=== PATIENT | male | born 1980 | race Caucasian/White ===

== ENCOUNTER 2023-09-18 10:33 | Inpatient (IN) ==
--- NOTE | 2023-09-18 11:14 | Emergency Department Note ---
Impression & Plan Syncope, Anemia, AMS (altered mental status), Elevated troponin ED Provider Note ED Provider Note NAME: DEWAYNE CALDERON AGE:43 SEX: Male : 1980 ARRIVES VIA: EMS INFORMANT: Patient ED PROVIDER(s): Sierra Tsang DO CHIEF COMPLAINT: Syncope versus seizure-like event HPI: This is a 43-year-old male presents emergency department due to concern for event [facility] where bystanders witnessed him go unresponsive and have seizure-like activity that lasted approximately 45 seconds per EMS report from bystanders on scene. Patient here at this time remembers standing in sheets, states he was drinking Mountain Dew and using his chewing tobacco, and does not remember coming here. He denies any recent illness, fevers or chills. He states he takes no medication. He denies any use of alcohol or recreational drugs. He denies any history of seizures in himself or any family members. PAST MEDICAL HISTORY:See Below PAST SURGICAL HISTORY:See Below FAMILY HISTORY:See Below SOCIAL HISTORY:See Below HOME MEDICATIONS:See Below ALLERGIES:See Below VITALS:See Below PHYSICAL EXAMINATION: GENERAL: alert, well appearing, well nourished, no distress, non-toxic EYE EXAM: normal conjunctiva, PERRL and EOM's grossly intact OROPHARYNX: no exudate, no erythema, lips, buccal mucosa, and tongue normal and mucous membranes are dry, remnants of chewing tobacco noted throughout the mouth NECK: supple, no nuchal rigidity, no adenopathy, non-tender LUNGS: Clear to auscultation. Normal chest wall mechanics, no w/r/r HEART: no murmurs, S1 normal and S2 normal ABDOMEN: abdomen soft, non-tender, normo-active bowel sounds, no masses, no rebound or guarding. BACK: Back is symmetrical on inspection and there is no deformity, no midline tenderness, no CVA tenderness. SKIN: no rashes, petechiae, orbruising UPPER EXTREMITIES: upper extremities are grossly normal. FROM, nml pulses b/l. LOWER EXTREMITIES: No pitting edema. FROM, nml pulses b/l. NEURO EXAM: Slow to answer questions and gives inappropriate responses to questions, cranial nerves II-XII grossly intact, normal speech, no facial droop,nogross weakness of arms, no gross weakness of legs. Gross sensation intact. No ataxia. Mildly tremulous throughout Vital Signs: reviewed and remarkable Differential Diagnosis: vasovagal event, infection, hypoglycemia, electrolyte abnormalities, toxidrome, substance abuse, dysrhythmia, ACS, as well as others were entertained. MEDICAL DECISION MAKING: This is a 43-year-old male brought in by EMS after an event at [facility] that was described them as possible syncope versus seizure. On arrival patient is able to answer few questions however does seem confused and does not remember much about the events of today. He was noted to be tachycardic however other vital signs were stable. Labs drawn and sent, IV established, EKG and chest ray performed bedside interpreted by me and patient monitored on telemetry. He was started on IV fluids initially due to concern for clinical dehydration and tachycardia noted. H&H revealed significant anemia which likely contributed to the events today as well as is contributing to his tachycardia. Patient did not seem to be able to understand my discussion at bedside regarding the need for blood transfusion and risk versus benefits. Given his confusion I asked him if I could contact a family member. He did provide me with his mom's name and phone number. Upon speaking to her we discussed his presentation and my concerns regarding his anemia. She gave verbal consent which was noted on the consent form for blood transfusion. 2 units were ordered. Protonix IV bolus and drip also added due to concern for possible alcohol use and occult GI bleed. CT head was negative. After finding of significant anemia and concern for occult GI bleed, patient was sent for CT of the abdomen and pelvis additionally. This did not show any acute pathology either. It is unclear if patient has been compliant with previously prescribed mental health medications additionally. Patient was noted to have an elevated troponin, I suspect this is due to demand based on significant anemia, although further evaluation may be necessary. Case discussed with the hospitalist team for additional evaluation and management. Consultation(s): 1340: DIscussed with Dr. Bishop, [facility] hospitalist team, for additional evaluation and management. ER Treatment Provided: 0021: Discussed with mom Susannah Brooks, regarding patient's condition. She states he has a history of schizoaffective disorder and sees providers at [facility] for his mental health. She states he does have a history of intermittent alcohol abuse, stating he goes on "binges". She states he also abuses nicotine. She states he has no history of substance abuse otherwise. She states he is supposed to be taking Seroquel and hydroxyzine from [facility] but frequently is noncompliant. She denies any knowledge of a prior history of GI bleed and the patient or any knowledge of a history of anemia. She was not aware that he was in the emergency room. After extensive discussion regarding my concerns, she gave verbal consent for a blood transfusion. This was noted on the consent form as I do not feel the patient can make an informed decision at this time as he seems confused. Diagnostics Interpreted By Me: -ECG: Sinus tachycardia at 120, normal axis, normal intervals, mild apparent peaked T waves noted in precordial leads, no other acute ST/T wave changes -Cardiac Monitoring: An order was placed for continuous cardiac monitoring. The monitor shows a rate of 113 with sinus tachycardia rhythm. -Laboratory studies: As stated above and show below. -Imaging studies: X-ray Chest: A single view study of the chest was reviewed and was negative for cardiomegaly, focal infiltrate, effusion, pulmonary edema, or wide mediastinum. Triage Nursing Note Reviewed Prior/Outside Records Reviewed Critical care: Critical care of 50 min performed to assess and manage high likelihood of life- threatening anemia and altered mental status, involving labs and imaging performed with assessment to evaluate anemia and altered mental status diagnosis with frequent reassessment. This time includes bedside time, treatment discussions with patient/family/consultants, documentation time and excludes procedure time. 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 current occupational status: disabled Feels Safe at Home: Yes Assistive Devices: None Allergies Allergies Allergy/AdvReac Type Severity Reaction Status Date / Time No Known Allergies Allergy Mild Verified 09/01/23 13:51 Home Meds Home Medications Medication Instructions Recorded Confirmed hydroxyzine HCl 10 mg tablet 10 mg PO DAILY PRN Anxiety 09/18/23 09/18/23 quetiapine 25 mg tablet See Rx Instructions .Route .COMPLEX 09/18/23 09/18/23 quetiapine 50 mg tablet See Rx Instructions .Route .COMPLEX 09/18/23 09/18/23 risperidone 3 mg tablet 0 mg PO QAM 09/18/23 09/18/23 Results & Data (ED) Vital Signs Vital Signs - 24 hr 09/18/23 13:44 Temperature 37.0 C Temperature Source Oral Pulse Rate 105 H Respiratory Rate 23 Blood Pressure 141/82 H Blood Pressure Mean 101 Pulse Oximetry 100 Laboratory Data 09/19/23 05:43 09/19/23 05:38 Lab Results 09/18/23 09/18/23 09/18/23 Range/Units 10:40 12:08 12:36 WBC 11.74 H (4.8-10.8) K/ul RBC 1.36 L (4.70-6.10) M/uL Hgb 4.1 L* (14.0-18.0) g/dl Hct 13.2 L* (42.0-52.0) % MCV 97.1 (80.0-100.0) fL MCH 30.1 (25.0-34.0) pg MCHC 31.1 L (32.0-36.0) g/dL RDW Std Deviation 52.6 H (36.4-46.3) fL RDW Coeff of Federico 15.0 H (11.5-14.5) % Plt Count 524 H (130-400) K/uL MPV 9.4 (9.4-12.4) fL Immature Gran % (Auto) 1.5 % Neut % (Auto) 82.5 % Lymph % (Auto) 7.9 % Rapides % (Auto) 7.8 % Eos % (Auto) 0.0 % Baso % (Auto) 0.3 % Reticulocyte % (Auto) 18.98 H (0.50-2.00) % Neut # (Auto) 9.68 H (1.40-6.50) K/uL Lymph # (Auto) 0.93 L (1.20-3.40) K/uL Rapides # (Auto) 0.92 H (0.11-0.59) K/uL Eos # (Auto) 0.00 (0.00-0.50) K/uL Baso # (Auto) 0.03 (0.00-0.20) K/uL Reticulocyte # 0.300 H (0.020-0.100) 10^6/uL Immature Gran # (Auto) 0.18 (0.01-0.20) K/uL Absolute Nucleated RBC 0.03 (0.00-0.12) K/uL Nucleated RBC % (auto) 0.3 % Polychromasia 1+ Hypochromasia Present PT 12.0 (9.0-12.0) Seconds INR 1.1 (0.9-1.1) Sodium 131 L (136-145) mmol/L Potassium 3.5 (3.5-5.1) mmol/L Chloride 98 (98-107) mmol/L Carbon Dioxide 15 L (21-32) mmol/L Anion Gap 18 H (3-11) BUN 16 (6-23) mg/dl Creatinine 1.02 (0.6-1.4) mg/dl Est Cr Clr Drug Dosing 89.7 ml/min Est GFR ( Amer) 102.4 ml/min Est GFR (Non-Af Amer) 88.4 ml/min BUN/Creatinine Ratio 15.7 (10-20) Glucose 144 H (70-99(Fasting)) mg/dl Calcium 8.0 L (8.6-10.3) mg/dl Magnesium 2.2 (1.7-2.4) mg/dl Iron < 10 L (35-175) mcg/dl TIBC TNP Unsaturated IBC 395 H (155-355) mcg/dl Transferrin % Sat TNP Ferritin 22.5 (8-388) ng/ml Total Bilirubin 0.3 (0.2-1.0) mg/dl AST 34 (13-39) U/L ALT 64 H (7-52) U/L Alkaline Phosphatase 69 (34-104) U/L Lactate Dehydrogenase 204 (86-244) U/L Troponin I High Sens 84.5 H* (0-20) pg/ml Total Protein 5.8 L (6.0-8.3) gm/dl Albumin 3.6 (3.4-5.0) gm/dl Globulin 2.2 L (2.5-4.0) gm/dl Albumin/Globulin Ratio 1.6 (0.9-2) Lipase 25 (11-82) U/L Vitamin B12 369 (180-914) pg/ml Folate > 22.30 (>5.38) ng/ml Procalcitonin 0.03 (0-0.5) ng/ml TSH 2.187 (0.300-4.500) uIu/ml Ethyl Alcohol mg/dL < 10.0 (<10.0) mg/dl Blood Type O Positive Blood Type Recheck Antibody Screen NEGATIVE Crossmatch See Detail 09/18/23 Range/Units 12:39 WBC (4.8-10.8) K/ul RBC (4.70-6.10) M/uL Hgb (14.0-18.0) g/dl Hct (42.0-52.0) % MCV (80.0-100.0) fL MCH (25.0-34.0) pg MCHC (32.0-36.0) g/dL RDW Std Deviation (36.4-46.3) fL RDW Coeff of Federico (11.5-14.5) % Plt Count (130-400) K/uL MPV (9.4-12.4) fL Immature Gran % (Auto) % Neut % (Auto) % Lymph % (Auto) % Rapides % (Auto) % Eos % (Auto) % Baso % (Auto) % Reticulocyte % (Auto) (0.50-2.00) % Neut # (Auto) (1.40-6.50) K/uL Lymph # (Auto) (1.20-3.40) K/uL Rapides # (Auto) (0.11-0.59) K/uL Eos # (Auto) (0.00-0.50) K/uL Baso # (Auto) (0.00-0.20) K/uL Reticulocyte # (0.020-0.100) 10^6/uL Immature Gran # (Auto) (0.01-0.20) K/uL Absolute Nucleated RBC (0.00-0.12) K/uL Nucleated RBC % (auto) % Polychromasia Hypochromasia PT (9.0-12.0) Seconds INR (0.9-1.1) Sodium (136-145) mmol/L Potassium (3.5-5.1) mmol/L Chloride (98-107) mmol/L Carbon Dioxide (21-32) mmol/L Anion Gap (3-11) BUN (6-23) mg/dl Creatinine (0.6-1.4) mg/dl Est Cr Clr Drug Dosing ml/min Est GFR ( Amer) ml/min Est GFR (Non-Af Amer) ml/min BUN/Creatinine Ratio (10-20) Glucose (70-99(Fasting)) mg/dl Calcium (8.6-10.3) mg/dl Magnesium (1.7-2.4) mg/dl Iron (35-175) mcg/dl TIBC Unsaturated IBC (155-355) mcg/dl Transferrin % Sat Ferritin (8-388) ng/ml Total Bilirubin (0.2-1.0) mg/dl AST (13-39) U/L ALT (7-52) U/L Alkaline Phosphatase (34-104) U/L Lactate Dehydrogenase (86-244) U/L Troponin I High Sens (0-20) pg/ml Total Protein (6.0-8.3) gm/dl Albumin (3.4-5.0) gm/dl Globulin (2.5-4.0) gm/dl Albumin/Globulin Ratio (0.9-2) Lipase (11-82) U/L Vitamin B12 (180-914) pg/ml Folate (>5.38) ng/ml Procalcitonin (0-0.5) ng/ml TSH (0.300-4.500) uIu/ml Ethyl Alcohol mg/dL (<10.0) mg/dl Blood Type Blood Type Recheck O Positive Antibody Screen Crossmatch Administered Medications Discontinued Medications Sodium Chloride (Nss) 1,000 mls @ 999 mls/hr IV .Q1H1M ONE Stop: 09/18/23 12:10 Last Infusion: 09/18/23 12:19 Dose: Infused Documented By: Admin: 09/18/23 11:16 Dose: 999 mls/hr Documented By: SHANTELLE Pantoprazole Sodium 80 mg/ (Dextrose) 120 mls @ 480 mls/hr IV NOW ONE Stop: 09/18/23 12:46 Last Infusion: 09/18/23 13:53 Dose: Infused Documented By: Admin: 09/18/23 13:10 Dose: 480 mls/hr Documented By: SHANTELLE Pantoprazole Sodium 40 mg/ (Dextrose) 100 mls @ 20 mls/hr IV Q5H KELLEN Stop: 10/18/23 12:59 Last Admin: 09/19/23 08:36 Dose: 8 mg/hr, 20 mls/hr Documented By: Infusion: 09/19/23 08:31 Dose: Infused Documented By: Admin: 09/19/23 03:31 Dose: 8 mg/hr, 20 mls/hr Documented By: Infusion: 09/19/23 03:29 Dose: Infused Documented By: Admin: 09/18/23 22:29 Dose: 8 mg/hr, 20 mls/hr Documented By: Infusion: 09/18/23 22:29 Dose: Infused Documented By: Admin: 09/18/23 17:46 Dose: 8 mg/hr, 20 mls/hr Documented By: Infusion: 09/18/23 17:46 Dose: Infused Documented By: Admin: 09/18/23 13:53 Dose: 8 mg/hr, 20 mls/hr Documented By: SHANTELLE Sodium Chloride (Nss) 1,000 mls @ 125 mls/hr IV .Q8H KELLEN Stop: 10/18/23 13:29 Last Infusion: 09/19/23 07:26 Dose: Infused Documented By: Admin: 09/18/23 13:26 Dose: 125 mls/hr Documented By: SHANTELLE Lorazepam 1 mg/ Syringe 1 mls @ 2 mls/min IV ONE PRN; Protocol PRN Reason: EtoH Withdrawal AWSS 6-10 Last Admin: 09/18/23 19:44 Dose: 2 mls/min Documented By: CPB Lactated Ringer's (Lr) 1,000 mls @ 100 mls/hr IV .Q10H KELLEN Stop: 10/18/23 14:14 Last Infusion: 09/19/23 08:40 Dose: Infused Documented By: Admin: 09/19/23 00:43 Dose: 100 mls/hr Documented By: Infusion: 09/19/23 00:43 Dose: Infused Documented By: Admin: 09/18/23 15:24 Dose: 100 mls/hr Documented By: DAYAMI Thiamine HCl 500 mg/ Sodium (Chloride) 55 mls @ 210 mls/hr IV Q8H KELLEN Stop: 09/20/23 22:59 Last Infusion: 09/19/23 07:03 Dose: Infused Documented By: AMYaron Admin: 09/19/23 06:37 Dose: 210 mls/hr Documented By: Infusion: 09/18/23 22:44 Dose: Infused Documented By: Admin: 09/18/23 22:27 Dose: 210 mls/hr Documented By: ELY Folic Acid 1 mg/ Syringe 10 mls @ 5 mls/min IV ONE ONE Stop: 09/18/23 14:31 Last Admin: 09/18/23 15:24 Dose: 5 mls/min Documented By: DAYAMI Folic Acid 1 mg/ Syringe 10 mls @ 5 mls/min IV QAM KELLEN Stop: 10/19/23 08:59 Last Admin: 09/19/23 08:37 Dose: 5 mls/min Documented By: ALAYNA Thiamine HCl 500 mg/ Sodium (Chloride) 55 mls @ 210 mls/hr IV NOW STA Stop: 09/18/23 15:10 Last Infusion: 09/18/23 16:49 Dose: Infused Documented By: Admin: 09/18/23 16:18 Dose: 210 mls/hr Documented By: DAYAMI Potassium Chloride (K Enzo / Wtr) 10 meq in 100 mls @ 100 mls/hr IV Q1H KELLEN Stop: 09/18/23 18:14 Last Infusion: 09/18/23 20:45 Dose: Infused Documented By: Admin: 09/18/23 19:37 Dose: 100 mls/hr Documented By: Infusion: 09/18/23 18:44 Dose: Infused Documented By: Admin: 09/18/23 17:44 Dose: 100 mls/hr Documented By: Infusion: 09/18/23 17:36 Dose: Infused Documented By: Admin: 09/18/23 16:36 Dose: 100 mls/hr Documented By: DAYAMI Acetaminophen (Ofirmev) 1,000 mg in 100 mls @ 400 mls/hr IV NOW STA Stop: 09/18/23 15:57 Last Infusion: 09/18/23 16:27 Dose: Infused Documented By: Admin: 09/18/23 15:50 Dose: 400 mls/hr Documented By: DAYAMI Potassium Chloride/Dextrose/Sod Cl (D5nss + 20meq Kcl) 20 meq in 1,000 mls @ 80 mls/hr IV .[id number] [facility]; Protocol Stop: 10/19/23 07:59 Last Admin: 09/19/23 10:51 Dose: 80 mls/hr Documented By: ALAYNA Ioversol (Optiray 320 100ml) 93 ml IV ONCE ONE Stop: 09/18/23 12:53 Last Admin: 09/18/23 12:53 Dose: 93 ml Documented By: SERA Miscellaneous (Remove Nicoderm Patch) 1 each N/A DAILY@0859 [facility] Stop: 10/19/23 08:58 Last Admin: 09/19/23 08:37 Dose: Not Given Documented By: ALAYNA Nicotine (Nicotine 14 Mg/24 Hr Patch) [facility] Stop: 10/19/23 08:59 Last Admin: 09/19/23 08:37 Dose: Not Given Documented By: MelissaO Nicotine (Nicotine 14 Mg/24 Hr Patch) 14 mg TD NOW STA Stop: 09/18/23 14:55 Last Admin: 09/18/23 15:25 Dose: 14 mg Documented By: DAYAMI Pantoprazole Sodium (Pantoprazole Bolus/Drip) 1 each IV NOW STA Stop: 09/18/23 12:33 Last Admin: 09/18/23 13:53 Dose: Not Given Documented By: SHANTELLE Imaging Data Radiologist's Impression: Chest X-Ray 09/18/23 11:10 SINGLE VIEW CHEST CLINICAL HISTORY: Seizure. Vomiting. FINDINGS: 2 AP, portable, upright chest radiographs are compared to study dated 10/02/2021. The cardiomediastinal silhouette is unremarkable. The pulmonary vasculature appears congested. Airspace opacities are seen at both lung bases. No pneumothorax is seen. The bony thorax is grossly intact. IMPRESSION: 1. The pulmonary vasculature appears congested. 2. Airspace opacities are seen at both lung bases. This could represent a component of pulmonary edema versus an infectious/inflammatory. Clinical correlation will be required and radiographic follow-up to resolution is recommended ACT 112: Negative or not required by law. Electronically signed by: Sanjay Kraft M.D. 09/18/2023 11:[address] 09/18/23 11:10 CT OF THE HEAD WITHOUT CONTRAST CLINICAL HISTORY: Seizure. COMPARISON STUDY: Head CT June 12, 2013. CT DOSE: 625.8 mGy.cm TECHNIQUE: Helical axial images of the head were obtained without IV contrast. Automated exposure control was utilized for the study. A dose lowering technique was utilized adhering to the principles of ALARA. FINDINGS: No acute intracranial hemorrhage, midline shift or mass effect is present. The ventricular system is unremarkable. The basal cisterns are patent. No extra-axial collections are present. There are no findings to suggest acute dural sinus thrombosis or acute territorial infarct. No significant calvarial abnormalities are present. Visualized portions of the sinuses and mastoid air cells are clear. IMPRESSION: 1. No acute intracranial findings. 2. No calvarial fractures. ACT 112: Negative or not required by law. Electronically signed by: Carlos Alberto Martínez M.D. 09/18/2023 12:00 PM Abdomen/Pelvis CT 09/18/23 12:33 CT OF THE ABDOMEN AND PELVIS WITH CONTRAST CLINICAL HISTORY: anemia, vomiting, likely GI bleed COMPARISON STUDY: None. TECHNIQUE: Following IV administration of 93 mL of Optiray, axial images of the abdomen and pelvis were obtained from the lung bases to the proximal femurs. Images were reviewed in the axial, sagittal, and coronal planes. IV contrast was administered without complication. Automated exposure control was utilized for the study. A dose lowering technique was utilized adhering to the principles of ALARA. CT DOSE: 1071.24 mGy.cm FINDINGS: Lung bases are unremarkable. No pneumatosis, free air or portal venous gas is present. The liver, spleen, adrenal glands, left kidney and pancreas are normal. There is no biliary or pancreatic ductal dilatation. No peripancreatic or pericholecystic infiltration is present. Water attenuation 1.9 cm right renal lesion reflects a cyst. There are no urinary calculi. Bladder is mildly distended. Caliber and wall thickness of small and large bowel are normal. The appendix is normal. Sensitivity for detection of bowel mucosal lesions is diminished on CT but none are identified. There is no lymphadenopathy. There are no fluid collections. Major vasculature is patent. IMPRESSION: 1. No acute process within the abdomen or pelvis. 2. No bowel obstruction. No bowel wall thickening. Normal appendix. ACT 112: Negative or not required by law. Electronically signed by: Carlos Alberto Martínez M.D. 09/18/2023 1:10 PM Discharge Plan Visit Data Chief Complaint: Seizure Stated Complaint: SEIZURE, SYNCOPE, FALL ED Provider: Sierra Tsang Discharge Problem: Syncope, Anemia, AMS (altered mental status), Elevated troponin Patient Disposition: Admitted As Inpatient Discharge Instructions Interventions: ED Discharge Assessment Last Done: 09/18/23 15:12
[2023-09-18] MEDS: SODIUM CHLORIDE 0.9% 1,000 ML IV ONE (11:16)
--- NOTE | 2023-09-18 11:42 | XRay Report ---
SINGLE VIEW CHEST CLINICAL HISTORY: Seizure. Vomiting. FINDINGS: 2 AP, portable, upright chest radiographs are compared to study dated 10/02/2021. The cardio mediastinal silhouette is unremarkable. The pulmonary vasculature appears congested. Airspace opaciti es are seen at both lung bases. No pneumothorax is seen. The bony thorax is grossly intact. IMPRESSION: 1. The pulmonary vasculature appears congested. 2. Airspace opacities are seen at both lung bases. This could represent a component of pulmonary neal a versus an infectious/inflammatory. Clinical correlation will be required and radiographic follow-up to resolution is recommended ACT 112: Negative or not required by law. Electronically signed by: Sanjay Kraft M.D. 09/18/2023 11:41 AM
[2023-09-18 12:00] LABS: Alanine Aminotransferase 64 U/L (7-52); Albumin Globulin Ratio 1.6 (0.9-2); Albumin Level 3.6 gm/dl (3.4-5.0); Alkaline Phosphatase 69 U/L (34-104); Anion Gap 18 (3-11); Aspartate Aminotransferase 34 U/L (13-39); BUN Creatinine Ratio 15.7 (10-20); Bilirubin,Total 0.3 mg/dl (0.2-1.0); Blood Urea Nitrogen 16 mg/dl (6-23); Carbon Dioxide 15 mmol/L (21-32); Chloride 98 mmol/L (98-107); Creatinine Clr Calc Pharmacy 89.7 ml/min; Est GFR (African American) 102.4 ml/min; Est GFR (Non-African American) 88.4 ml/min; Globulin 2.2 gm/dl (2.5-4.0); Glucose 144 mg/dl (70-99(Fasting)); Lipase 25 U/L (11-82); Magnesium 2.2 mg/dl (1.7-2.4); Potassium 3.5 mmol/L (3.5-5.1); Sodium 131 mmol/L (136-145); Total Protein 5.8 gm/dl (6.0-8.3)
--- NOTE | 2023-09-18 12:01 | CT Scan Report ---
CT OF THE HEAD WITHOUT CONTRAST CLINICAL HISTORY: Seizure. COMPARISON STUDY: Head CT June 12, 2013. CT DOSE: 625.8 mGy.cm TECHNIQUE: Helical axial images of the head were obtained without IV contrast. Automated exposure con trol was utilized for the study. A dose lowering technique was utilized adhering to the principles o f ALARA. FINDINGS: No acute intracranial hemorrhage, midline shift or mass effect is present. The ventricular system is unremarkable. The basal cisterns are patent. No extra-axial collections are present. There are no findings to suggest acute dural sinus thrombosis or acute territorial infarct. No significant calvarial abnormalities are present. Visualized portions of the sinuses and mastoid air cells are cholo ar. IMPRESSION: 1. No acute intracranial findings. 2. No calvarial fractures. ACT 112: Negative or not required by law. Electronically signed by: Carlos Alberto Martínez M.D. 09/18/2023 12:00 PM
[2023-09-18 12:03] LABS: INR 1.1 (0.9-1.1)
[2023-09-18 12:07] LABS: Troponin I High Sensitivity 84.5 pg/ml (0-20)
[2023-09-18] MEDS ORDERED: SODIUM CHLORIDE 0.9% 250 ML IV PRN ×3 (12:07→22:25)
[2023-09-18 12:11] LABS: Hematocrit (blood only) 13.2 % (42.0-52.0); Hemoglobin 4.1 g/dl (14.0-18.0); Mean Corpuscular Hemoglobin 30.1 pg (25.0-34.0); Mean Corpuscular Hgb Conc 31.1 g/dL (32.0-36.0); Mean Corpuscular Volume 97.1 fL (80.0-100.0); Mean Platelet Volume 9.4 fL (9.4-12.4); Nucleated RBC # (auto) 0.03 K/uL (0.00-0.12); Nucleated RBC % (auto) 0.3 %; Platelet Count 524 K/uL (130-400); RDW Standard Deviation 52.6 fL (36.4-46.3); Red Blood Count 1.36 M/uL (4.70-6.10); White Blood Count 11.74 K/ul (4.8-10.8)
[2023-09-18 12:15] LABS: Thyroid Stimulating Hormone 2.187 uIu/ml (0.300-4.500)
[2023-09-18 12:18] LABS: Basophils # (auto) 0.03 K/uL (0.00-0.20); Basophils % (auto) 0.3 %; Hypochromasia Present; Immature Granulocytes # (auto) 0.18 K/uL (0.01-0.20); Immature Granulocytes % (auto) 1.5 %; Lymphocytes # (auto) 0.93 K/uL (1.20-3.40); Lymphocytes % (auto) 7.9 %; Monocytes # (auto) 0.92 K/uL (0.11-0.59); Monocytes % (auto) 7.8 %; Neutrophils # (auto) 9.68 K/uL (1.40-6.50); Neutrophils % (auto) 82.5 %; Polychromasia 1+
[2023-09-18] MEDS: OPTIRAY 320 100ml IV ONE (12:53)
[2023-09-18] MEDS: PANTOprazole 80 MG in DEXTROSE 5% 100 ML IV ONE (13:10)
--- NOTE | 2023-09-18 13:11 | CT Scan Report ---
CT OF THE ABDOMEN AND PELVIS WITH CONTRAST CLINICAL HISTORY: anemia, vomiting, likely GI bleed COMPARISON STUDY: None. TECHNIQUE: Following IV administration of 93 mL of Optiray, axial images of the abdomen and pelvis we re obtained from the lung bases to the proximal femurs. Images were reviewed in the axial, sagittal, and coronal planes. IV contrast was administered without complication. Automated exposure control wa s utilized for the study. A dose lowering technique was utilized adhering to the principles of ALARA . CT DOSE: 1071.24 mGy.cm FINDINGS: Lung bases are unremarkable. No pneumatosis, free air or portal venous gas is present. The liver, spleen, adrenal glands, left kidney and pancreas are normal. There is no biliary or pancreatic ductal dilatation. No peripancreatic or pericholecystic infiltration is present. Water attenuation 1 .9 cm right renal lesion reflects a cyst. There are no urinary calculi. Bladder is mildly distended. Caliber and wall thickness of small and large bowel are normal. The appendix is normal. Sensitivity f or detection of bowel mucosal lesions is diminished on CT but none are identified. There is no lympha denopathy. There are no fluid collections. Major vasculature is patent. IMPRESSION: 1. No acute process within the abdomen or pelvis. 2. No bowel obstruction. No bowel wall thickening. Normal appendix. ACT 112: Negative or not required by law. Electronically signed by: Carlos Alberto Martínez M.D. 09/18/2023 1:10 PM
[2023-09-18] MEDS: SODIUM CHLORIDE 0.9% 1,000 ML IV SCH (13:26)
--- NOTE | 2023-09-18 13:51 | History & Physical Report ---
Date of Service September 18, 2023 Assessment & Plan (1) Symptomatic anemia: Plan: -Admit to the PCU on tele and pulse oximetry -Currently stable and non-toxic appearing -Presented to the ED via EMS after having a syncopal episode in a local [employer] -On arrival the patient is confused, in sinus tachycardia, and has a Hgb of 4.5 (unsure of previous baseline) -No signs of active bleeding on exam or CT of the abd/pelvis w/con >No signs of cirrhosis on CT today, no previous hx of Varices -Patient did say he has been taking 4-6 tabs of Advil daily or headaches, high suspicion for upper GI bleed at this time -Patient was consented for blood and ordered 2 units of PRBC's in the ED, currently receiving the first unit now -Anemia panel was obtained prior to first unit starting, will follow -Will repeat q6h CBC after he receives his second unit of PRBC's -Continue pantoprazole drip for now -GI consult placed -Strict NPO for now -Will order fecal occult blood -BL SCD's for DVT PPX -AM CMP, mag, PT/INR (2) Encephalopathy: Plan: -Patient is currently confused and not responding appropriately to questions -Is currently unable to explain to me his acute medical needs or the risks if he were to leave against medical advice -Differential is broad at this time including but not limited to his known Schizophrenia, anemia, possible alcohol withdrawal, possible Wernicke's encephalopathy, infection -CT of the head/brain wo con was negative for acute findings, no focal neuro defects on exam -LFT's are WNL, no signs of cirrhosis on CT -UA and urine drug screen were negative -Will continue with the following treatment plan for now: >Conitnue to transfuse for Hgb < 8 with his elevated troponin >Will start high dose thiamine at 500 mg IV TID x 2 dose for possible Wernicke's encephalopathy >Will start AWSS protocol for possible alcohol withdrawal >Added on procal with his mild leukocytosis and airspace opacities on CXR, if procal is positive will treat for possible aspiration pneumonia -At the time of admission the patient does NOT have the capacity to leave AMA -Patient's mother will be coming up from [place] this afternoon/evening and will be able to assist with ongoing decision making -It appears that he is on HS Seroquel and am Risperdal per his med rec, QTc is currnetly 480 -Patient is currently calm and cooperative, if he were to become agitated/aggressive and becomes a risk to himself or staff phy (3) Alcohol abuse: Plan: -Patient's mother reports patient goes on alcohol binges -Unsure of last binge at this time, patient reports it was 09/10 but not currently a reliable historian -Alcohol level is currently negative -Start high dose thiamine TID x 2 days -Daily folic acid -Start AWSS at risk protocol -Seizure precautions ordered (4) Elevated troponin: Plan: -Initial high sen trop of 84 -Patient denies chest pain, no acute ST segment or T-wave changes on ECG -Likely due to demand from his severe anemia -Two hour repeat high sen trop is in process -Will continue to trend until trop reaches plateau -If it continues to increase significantly will obtain TTE -Continue to monitor on tele -Will replete K+ to a level of at least 4 and mag of at least 2 (5) Schizophrenia: Plan: -May need to use prn IV antipsychotics if he becomes agitated/aggressive -Would need to monitor QTc closely if antipsychotics are needed (6) Acute blood loss anemia: (7) Iron deficiency anemia: (8) Acute gastrointestinal bleeding: Plan The patient was discussed with Dr. Bishop at the time of the admission History of Present Illness Chief Complaint: Syncopal episode vs seizure Primary Care Provider: DO Jules Cox is a 43 year old male with a PMH significant for alcohol abuse, schizophrenia, smokeless tobacco abuse who presented to the [facility] ED via EMS on 09/18/23 after possibly syncopal/seizure while standing in line at [facility]. On arrival to the ED he was noted to be hypertensive at 151/77, tachycardic at 120, but otherwise stable. Labs were significant for a leukocytosis of 11 with neutrophil predominance of 9,, hgb of 4.1 (no previous to compare), Hct of 13, MCV of 97, MCHC of 31, platelet count of 524, INR WNL, AG of 18 with Bicarb WNL, sodium of 131, corrected calcium of 8.3, ALT of 64, initial high sen trop of 84, and negative alcohol level. CT of the head was read a s negative for acute findings. Chest xray was read as 1. The pulmonary vasculature appears congested. 2. Airspace opacities are seen at both lung bases. This could represent a component of pulmonary edema versus an infectious/inflammatory. Clinical correlation will be required and radiographic follow-up to resolution is recommended. CT of the abd/pelvis w/con was read as 1. No acute process within the abdomen or pelvis. 2. No bowel obstruction. No bowel wall thickening. Normal appendix.. Prior to admission the patient was given an IV pantoprazole bolus with drip, consented for blood, and ordered 2 units of PRBCs. At the time of the exam the patient was sitting in bed in no acute distress. History is difficult to obtain at this time due to the patient's current mental status. He states he was in [employer], drinking Mountain [place], and listening to music then woke up here. He uses chewing tobacco, which appears to be the black substance in his teeth/mouth. When asked about any recent pain he states that he has been having headaches. He then mentions he's been using advil for his headaches. Up to 4-6 pills daily. When asked about drinking he states that his last drank alcohol on 09/12. However, he often goes off on nonsensical tangents which do not make sense. He mentions playing the guitar when I ask about abdominal pain. I explained to him that we need to admit him to the Hospital due to very low hemoglobin level and concern for a bleed in his GI tract. I explained that his Hgb is so low, if he does not receive blood he could have catastrophic injury to any organ in his body. I asked him to explain back to me why we were admitting him to the hospital. He states "I need to get blood because I'm fat". At this time I do not think that the patient has proper insight into his serious clinical condition to leave AMA if her were to try. I was able to call and speak with Jules's Mother, Kush Brooks ([phone]) who lives in [place]. She will be coming up later today to see him. She states that she comes to [place] weekly to help care for Jules. Unfortunately he has been mentally Unstable for years. He will go on a lcohol binges and uses nicotine but she states he does not use other recreational substances. She last saw him on 09/10 when she came up to take him to some appointments. Please refer to Dr. Bishop's attestation for any changes to the treatment plan Allergies Allergy/AdvReac Type Severity Reaction Status Date / Time No Known Allergies Allergy Mild Verified 09/01/23 13:51 Home Medications Medication Instructions Recorded Confirmed Type hydroxyzine HCl 10 mg tablet 10 mg PO DAILY PRN Anxiety 09/18/23 09/18/23 History quetiapine 25 mg tablet See Rx Instructions .Route .COMPLEX 09/18/23 09/18/23 History quetiapine 50 mg tablet See Rx Instructions .Route .COMPLEX 09/18/23 09/18/23 History risperidone 3 mg tablet 0 mg PO QAM 09/18/23 09/18/23 History Past Med/Surg History Medical History Alcohol dependence Seizure Alcohol abuse Schizophrenia Social History Smoking Status: Current every day smoker Tobacco Type: Cigars and Smokeless Tobacco (Dip or Chew) Second Hand Exposure: No; Do You Dip or Chew Tobacco: Yes; Hx Alcohol Use: Yes Alcohol type: hard liquor Hx Substance Use: No Preferred Language: Scottish Communication Ability: Effective House Calls Nurse Required: No Beliefs That Will Affect Care: None Current Living Situation: Alone Current Living Situation Comment: Mother lives nearby. current occupational status: disabled Feels Safe at Home: Yes Assistive Devices: None Physical Exam Physical Exam: Physical Exam: General: In no acute distress, stated age, non-toxic appearing HEENT: Normocephalic, atraumatic, no scleral icterus, pupils around round, symmetrical, and reactive to light, patient with what looks like dried chewing tobacco on his lips and between his teeth, no signs of hematemesis or blood in the posterior-oropharynx, trachea midline, no thyromegaly Chest/Pulm: No respiratory distress, symmetrical chest expansion, rhonchi noted in the BL lower lung keller, otherwise CTA Cardiac: tachycardic rate, regular rhythm, no murmurs noted Abdomen: Negative for ascites and bruising, normoactive bowel sounds, soft, non-tender to palpation throughout Musculoskeletal: Symmetrical and without signs of acute trauma, upper and lower extremities with full ROM, no atrophy, spasticity, or flaccidity Extremities: Radial, dorsalis pedis, and posterior tibial pulses are intact and symmetrical, no edema noted in the BL LE's Skin: Warm, dry, no rashes , lesions, or scars noted Neuro: Alert and oriented to person, place, month, but thought it was 2019, CN II-XII tested and intact, no tremors noted Psych: No acute distress, intermittently confused and distracted, will respond with nonsensical responses to questions at times >Was unable to clearly explain his current medical issues and his need for treatment >Was unable to tell me the consequences of not receiving medical treatment at this time Results & Data Results & Data Vital Signs (Past 12 Hours) Vital Signs Temp Pulse Pulse Resp BP BP Pulse Ox 09/18/23 13:44 37.0 C 105 H 23 141/82 H 100 09/18/23 13:02 105 H 23 151/77 H 98 09/18/23 10:37 36.8 C 120 H 23 111/83 98 O2 Del Method 09/18/23 13:44 09/18/23 13:02 Room Air 09/18/23 10:37 Room Air Laboratory Results Abnormal lab results 09/18/23 09/18/23 Range/Units 10:40 12:36 WBC 11.74 H (4.8-10.8) K/ul RBC 1.36 L (4.70-6.10) M/uL Hgb 4.1 L* (14.0-18.0) g/dl Hct 13.2 L* (42.0-52.0) % MCHC 31.1 L (32.0-36.0) g/dL RDW Std Deviation 52.6 H (36.4-46.3) fL RDW Coeff of Federico 15.0 H (11.5-14.5) % Plt Count 524 H (130-400) K/uL Neut # (Auto) 9.68 H (1.40-6.50) K/uL Lymph # (Auto) 0.93 L (1.20-3.40) K/uL [place]ford # (Auto) 0.92 H (0.11-0.59) K/uL Sodium 131 L (136-145) mmol/L Carbon Dioxide 15 L (21-32) mmol/L Anion Gap 18 H (3-11) Glucose 144 H (70-99(Fasting)) mg/dl Calcium 8.0 L (8.6-10.3) mg/dl ALT 64 H (7-52) U/L Troponin I High Sens 84.5 H* (0-20) pg/ml Total Protein 5.8 L (6.0-8.3) gm/dl Globulin 2.2 L (2.5-4.0) gm/dl Crossmatch See Detail Diagnostic Findings Chest X-Ray 09/18/23 11:10 SINGLE VIEW CHEST CLINICAL HISTORY: Seizure. Vomiting. FINDINGS: 2 AP, portable, upright chest radiographs are compared to study dated 10/02/2021. The cardiomediastinal silhouette is unremarkable. The pulmonary vasculature appears congested. Airspace opacities are seen at both lung bases. No pneumothorax is seen. The bony thorax is grossly intact. IMPRESSION: 1. The pulmonary vasculature appears congested. 2. Airspace opacities are seen at both lung bases. This could represent a component of pulmonary edema versus an infectious/inflammatory. Clinical correlation will be required and radiographic follow-up to resolution is recommended ACT 112: Negative or not required by law. Electronically signed by: Sanjay Kraft M.D. 09/18/2023 11:[address] 09/18/23 11:10 CT OF THE HEAD WITHOUT CONTRAST CLINICAL HISTORY: Seizure. COMPARISON STUDY: Head CT June 12, 2013. CT DOSE: 625.8 mGy.cm TECHNIQUE: Helical axial images of the head were obtained without IV contrast. Automated exposure control was utilized for the study. A dose lowering technique was utilized adhering to the principles of ALARA. FINDINGS: No acute intracranial hemorrhage, midline shift or mass effect is present. The ventricular system is unremarkable. The basal cisterns are patent. No extra-axial collections are present. There are no findings to suggest acute dural sinus thrombosis or acute territorial infarct. No significant calvarial ab normalities are present. Visualized portions of the sinuses and mastoid air cells are clear. IMPRESSION: 1. No acute intracranial findings. 2. No calvarial fractures. ACT 112: Negative or not required by law. Electronically signed by: Carlos Alberto Martínez M.D. 09/18/2023 12:00 PM Abdomen/Pelvis CT 09/18/23 12:33 CT OF THE ABDOMEN AND PELVIS WITH CONTRAST CLINICAL HISTORY: anemia, vomiting, likely GI bleed COMPARISON STUDY: None. TECHNIQUE: Following IV administration of 93 mL of Optiray, axial images of the abdomen and pelvis were obtained from the lung bases to the proximal femurs. Images were reviewed in the axial, sagittal, and coronal planes. IV contrast was administered without complication. Automated exposure control was utilized for the study. A dose lowering technique was utilized adhering to the principles of ALARA. CT DOSE: 1071.24 mGy.cm FINDINGS: Lung bases are unremarkable. No pneumatosis, free air or portal venous gas is present. The liver, spleen, adrenal glands, left kidney and pancreas are normal. There is no biliary or pancreatic ductal dilatation. No peripancreatic or pericholecystic infiltration is present. Water attenuation 1.9 cm right renal lesion reflects a cyst. There are no urinary calculi. Bladder is mildly distended. Caliber and wall thickness of small and large bowel are normal. The appendix is normal. Sensitivity for detection of bowel mucosal lesions is diminished on CT but none are identified. There is no lymphadenopathy. There are no fluid collections. Major vasculature is patent. IMPRESSION: 1. No acute process within the abdomen or pelvis. 2. No bowel obstruction. No bowel wall thickening. Normal appendix. ACT 112: Negative or not required by law. Electronically signed by: Carlos Alberto Martínez M.D. 09/18/2023 1:10 PM ECG Additional Comments: Sinus tachycardia Otherwise normal ECG When compared with ECG of 11-JUN-2013 22:08, T wave amplitude has increased in Lateral leads Code Status & VTE Plan Code Status Full Code VTE Prophylaxis Plan VTE Prophylaxis will be ordered: Yes Supervising Physician Co-Signing Physician Notes I personally saw and examined the patient. I verified all avila points and agree with Vitor Bullard PA-C with the following exceptions and/or additions: 43 year old male presents to the ER following a syncopal event with seizure like activity. Unable to get any relevant history from the patient. He is alert and orientated x3 however tels me he is in hospital because he has a Playstation 4 with lots of games and he has been playing it a lot recently. He denies any chest pain, shortness of breath or dizziness. O/E Pale appearing, A&Ox3, HS RRR, no murmurs, Chest CTAB, Abdo SNT, no CVA tenderness A/P Iron def. acute blood loss anemia / acute GI bleed - IV pantoprazole, Transfuse 2 units blood and repeat Hgb. Aim Hgb > 7, FOB, consult gastroenterology, NPO Encephalopathy / schizoaffective disorder - treat for Wernicke's encephalopathy with high dose IV thiamine, consult psychiatry Alcohol abuse - monitor for alcohol withdrawal, lorazepam at risk protocol PG Care Time/CCT Total # of Minutes Spent Total Time Spent with Patient: Total time spent is greater than 50% in coordination of care (as documented) at patient's floor/unit and/or counseling patient: [place] [address] INT INP/OBS CARE 3/75MIN Patient Type New Medical Decision Making High Complexity Diagnoses Symptomatic anemia D64.9 Encephalopathy G93.40 Alcohol abuse F10.10 Elevated troponin R79.89 Schizophrenia F20.9 Acute blood loss anemia D62 Iron deficiency anemia D50.9 Acute gastrointestinal bleeding K92.2
[2023-09-18] MEDS: PANTOPRAZOLE BOLUS/DRIP IV STA (13:53)
[2023-09-18] MEDS: PANTOprazole 40 MG in DEXTROSE 5% MINI-B 100 ML IV SCH (13:53)
[2023-09-18 14:52] LABS: Appearance Urine Clear (Clear); Bilirubin Urine Negative (Negative); Blood Urine Negative (Negative); Color Urine Yellow; Glucose Urine UA Negative (Negative); Ketones Urine Negative (Negative); Leukocyte Esterase Urine Negative (Negative); Nitrite Urine Negative (Negative); Protein Urine Negative (Negative); Specific Gravity Urine 1.015 (1.000-1.030); Urobilinogen Urine Negative (Negative); pH Urine 5.5 (4.5-7.5)
[2023-09-18 15:02] LABS: Amphetamines+Metham, Urine Neg (Neg); Barbiturates, Urine Neg (Neg); Benzodiazepine, Urine Neg (Neg); Cocaine, Urine Neg (Neg); MDMA (Ecstacy), Urine Neg (Neg); Marijuana, Urine Neg (Neg); Methadone, Urine Neg (Neg); Opiate, Urine Neg (Neg); Phencyclidine, Urine Neg (Neg)
[2023-09-18] MEDS: FOLIC ACID 1 MG in SYRINGE 9.8 ML IV ONE (15:24)
[2023-09-18] MEDS: LACTATED RINGER'S 1,000 ML IV SCH (15:24)
[2023-09-18] MEDS: NICOTINE 14 MG/24 HR PATCH TD STA (15:25)
--- NOTE | 2023-09-18 15:43 | Gastrointestinal Consultation ---
Date of Consultation September 18, 2023 Assessment & Plan (1) Anemia: Plan Patient presented after seizure with hgb of 4.1, heavy use of nsaids for headaches. patient denies any signs of bleeding but unreliable historian. - monitor hgb/hct and transfuse as needed. he is set up to get 2 units currently. - continue with protonix drip. - will keep NPO at midnight tonight. He may require endoscopy. Supervising Physician Co-Signing Physician Notes Agree with ALFONZO Sheth as above Abd: Soft, NT, ND, +BS Continue current therapy and supportive care Transfuse PRN to maintain H/H >7/21 NPO after midnight Probable EGD in AM History of Present Illness Reason for Consultation: hgb 4.5, likely GI bleed Requesting Physician: Vitor Bullard PA-C Attending Physician: John Paul Bishop MD History of Present Illness Patient is a 43 year old male with history of schizophrenia who presented to the ED via EMS after having a reported seizure at [facility] drinking mountain dew and using chewing tobacco. Upon arrival at the ED, he was found to have a hgb of 4.1 and is ordered to have 2 units of PRBC. He reportedly uses 4-6 advil tablets daily for headaches. reported history of etoh abuse. he denies any black stool or blood in stools. no abdominal pain, nausa, vomiting. Patient an unreliable historian and he has a flight of ideas when obtaining history. urine drug and etoh screen negative. CT abdomen/pelvis 09/17 unremarkable. Allergies Allergy/AdvReac Type Severity Reaction Status Date / Time No Known Allergies Allergy Mild Verified 09/01/23 13:51 Home Medications Medication Instructions Recorded Confirmed Type hydroxyzine HCl 10 mg tablet 10 mg PO DAILY PRN Anxiety 09/18/23 09/18/23 History quetiapine 25 mg tablet See Rx Instructions .Route .COMPLEX 09/18/23 09/18/23 History quetiapine 50 mg tablet See Rx Instructions .Route .COMPLEX 09/18/23 09/18/23 History risperidone 3 mg tablet 0 mg PO QAM 09/18/23 09/18/23 History Patient History Medical History Alcohol dependence Seizure Alcohol abuse Schizophrenia Social History Smoking Status: Unknown if ever smoked Tobacco Type: Smokeless Tobacco (Dip or Chew) Preferred Language: Latvian Current Living Situation: Alone Current Living Situation Comment: Mother lives nearby. current occupational status: disabled Feels Safe at Home: Yes Review of Systems Review of Systems: Unobtainable due to cognitive status Physical Exam Constitutional: WD/WN, vitals as above Respiratory: normal respiratory effort, lungs clear to auscultation Cardiovascular: RRR, no murmur, no edema Gastrointestinal (Abdomen): normal bowel sounds, soft, nontender, no hepatosplenomegaly Psychiatric: Orientation: alert Affect: euthymic affect Results & Data Vital Signs (Past 12 Hours) Vital Signs Temp Pulse Pulse Resp BP BP Pulse Ox 09/18/23 15:30 108 H 09/18/23 14:45 98 H 22 133/79 09/18/23 14:15 99 H 22 145/83 H 99 09/18/23 14:00 98.3 F 105 H 18 148/90 H 98 09/18/23 13:44 98.6 F 105 H 23 141/82 H 100 09/18/23 13:02 105 H 23 151/77 H 98 09/18/23 10:37 98.2 F 120 H 23 111/83 98 O2 Del Method 09/18/23 15:30 09/18/23 14:45 09/18/23 14:15 09/18/23 14:00 09/18/23 13:44 09/18/23 13:02 Room Air 09/18/23 10:37 Room Air Coding Level of Care Code 90369 IN/OBS CONSULT LVL 4,60M Diagnoses Anemia D64.9
[2023-09-18] MEDS: ACETAMINOPHEN 1,000 MG/100 ML VIAL IV STA (15:50)
[2023-09-18] MEDS: THIAMINE HCL 500 MG in SODIUM CHLORIDE 0.9% 50 ML IV STA (16:18)
[2023-09-18] MEDS: POTASSIUM CHLORIDE / WTR 10 MEQ/100 ML PLCT IV SCH (16:36)
[2023-09-18 16:43] LABS: Lactate Dehydrogenase 204 U/L (86-244)
[2023-09-18 16:52] LABS: Iron < 10 mcg/dl (35-175); Unsaturated Iron Binding Cap 395 mcg/dl (155-355)
[2023-09-18 16:59] LABS: Ferritin 22.5 ng/ml (8-388)
[2023-09-18 17:17] LABS: Reticulocyte % 18.98 % (0.50-2.00); Reticulocytes # 0.3 10^6/uL (0.020-0.100)
[2023-09-18 17:19] LABS: Folate (Folic Acid),Ser orPlas > 22.30 ng/ml (>5.38)
[2023-09-18 17:20] LABS: Vitamin B12 369 pg/ml (180-914)
[2023-09-18] MEDS: LORazepam 1 MG in SYRINGE 0.5 ML IV PRN (19:44)
[2023-09-18 20:54] LABS: Base Excess VBG -0.8 mEq/L; HCO3 VBG 24 mmol/L; Oxygen Saturation VBG < 60.0 %; PCO2 VBG 37 mmHg (38-50); PO2 VBG 31 mmHg; pH VBG 7.41 (7.36-7.41)
[2023-09-18 21:54] LABS: Hematocrit (blood only) 16.7 % (42.0-52.0); Hemoglobin 5.4 g/dl (14.0-18.0); Mean Corpuscular Hgb Conc 32.3 g/dL (32.0-36.0); Mean Corpuscular Volume 92.8 fL (80.0-100.0); Mean Platelet Volume 9.5 fL (9.4-12.4); Nucleated RBC # (auto) 0.03 K/uL (0.00-0.12); Nucleated RBC % (auto) 0.4 %; Platelet Count 366 K/uL (130-400); RDW Coefficient of Variation 15.8 % (11.5-14.5); RDW Standard Deviation 52.5 fL (36.4-46.3); White Blood Count 8.55 K/ul (4.8-10.8)
[2023-09-18] MEDS: THIAMINE HCL 500 MG in SODIUM CHLORIDE 0.9% 50 ML IV SCH (22:27)
[2023-09-19 06:35] LABS: INR 1.1 (0.9-1.1); Prothrombin Time 11.8 Seconds (9.0-12.0)
[2023-09-19 06:53] LABS: Hematocrit (blood only) 21.5 % (42.0-52.0); Hemoglobin 7.2 g/dl (14.0-18.0); Mean Corpuscular Hemoglobin 29.5 pg (25.0-34.0); Mean Corpuscular Hgb Conc 33.5 g/dL (32.0-36.0); Mean Corpuscular Volume 88.1 fL (80.0-100.0); Mean Platelet Volume 9.4 fL (9.4-12.4); Nucleated RBC # (auto) 0.04 K/uL (0.00-0.12); Nucleated RBC % (auto) 0.5 %; Platelet Count 338 K/uL (130-400); RDW Standard Deviation 51.3 fL (36.4-46.3); Red Blood Count 2.44 M/uL (4.70-6.10); White Blood Count 8.29 K/ul (4.8-10.8)
[2023-09-19 06:53] LABS: Albumin Globulin Ratio 1.6 (0.9-2); BUN Creatinine Ratio 11.8 (10-20); Bilirubin,Total 0.9 mg/dl (0.2-1.0); Calcium 7.8 mg/dl (8.6-10.3); Creatinine Clr Calc Pharmacy 128.8 ml/min; Est GFR (Non-African American) 105.2 ml/min; Globulin 1.9 gm/dl (2.5-4.0); Magnesium 2.3 mg/dl (1.7-2.4); Potassium 3.4 mmol/L (3.5-5.1); Total Protein 4.9 gm/dl (6.0-8.3)
[2023-09-19] MEDS ORDERED: SODIUM CHLORIDE 0.9% 250 ML IV PRN (07:47)
[2023-09-19] MEDS: NICOTINE 14 MG/24 HR PATCH TD SCH (08:37)
[2023-09-19] MEDS: FOLIC ACID 1 MG in SYRINGE 9.8 ML IV SCH (08:37)
[2023-09-19] MEDS ORDERED: PNEUMOCOCCAL VACCINE (PCV20) 20-VAL CONJ-DIP CRM/PF 0.5 ML SYR IM ONE (09:00)
--- NOTE | 2023-09-19 10:25 | Gastroenterology Progress Note ---
Date of Service September 19, 2023 Assessment & Plan (1) Symptomatic anemia: Plan Discussed case with Dr. Curtis. Since no signs of active GI bleeding and hgb is still significantly low, will continue to monitor the patient and allow him to receive the planned 2 more units of PRBC. - continue with NPO status for now. - follow hgb/hct and transfuse as needed. - continue with PPI drip at this time. Admission and Anticipated Discharge Date Admission Date: September 18, 2023 Supervising Physician Co-Signing Physician Notes Agree with ALFONZO Sheth as above Patient left AMA prior to my evaluation Subjective Patient tells me he feels well though still has a flight of ideas and does not answer questions appropriately. discussed case with nursing, there have been no bowel movements reported since admission. no signs of active GI bleeding. hgb went from 4.1 to 5.4 with 2 units of PRBC. he is currently ordered to have 2 more units given. GI ros is negative but again, pt does not answer questions appropriately so hard to tell if he is being honest. Review of Systems Review of Systems: All systems reviewed & are unremarkable except as noted in HPI & below Physical Exam Constitutional: WD/WN, vitals as above Respiratory: normal respiratory effort, lungs clear to auscultation Cardiovascular: RRR, no murmur, no edema Gastrointestinal (Abdomen): normal bowel sounds, soft, nontender, no hepatosplenomegaly Psychiatric: Orientation: alert Affect: euthymic affect Results & Data Results & Data Vital Signs (Past 12 Hours) Vital Signs Temp Pulse Pulse Resp BP BP Pulse Ox 09/19/23 09:30 98.2 F 75 18 117/64 96 09/19/23 09:00 98.1 F 76 17 130/74 95 09/19/23 08:45 98.6 F 74 18 119/72 94 09/19/23 08:29 98.2 F 79 18 111/65 94 09/19/23 08:06 98.1 F 80 17 150/76 H 94 09/19/23 03:15 98.2 F 85 131/78 09/19/23 03:14 98.2 F 74 20 131/78 96 09/19/23 02:14 97.9 F 75 20 127/83 09/19/23 01:44 73 20 132/86 09/19/23 01:29 97.7 F 87 20 127/77 09/19/23 01:11 97.2 F L 81 20 123/76 09/19/23 00:52 97.9 F 84 20 116/74 09/18/23 23:55 98.1 F 89 16 136/73 100 09/18/23 23:25 97.9 F 90 20 108/63 09/18/23 23:15 85 09/18/23 23:10 98.1 F 91 H 20 134/80 09/18/23 22:54 97.5 F L 92 H 20 127/74 99 O2 Del Method O2 Flow Rate 09/19/23 09:30 0 09/19/23 09:00 0 09/19/23 08:45 0 09/19/23 08:29 0 09/19/23 08:06 Room Air 09/19/23 03:15 09/19/23 03:14 09/19/23 02:14 09/19/23 01:44 09/19/23 01:29 09/19/23 01:11 09/19/23 00:52 09/18/23 23:55 09/18/23 23:25 09/18/23 23:15 09/18/23 23:10 09/18/23 22:54 PG Care Time/CCT Total # of Minutes Spent Total Time Spent with Patient: Total time spent is greater than 50% in coordination of care (as documented) at patient's floor/unit and/or counseling patient: Coding Level of Care Code 02522 SUB INP/OBS CARE 2/35MIN Diagnoses Symptomatic anemia D64.9
[2023-09-19] MEDS: D5NSS + 20MEQ KCL 20 MEQ/1,000 ML BAG IV SCH (10:51)
--- NOTE | 2023-09-19 11:52 | Discharge Summary ---
Date of Service September 19, 2023 Admission HPI Per Admitting Provider Jules is a 43 year old male with a PMH significant for alcohol abuse, schizophrenia, smokeless tobacco abuse who presented to the [facility] ED via EMS on 09/18/23 after possibly syncopal/seizure while standing in line at [facility]. On arrival to the ED he was noted to be hypertensive at 151/77, tachycardic at 120, but otherwise stable. Labs were significant for a leukocytosis of 11 with neutrophil predominance of 9,, hgb of 4.1 (no previous to compare), Hct of 13, MCV of 97, MCHC of 31, platelet count of 524, INR WNL, AG of 18 with Bicarb WNL, sodium of 131, corrected calcium of 8.3, ALT of 64, initial high sen trop of 84, and negative alcohol level. CT of the head was read a s negative for acute findings. Chest xray was read as 1. The pulmonary vasculature appears congested. 2. Airspace opacities are seen at both lung bases. This could represent a component of pulmonary edema versus an infectious/inflammatory. Clinical correlation will be required and radiographic follow-up to resolution is recommended. CT of the abd/pelvis w/con was read as 1. No acute process within the abdomen or pelvis. 2. No bowel obstruction. No bowel wall thickening. Normal appendix.. Prior to admission the patient was given an IV pantoprazole bolus with drip, consented for blood, and ordered 2 units of PRBCs. At the time of the exam the patient was sitting in bed in no acute distress. History is difficult to obtain at this time due to the patient's current mental status. He states he was in [facility], drinking Mountain Dew, and listening to music then woke up here. He uses chewing tobacco, which appears to be the black substance in his teeth/mouth. When asked about any recent pain he states that he has been having headaches. He then mentions he's been using advil for his headaches. Up to 4-6 pills daily. When asked about drinking he states that his last drank alcohol on 09/12. However, he often goes off on nonsensical tangents which do not make sense. He mentions playing the guitar when I ask about abdominal pain. I explained to him that we need to admit him to the Hospital due to very low hemoglobin level and concern for a bleed in his GI tract. I explained that his Hgb is so low, if he does not receive blood he could have catastrophic injury to any organ in his body. I asked him to explain back to me why we were admitting him to the hospital. He states "I need to get blood because I'm fat". At this time I do not think that the patient has proper insight into his serious clinical condition to leave AMA if her were to try. I was able to call and speak with Jules's Mother, Kush Brooks ([phone]) who lives in [place]. She will be coming up later today to see him. She states that she comes to [place] weekly to help care for Sivakumar lozada. Unfortunately he has been mentally Unstable for years. He will go on alcohol binges and uses nicotine but she states he does not use other recreational substances. She last saw him on 09/10 when she came up to take him to some appointments. Please refer to Dr. Bishop's attestation for any changes to the treatment plan Principal Diagnosis Symptomatic anemia, suspected syncope, demand ischemia with elevated troponin Discharge Exam General-alert and oriented x3, no fever, no chills HEENT-head atraumatic and normocephalic, pupils equal and reactive to light, extraocular muscles intact Neck-no lymphadenopathy or thyromegaly, trachea midline Chest-clear to auscultation. No rales, wheezing or rhonchi Cardiac-regular rate and rhythm, normal S1 and S2 Abdomen-normal bowel sounds, nontender, no hepatosplenomegaly Extremities-no cyanosis, clubbing, or edema Neuro-cranial nerves II through XII intact, motor and sensory function within normal limits, strength symmetrical, no focal deficits Psych-normal affect, normal mood Discharge Data Allergies Allergy/AdvReac Type Severity Reaction Status Date / Time No Known Allergies Allergy Mild Verified 09/01/23 13:51 Consultations 09/18/23 14:11 Consult Gastroenterology Routine 09/19/23 06:00 Consult Psychiatry Routine Ordered Studies 09/18/23 11:10 CT head/brain wo con Stat 09/18/23 12:33 CT abd pelvis IV con only Stat Hospital Course (1) Symptomatic anemia: Hemoglobin 4.1 on admission and improved to 7.2 after transfusion. GI consultation noted. The patient left AMA before EGD could be completed (2) Encephalopathy: Difficult to say if the patient has acute metabolic encephalopathy or whether he has bizarre behavior related to his psychiatric disorder and schizophrenia. He has been seen by the psychiatry liaison. No apparent indication for inpatient psychiatry treatment. He then left the hospital AGAINST MEDICAL ADVICE. Head CT scan negative on admission (3) Alcohol abuse: By history. Alcohol cessation recommended. He was given supplemental vitamins while hospitalized (4) Elevated troponin: Suspect demand ischemia. No evidence of acute coronary syndrome. Telemetry. (5) Schizophrenia: Chronic. He was seen by the psychiatry liaison. No apparent indication for inpatient treatment at this time. (6) Iron deficiency anemia: Iron deficiency has been documented. He left AMA before supplemental parenteral iron could be administered Plan The patient left the hospital today, September 18, AGAINST MEDICAL ADVICE Total Time Total Time Spent Total Time Spent (In Minutes): 50-minute Discharge Plan Discharge Items Patient Disposition: Against Medical Advice Reason For Visit: SYMPTOMATIC ANEMIA, SYNCOPAL EPISODE Activity: Resume your previous activity Non-emergency contact: Primary Care Provider Follow-up/Referrals: Cristy Connell, [Primary Care Provider] - Pending Studies at Discharge: No Stand-Alone Forms: [facility], Smoking Cessation Medications and DC Order Prescriptions: Continued quetiapine 25 mg tablet See Rx Instructions .ROUTE .COMPLEX Rx Instructions: Take 25mg w/ 50mg by mouth to equal 75mg once nightly risperidone 3 mg tablet 0 mg PO QAM Rx Instructions: Per pharmacy, last filled 06/2023 x30 day supply. Original Directions: 3mg by mouth once every morning hydroxyzine HCl 10 mg tablet 10 mg PO DAILY PRN (Reason: Anxiety) quetiapine 50 mg tablet See Rx Instructions .ROUTE .COMPLEX Rx Instructions: Take 50mg w/ 25mg by mouth to equal 75mg once nightly Discharge Orders: Left Against Medical Advice (Routine); Ordered 09/19/23 Ordered By: Sunny Diehl Admission Data Admit Date/Time: 09/18/23 13:52 Attending Provider: Sunny Diehl Admit Provider: John Paul Bishop Primary Care Provider: Cristy Connell Other Providers: Josh Curtis; Osiris Carreon; Antonia Mann; Emory Hoang; Lior Braxton Jr; Alisha De Souza; Roxana Salas Coding Level of Care Code 20707 INP/OBS DISCH >30 MIN Diagnoses Symptomatic anemia D64.9 Encephalopathy G93.40 Alcohol abuse F10.10 Elevated troponin R79.89 Schizophrenia F20.9 Iron deficiency anemia D50.9
--- NOTE | 2023-09-19 12:21 | Psychiatric Consultation ---
Date of Consultation September 19, 2023 Impression / Recommendations Impression Patient left AMA before he was able to be seen for psychiatric consult for recommendations for schizophrenia. Psychiatric liason nurse was in the process of meeting the patient when he demanded to leave AMA and refused to participate further in meeting with her limiting the ability to complete a full psychiatric assessment. For this reason the psychiatric liason will be completing a 302 petition and requesting the county issue a warrant and if granted he will be required to come to the hospital for further evaluation to determine if his schizophrenia, if an accurate diagnosis, may be impacting his ability to attend to his medical needs and potentially placing him at risk for , serious bodily injury or serious physical debilitation within the next 30 days. Psych History Allergies Allergy/AdvReac Type Severity Reaction Status Date / Time No Known Allergies Allergy Mild Verified 09/01/23 13:51 Home Medications Medication Instructions Recorded Confirmed Type hydroxyzine HCl 10 mg tablet 10 mg PO DAILY PRN Anxiety 09/18/23 09/18/23 Hi story quetiapine 25 mg tablet See Rx Instructions .Route .COMPLEX 09/18/23 09/18/23 History quetiapine 50 mg tablet See Rx Instructions .Route .COMPLEX 09/18/23 09/18/23 History risperidone 3 mg tablet 0 mg PO QAM 09/18/23 09/18/23 History Patient History Medical History Alcohol dependence Seizure Alcohol abuse Schizophrenia Social History Smoking Status: Current every day smoker Tobacco Type: Cigars and Smokeless Tobacco (Dip or Chew) Second Hand Exposure: No; Do You Dip or Chew Tobacco: Yes; Hx Alcohol Use: Yes Alcohol type: hard liquor Hx Substance Use: No Preferred Language: Japanese Communication Ability: Effective Pin Worker Required: No Beliefs That Will Affect Care: None Current Living Situation: Alone Current Living Situation Comment: Mother lives nearby. current occupational status: disabled Feels Safe at Home: Yes Assistive Devices: None Physical Exam Vital Signs (Past 24 Hours): Last Vital Signs Temp 36.8 C 09/19/23 09:30 Pulse 75 09/19/23 09:30 Resp 18 09/19/23 09:30 BP 117/64 09/19/23 09:30 Pulse Ox 96 09/19/23 09:30 O2 Del Method Room Air 09/19/23 08:06 O2 Flow Rate 0 09/19/23 09:30 Coding Level of Care Code None
[2023-09-19] MEDS ORDERED: ALBUT/IPRATROP 3MG/0.5MG NEB 3 ML VIAL NEB STA (13:53)
--- NOTE | 2023-09-19 14:09 | XRay Report ---
SINGLE VIEW CHEST CLINICAL HISTORY: Dyspnea. FINDINGS: An AP, portable, upright chest radiograph is compared to study dated 09/18/2023. The cardiome diastinal silhouette is top normal for projection. The pulmonary vasculature appears congested. Airsp winston consolidation is seen at both lung bases. There are trace pleural effusions. No pneumothorax is s een. The bony thorax is grossly intact. IMPRESSION: 1. Pulmonary vascular congestion. 2. Small pleural effusions with bibasilar consolidation. Clinical correlation will be required and ra diographic follow-up to resolution is recommended ACT 112: Negative or not required by law. Electronically signed by: Sanjay Kraft M.D. 09/19/2023 2:08 PM
--- NOTE | 2023-09-20 06:55 | Electrocardiogram Report ---
Test Reason : Blood Pressure : / mmHG Vent. Rate : 120 BPM Atrial Rate : 120 BPM P-R Int : 132 ms QRS Dur : 082 ms QT Int : 340 ms P-R-T Axes : 070 063 044 degrees QTc Int : 480 ms Sinus tachycardia Otherwise normal ECG When compared with ECG of 11-JUN-2013 22:08, T wave amplitude has increased in Lateral leads Confirmed by Festus Pelletier ([id number]) on 09/20/2023 6:55:33 AM Referred By: REFERRED SELF Confirmed By:Festus Pelletier
== END 2023-09-19 11:39 | disposition left against medical advice (07) | DRG 377 ==
LOC: ED 10:33 → EDINP 13:52 → SUATTDRO 13:52 → EDINP 15:12 → 4W 20:22
DX: Z79.899 Other long term (current) drug therapy; F17.220 Nicotine dependence, chewing tobacco, uncomplicated; F10.10 Alcohol abuse, uncomplicated; D62 Acute posthemorrhagic anemia; I24.89 Other forms of acute ischemic heart disease; F17.290 Nicotine dependence, other tobacco product, uncomplicated; E51.2 Wernicke's encephalopathy; D72.829 Elevated white blood cell count, unspecified; G93.41 Metabolic encephalopathy; K92.2 Gastrointestinal hemorrhage, unspecified; F25.9 Schizoaffective disorder, unspecified

== ENCOUNTER 2023-09-19 13:43 | Inpatient (IN) ==
--- NOTE | 2023-09-19 13:52 | Emergency Department Note ---
Impression & Plan Anemia, Elevated troponin, Acute gastrointestinal bleeding ED Provider Note NAME: DEWAYNE CALDERON AGE: 43 SEX: M : 1980 ARRIVES VIA: Ambulance INFORMANT: Patient, ED PROVIDER(S): Chuy Ugarte MD CHIEF COMPLAINT: 302, low hemoglobin MEDICAL DECISION MAKING: Patient presented due to concern for 302 and associated recent anemia. Patient was seen in conjunction with the hospital service as the patient reportedly left AMA without having capacity to do so. Patient was subsequently admitted to the medicine service. IV was established and blood work was obtained through the hospitalist orders patient had a white count of 13 with a hemoglobin of 9.2. Platelet count of 428. The patient's kidney function was unremarkable. Troponin is elevated but downtrending. Urinalysis negative for blood or infection. UDS negative. I did speak with Vitor Mahmood PA-C and Dr. Bishop. Patient was admitted. Discussion w/ other healthcare providers: Vitor Bullard PA-C and Dr. Bishop inpatient medicine service Prior /Outside records reviewed: None Differential diagnosis: Infection, dehydration, metabolic abnormality, hypo/hyperglycemia, electrolyte imbalance, anemia, UTI, pneumonia, thyroid dysfunction among others were considered. Diagnostics, as interpreted by me: ECG: None Cardiac monitoring: An order was placed for continuous cardiac monitoring. The monitor shows a rate of 95 with sinus rhythm. Patient was placed on pulse oximetry Medical decision rules: None Imaging studies: None HPI: Patient presents due to concern for being under 302 warrant as the patient reportedly left AMA likely without the capacity to do so. He states that he is anxious and has noted that he has had some tarry stools. He had been admitted the day prior due to concerns for low hemoglobin. The patient does admit to sometimes not sleeping for periods of time and does use tobacco. Patient does have prior history of alcohol use. No falls or trauma. Patient reportedly did receive 4 units of PRBCs for the time of admission yesterday. PAST MEDICAL HISTORY: See Below PAST SURGICAL HISTORY: See Below SOCIAL HISTORY: See Below HOME MEDICATIONS: See Below ALLERGIES: See Below VITALS: See Below PHYSICAL EXAMINATION: GENERAL: NAD, non-toxic. EYE EXAM: Normal conjunctiva. PERRL, no anisocoria and EOM's grossly intact w/o pain. OROPHARYNX: Moist mucus membranes, grossly normal dentition. NECK: Trachea midline, no stridor. LUNGS: Clear to auscultation. Normal chest wall mechanics. HEART: NSR, no MRG. ABDOMEN: Abdomen soft, non-tender, no masses, no rebound or guarding. BACK: No CVA TTP. SKIN: No rashes and no bruising. UPPER EXTREMITIES: Upper extremities are grossly normal. LOWER EXTREMITIES: Grossly normal, no edema. NEURO EXAM: A&O x3, cranial nerves II-XII grossly intact, normal speech, moves all 4 extremities. Psych: Denies SI or HI. Anxious, pressured speech, tangential. Past Med/Surg History Medical History Alcohol dependence Seizure Alcohol abuse Schizophrenia Social History Smoking Status: Current every day smoker Tobacco Type: Cigars and Smokeless Tobacco (Dip or Chew) Second Hand Exposure: No; Do You Dip or Chew Tobacco: Yes; Hx Alcohol Use: Yes Alcohol type: hard liquor Hx Substance Use: No Preferred Language: Hungarian Communication Ability: Effective Joinery Patternmaker Required: Voice Beliefs That Will Affect Care: None Current Living Situation: Alone Current Living Situation Comment: Mother lives nearby. current occupational status: disabled Feels Safe at Home: Declines to Answer Assistive Devices: None Allergies Allergies Allergy/AdvReac Type Severity Reaction Status Date / Time No Known Allergies Allergy Mild Verified 09/01/23 13:51 Home Meds Home Medications Medication Instructions Recorded Confirmed hydroxyzine HCl 10 mg tablet 10 mg PO DAILY PRN Anxiety 09/18/23 09/18/23 quetiapine 25 mg tablet See Rx Instructions .Route .COMPLEX 09/18/23 09/18/23 quetiapine 50 mg tablet See Rx Instructions .Route .COMPLEX 09/18/23 09/18/23 risperidone 3 mg tablet 0 mg PO QAM 09/18/23 09/18/23 Results & Data (ED) Home Medications Current Medication List: was personally reviewed by me Laboratory Data Attestation: I reviewed the patient's lab results. 09/22/23 04:29 09/22/23 04:29 Administered Medications Lidocaine (Lidocaine 5% 1 Patch) 1 patch TD HS KELLEN Stop: 10/20/23 22:59 Last Admin: 09/21/23 20:10 Dose: 1 patch Documented By: Admin: 09/20/23 23:00 Dose: 1 patch Documented By: Martha Miscellaneous (Remove Lidoderm Patch) 1 each N/A [facility] Stop: 10/21/23 09:59 Last Admin: 09/22/23 10:16 Dose: 1 each Documented By: Admin: 09/21/23 08:41 Dose: 1 each Documented By: ARA Olanzapine (Olanzapine 5 Mg Tablet) 5 mg PO [facility] Stop: 10/20/23 20:59 Last Admin: 09/21/23 20:10 Dose: 5 mg Documented By: Admin: 09/20/23 21:04 Dose: 5 mg Documented By: GLORIA Pantoprazole Sodium (Pantoprazole 40 Mg Tab) 40 mg PO BID [facility] Stop: 10/19/23 20:59 Last Admin: 09/22/23 07:36 Dose: 40 mg Documented By: Admin: 09/21/23 20:09 Dose: 40 mg Documented By: Admin: 09/21/23 08:39 Dose: 40 mg Documented By: Admin: 09/20/23 21:04 Dose: 40 mg Documented By: Admin: 09/20/23 08:14 Dose: 40 mg Documented By: Admin: 09/19/23 22:03 Dose: 40 mg Documented By: KYMBERLY Thiamine HCl (Thiamine Hcl 100 Mg Tab) 500 mg PO [facility] Stop: 10/20/23 08:59 Last Admin: 09/22/23 07:36 Dose: 500 mg Documented By: Admin: 09/21/23 08:39 Dose: 500 mg Documented By: Admin: 09/20/23 08:14 Dose: 500 mg Documented By: HUGO Discontinued Medications Acetaminophen (Acetaminophen 325 Mg Tab) 650 mg PO NOW ONE Stop: 09/20/23 17:21 Last Admin: 09/20/23 17:28 Dose: 650 mg Documented By: NICOLETTE Albuterol (Albut/Ipratrop 3mg/0.5mg Neb 3 Ml Vial) 3 ml NEB NOW STA; Protocol Stop: 09/19/23 13:57 Last Admin: 09/19/23 14:14 Dose: 3 ml Documented By: AKIRA Pantoprazole Sodium 40 mg/ (Syringe) 10 mls @ 5 mls/min IV BID [facility] Stop: 10/19/23 16:54 Last Admin: 09/19/23 19:20 Dose: Not Given Documented By: KYMBERLY Olanzapine (Olanzapine 10 Mg/2.1 Ml Sdv) 5 mg IM NOW STA Stop: 09/19/23 14:26 Last Admin: 09/19/23 14:43 Dose: 5 mg Documented By: AKIRA Quetiapine Fumarate (Quetiapine Fumarate 25 Mg Tablet) 50 mg PO HS KELLEN Stop: 10/19/23 21:29 Last Admin: 09/19/23 22:03 Dose: 50 mg Documented By: KYMBERLY Risperidone (Risperidone Odt 1mg) 1 mg PO NOW STA Stop: 09/19/23 13:57 Last Admin: 09/19/23 14:27 Dose: Not Given Documented By: AKIRA Discharge Plan Visit Data Chief Complaint: Illness Stated Complaint: MHID, MEDICAL WORK UP ED Provider: Chuy Ugarte Discharge Problem: Anemia, Elevated troponin, Acute gastrointestinal bleeding Patient Disposition: Admitted As Inpatient Discharge Instructions Interventions: ED Discharge Assessment Last Done: 09/19/23 14:51
[2023-09-19] MEDS: ALBUT/IPRATROP 3MG/0.5MG NEB 3 ML VIAL NEB STA (14:14)
--- NOTE | 2023-09-19 14:22 | History & Physical Report ---
Date of Service September 19, 2023 Assessment & Plan (1) Encounter for assessment of decision-making capacity: Plan: -Admit to med/tele -Currently stable but clearly lacks insight into his current medical illness and does not have the capacity to make medical decisions for himself at this time including the decision to leave against medical advice (therefore he cannot leave AMA at the current time) -Patient is currently agitated and refusing to let safely care for him or obtain necessary imaging/labs -Attempted to give the patient ODT Risperdal for his agitation and altered mental state, but he adamantly refuses -For the patient's safety and patient's safety we will have security come to bedside and will give the patient 5 mg IM Zyprexa now -Will continue to use physical and chemical restraints as needed for the safety of the patient and staff -Will call and update his Mother/POA now, when we spoke to her yesterday at the time of initial admission she was in agreement with the use of mechanical and/or chemical restraints if needed for the safety of staff and the patient -Will keep the patient NPO until labs are obtained -Will obtain STAT CBC, CMP, mag, PT/INR, and high sen trop -Will consult Psychiatry as they were involved in his care this am (2) Acute gastrointestinal bleeding: Plan: -Patient was initially admitted to [facility] on 09/18/23 due to a Hgb of 4.5 and high likelihood of GI bleed -Patient states he has been having black stool as of today -Spoke with our blood bank, they believe that the Type screen/cross from yesterday should still be fine to use for today if he requires further transfusions -Will call the patient's mother to obtain another blood consent -Will follow admission labs and plan to transfuse to a Hgb of 8 or high with his elevated high sen trop yesterday (3) Iron deficiency anemia: Plan: -See H&P from 09/18/23 (4) Alcohol abuse: Plan: -Will obtain medical alcohol level and UA with urine drug screen (5) Schizophrenia: Plan: -Continue prn IM/ODT Zyprexa for agitation/aggression -Follow Psychiatry (6) Acute blood loss anemia: Plan The patient was seen with and discussed with Dr. Bishop at the time of the admission History of Present Illness Chief Complaint: Brought in on 302 by EMS Primary Care Provider: Cristy Connell DO Vicente is a 43 year old male with a PMH significant for alcohol abuse, schizophrenia, smokeless tobacco abuse, and admission to [facility] on 09/18/23 for upper GI Bleed who was brought back to the [facility] ED by EMS this afternoon on a 302 after he left the Hospital AMA this am. Please see H&P from 09/18/23 for full details regarding his presentation and initial management yesterday. On arrival to the ED this afternoon he was noted to be tachycardic at 100 BPM, mildly hypotensive at 108/59, but otherwise stable. On exam the patient is anxious and with pressured speech. Before I can re-introduce myself he immediately starts saying "the tar in my stool is coming from my spine because of the cigars I smoke". When I asked why he left the hospital earlier today he states, "I couldn't stand the IV anymore, I in my hospital room'. He then tells me "if I don't get more blood I'm going to ". He states he is having difficulty breathing from his cigars, when asked, he denies recently smoking, recent alcohol use, and recent drug use. We clearly again explained that his stool is black due to his GI bleed causing digested blood to look black but he refuses to believe this. He tells me multiple times again "I'm inside". We asked him to explain to us what we are particularly concerned about with his current condition. He looked at the window and states "I'm not worried about that window". Patient received a total of 4 units PRBC's from the time of admission yesterday. His mother who is his legal guardian was involved with his care yesterday and was acutely concerned for the sharp decline in his mental health along with his acute medical issues. Please refer to Dr. Bishop's attestation for any changes to the treatment plan Allergies Allergy/AdvReac Type Severity Reaction Status Date / Time No Known Allergies Allergy Mild Verified 09/01/23 13:51 Home Medications Medication Instructions Recorded Confirmed Type hydroxyzine HCl 10 mg tablet 10 mg PO DAILY PRN Anxiety 09/18/23 09/18/23 History quetiapine 25 mg tablet See Rx Instructions .Route .COMPLEX 09/18/23 09/18/23 History quetiapine 50 mg tablet See Rx Instructions .Route .COMPLEX 09/18/23 09/18/23 History risperidone 3 mg tablet 0 mg PO QAM 09/18/23 09/18/23 History Past Med/Surg History Medical History Alcohol dependence Seizure Alcohol abuse Schizophrenia Social History Smoking Status: Current every day smoker Tobacco Type: Cigars and Smokeless Tobacco (Dip or Chew) Second Hand Exposure: No; Do You Dip or Chew Tobacco: Yes; Hx Alcohol Use: Yes Alcohol type: hard liquor Hx Substance Use: No Preferred Language: Honduran Communication Ability: Effective Insurance Claims Examiner Required: Voice Beliefs That Will Affect Care: None Current Living Situation: Alone Current Living Situation Comment: Mother lives nearby. current occupational status: disabled Other Information That Helps Us Care for You: No Feels Safe at Home: Declines to Answer Safety Concerns: Feels Safe At This Time Assistive Devices: None Physical Exam Physical Exam: Physical Exam: General: Agitated, stated age, very poor hygiene, non-toxic appearing HEENT: Normocephalic, atraumatic, no scleral icterus, pupils around round, symmetrical, and reactive to light, dry mucus membranes, trachea midline, no thyromegaly Chest/Pulm: No respiratory distress, symmetrical chest expansion, scattered expiratory wheezing Cardiac: tachycardic rate, regular rhythm, no murmurs noted Abdomen: Negative for ascites and bruising, normoactive bowel sounds, soft, non-tender to palpation throughout Musculoskeletal: Symmetrical and without signs of acute trauma, upper and lower extremities with full ROM, no atrophy, spasticity, or flaccidity Extremities: Radial, dorsalis pedis, and posterior tibial pulses are intact and symmetrical, no edema noted in the BL LE's Skin: Warm, dry, no rashes , lesions, or scars noted Neuro: Alert and oriented to person, place, and location, no focal defects, no tremors noted Psych: While patient is alert and answers most orientation questions appropriately, he continues to have a lack of insight into his acute medical issues, is unable to tell us the risks of not receiving treatment, and is unable to explain to us the reasons we are concerned for his health >Patient has told myself and several other staff members that he is " inside" and that he in his room earlier today prior to leaving AMA Code Status & VTE Plan Code Status Full code Supervising Physician Co-Signing Physician Notes I personally saw and examined the patient. I verified all avila points and agree with Vitor Bullard PA-C with the following exceptions and/or additions: 43 year old discharged against medical advice earlier today with suspected acute GI bleed, acute blood loss anemia, iron def. anemia and syncopal event with seizure activity. The patient tells me he left to go home to eat a sandwich as this would make everything better. He has flight of ideas. He notes tarry stool which he feels is in his spine and also his muscles. He does not think he has a GI bleed as he is very healthy and lives a healthy lifestyle. He also told me he went home and and this is the reason he cannot have an intravenous line in place as he would again. He is unable to understand or retain the information and relay back to me, my concerns of why he should stay in the hospital for active treatment. Patient's are allowed to have bizarre associations, beliefs and make poor medical choices as long as they demonstrate they are able to understand and retain what a healthcare provider is telling them to weigh up and make an informed decision. Currently, he is clearly unable to retain or understand information I am giving him at the time of admission therefore he lacks medical capacity to make his own medical decisions (including leaving hospital against medical advice) at the current time. His reasoning for his problems are also clearly delusional also evidence he lacks reasoning ability and unable to weight up information adequately. Although he is orientated x3 this plays no part of a capacity assessment. His mother is default power of attorney lawyer (reportedly his father is no longer involved in his life and he is not or has any children) and has expressed wish to have him actively treated. Irregardless he now has a [address] to treat his psychiatric conditions and cannot leave hospital for this reason. Practically however we must weigh up the benefits of sedating him to obtain and IV line for IV medications, hydration vs risk of increased agitation and risk to staff. Given his Hgb has risen as expected following 4.5 units of blood I suspect his bleed is mostly chronic and although is not "optimal" medical care will treat with oral medications and place on clear liquids diet at this time. Will also limit labs to once daily as long as he is hemodynamically stable. He will also not willingly get an EGD therefore risk outweighs benefit for this. O/E A&Ox3, HS RRR, no murmurs, Chest CTAB, Abdo SNT A/P Acute blood loss anemia, iron def. anemia, Acute GI bleed - pantoprazole 40mg PO BID, repeat CBC in AM Schizoaffective disorder - continue seroquel HS. Will defer restarting risperidone to psychiatry. Alcohol abuse - thiamine 500mg PO daily PG Care Time/CCT Total # of Minutes Spent Total Time Spent with Patient: Total time spent is greater than 50% in coordination of care (as documented) at patient's floor/unit and/or counseling patient: [place] [address] INT INP/OBS CARE 3/75MIN Patient Type Established Medical Decision Making High Complexity Diagnoses Encounter for assessment of decision-making capacity Z00.8 Acute gastrointestinal bleeding K92.2 Iron deficiency anemia D50.9 Alcohol abuse F10.10 Schizophrenia F20.9 Acute blood loss anemia D62
[2023-09-19] MEDS: OLANZapine 10 MG/2.1 ML SDV IM STA (14:43)
[2023-09-19 15:50] LABS: Appearance Urine Clear (Clear); Bilirubin Urine Negative (Negative); Blood Urine Negative (Negative); Color Urine Yellow; Glucose Urine UA Negative (Negative); Ketones Urine Negative (Negative); Leukocyte Esterase Urine Negative (Negative); Nitrite Urine Negative (Negative); Protein Urine Negative (Negative); Specific Gravity Urine 1.007 (1.000-1.030); Urobilinogen Urine Positive (Negative); pH Urine 6.5 (4.5-7.5)
[2023-09-19 16:11] LABS: Basophils # (auto) 0.03 K/uL (0.00-0.20); Basophils % (auto) 0.2 %; Hematocrit (blood only) 27.9 % (42.0-52.0); Hemoglobin 9.2 g/dl (14.0-18.0); Immature Granulocytes # (auto) 0.05 K/uL (0.01-0.20); Immature Granulocytes % (auto) 0.4 %; Lymphocytes # (auto) 0.59 K/uL (1.20-3.40); Lymphocytes % (auto) 4.3 %; Mean Corpuscular Hemoglobin 29.8 pg (25.0-34.0); Mean Corpuscular Volume 90.3 fL (80.0-100.0); Mean Platelet Volume 9.3 fL (9.4-12.4); Monocytes # (auto) 1.01 K/uL (0.11-0.59); Monocytes % (auto) 7.3 %; Neutrophils # (auto) 12.14 K/uL (1.40-6.50); Neutrophils % (auto) 87.8 %; Nucleated RBC # (auto) 0.02 K/uL (0.00-0.12); Nucleated RBC % (auto) 0.1 %; Platelet Count 428 K/uL (130-400); RDW Coefficient of Variation 16.6 % (11.5-14.5); RDW Standard Deviation 54.2 fL (36.4-46.3); Red Blood Count 3.09 M/uL (4.70-6.10); White Blood Count 13.82 K/ul (4.8-10.8)
[2023-09-19 16:13] LABS: Albumin Level 3.5 gm/dl (3.4-5.0); Anion Gap 9 (3-11); Bilirubin,Total 0.7 mg/dl (0.2-1.0); Calcium 8.3 mg/dl (8.6-10.3); Carbon Dioxide 20 mmol/L (21-32); Chloride 111 mmol/L (98-107); Magnesium 2.3 mg/dl (1.7-2.4); Potassium 3.5 mmol/L (3.5-5.1); Sodium 140 mmol/L (136-145)
[2023-09-19 16:19] LABS: Alanine Aminotransferase 63 U/L (7-52); Albumin Globulin Ratio 1.5 (0.9-2); Alkaline Phosphatase 105 U/L (34-104); Aspartate Aminotransferase 65 U/L (13-39); BUN Creatinine Ratio 10.8 (10-20); Blood Urea Nitrogen 11 mg/dl (6-23); Est GFR (African American) 102.4 ml/min; Est GFR (Non-African American) 88.4 ml/min; Globulin 2.3 gm/dl (2.5-4.0); Glucose 96 mg/dl (70-99(Fasting)); Total Protein 5.8 gm/dl (6.0-8.3)
[2023-09-19 16:31] LABS: Amphetamines+Metham, Urine Neg (Neg); Barbiturates, Urine Neg (Neg); Benzodiazepine, Urine Neg (Neg); Cocaine, Urine Neg (Neg); MDMA (Ecstacy), Urine Neg (Neg); Marijuana, Urine Neg (Neg); Methadone, Urine Neg (Neg); Opiate, Urine Neg (Neg); Phencyclidine, Urine Neg (Neg)
[2023-09-19] MEDS ORDERED: ALBUT/IPRATROP 3MG/0.5MG NEB 3 ML VIAL NEB PRN (19:15)
[2023-09-19] MEDS: PANTOprazole 40 MG in SYRINGE 0 ML IV SCH (19:20)
[2023-09-19] MEDS: QUEtiapine FUMARATE 25 MG TABLET PO SCH (22:03)
[2023-09-19] MEDS: PANTOprazole 40 MG TAB PO SCH (22:03)
[2023-09-20 04:52] LABS: Basophils # (auto) 0.04 K/uL (0.00-0.20); Basophils % (auto) 0.4 %; Eosinophils # (auto) 0.03 K/uL (0.00-0.50); Eosinophils % (auto) 0.3 %; Hematocrit (blood only) 25.1 % (42.0-52.0); Hemoglobin 8.1 g/dl (14.0-18.0); Immature Granulocytes # (auto) 0.04 K/uL (0.01-0.20); Immature Granulocytes % (auto) 0.4 %; Lymphocytes # (auto) 1.31 K/uL (1.20-3.40); Mean Corpuscular Hemoglobin 29.2 pg (25.0-34.0); Mean Corpuscular Hgb Conc 32.3 g/dL (32.0-36.0); Mean Corpuscular Volume 90.6 fL (80.0-100.0); Mean Platelet Volume 9.4 fL (9.4-12.4); Monocytes # (auto) 1.02 K/uL (0.11-0.59); Monocytes % (auto) 10.9 %; Neutrophils # (auto) 6.92 K/uL (1.40-6.50); Platelet Count 384 K/uL (130-400); RDW Coefficient of Variation 16.8 % (11.5-14.5); RDW Standard Deviation 54.6 fL (36.4-46.3); Red Blood Count 2.77 M/uL (4.70-6.10); White Blood Count 9.36 K/ul (4.8-10.8)
[2023-09-20 04:55] LABS: Albumin Globulin Ratio 1.5 (0.9-2); Albumin Level 2.9 gm/dl (3.4-5.0); BUN Creatinine Ratio 9.6 (10-20); Bilirubin,Total 0.6 mg/dl (0.2-1.0); Calcium 7.7 mg/dl (8.6-10.3); Creatinine Clr Calc Pharmacy 115.4 ml/min; Est GFR (Non-African American) 97.5 ml/min; Potassium 3.2 mmol/L (3.5-5.1); Total Protein 4.9 gm/dl (6.0-8.3)
--- NOTE | 2023-09-20 07:14 | Electrocardiogram Report ---
Test Reason : Blood Pressure : / mmHG Vent. Rate : 083 BPM Atrial Rate : 083 BPM P-R Int : 142 ms QRS Dur : 092 ms QT Int : 388 ms P-R-T Axes : 051 034 049 degrees QTc Int : 455 ms Normal sinus rhythm with sinus arrhythmia Normal ECG When compared with ECG of 18-SEP-2023 10:40, No significant change was found Confirmed by Mauricio Fernandez ([id number]) on 09/20/2023 7:13:50 AM Referred By: REFERRED SELF Confirmed By:Mauricio Fernandez
[2023-09-20] MEDS: THIAMINE HCL 100 MG TAB PO SCH (08:14)
--- NOTE | 2023-09-20 13:21 | Psychiatric Consultation ---
Date of Consultation September 20, 2023 Impression / Recommendations Impression Diagnostically consistent with unspecified psychosis-most likely acute exacerbation of schizoaffective disorder with current manic episode. Additionally concerning is that he had a seizure and suspected GI bleed for which he refusing most workups and treatments due to delusions about all his health issues stemming from an old ankle injury and back pain with a belief that both are filled with tar from his cigarette use. Encouragingly he is very motivated to stop using nicotine but has no insight into his other medical issues. Given his presentation consistent with likely manic episode and acute exacerbat ion of psychosis causing delusions leading him to refuse medical care for potentially fatal condition I feel he meets 302 commitment criteria and commitment was completed. The patient is hospitalized on a completed 302 involuntary commitment, which if not extended, will on 09/24/2023 at 1231. This patient must remain on safety precautions with a 1-on-1 and is unable to leave the hospital AMA. He consents to starting olanzapine for management of rufina and psychosis. Agree with continuing to monitor his QTc especially if IM antipsychotics are required for agitation. Agree with hospitalist providers documentation that Jules is lacking decision making capacity for emergent or necessary medical interventions and he continued to show lack of decision making capacity for these medical decisions today. If such interventions are deemed necessary encourage speaking with his mother who is serving as his substitute decision maker. Assessment of Decision-Making Capacity Criterion Patient Task LACKING Communicates a choice Patient is NOT able to clearly indicate preferred treatment option in a clear and consistent manner. DK Understands information provided Patient DOES NOT understand their condition and treatment options. He believes all his issues are due to tar build up in his ankle and back. DK Appreciates consequences He DOES NOT show ap propriately nuanced appreciation for the risks & benefits associated with available treatment options, including no treatment. In fact he cannot describe any risks or benefits as he does not believe he has any medical problems except those associated with his delusional beliefs about tar build up in his ankle and back. DK Manipulates relevant information He CANNOT rationally weigh risks & benefits, rather hears about possibility for GI bleed and immediately becomes focused on jello and nicotine use instead. Overall, I spent a total of 80 minutes with this case including review of chart records, review of labwork, review of EKG QTc, direct evaluation of the patient at bedside, counseling the patient, discussion of the patient with the Nurse and with the hospitalist provider, discussion with the psychiatric liason during clinical rounds, review of collateral historian information from the family, completion of 302 paperwork and documentation in the electronic health record. (1) Schizoaffective disorder: (2) Unspecified psychosis not due to a substance or known physiological condition: (3) Encounter for assessment of decision-making capacity: Plan -On a 302 commitment and requires 1-on-1 -Discontinue Seroquel -Start olanzapine 5mg HS (will start low given recent seizure as all antipsychotics can lower seizure threshold slightly) with additional 5mg po daily prn for psychosis/agitation -For behavioral emergency would use: olanzapine 10mg IM (monitor QTc if required) -He denies recent alcohol use but given history of use would consider passive AWSS Psych History Identifying Data 43 yo man with a history of schizoaffective disorder admitted medically for concern for GI bleed. Psychiatry consulted given 302 warrant and recommendations for schizophrenia and decision making capacity. Chief Complaint "It's just junk in my spine.". History of Present Illness Jules was brought to the hospital yesterday on a 302 warrant, after leaving AMA while being treated for a suspected GI bleed, due to concern for delusions causing him to be at high risk of or permanent disability without medical treatment. Today he seen alongside the hospitalist MD and psychiatric liason RN. Jules was seen & assessed, and his progress was reviewed with the treatment team. He presents with a chief complaint of back pain, which he attributes to smoking cigars. He denies any stomach pain or bleeding but reports having tarry stools twice in the past month. He believes the tarry stools are due to tar from smoking cigars and not indicative of any gastrointestinal bleeding. Jules also reports a history of broken leg, which he self-treated by smoking cigarettes. He admits to consuming alcohol approximately once a month. He reports a poor appetite and infrequent eating habits, which he attributes to his tobacco use. Jules also mentions difficulty sleeping, with a pattern of not sleeping for two or three nights a week since his 30s though agrees he has been awake "all night for days" recently. He disagrees that he could be experiencing rufina but states he is willing to adjust his psychiatric medications. Recently has been taking Seroquel and Vistaril. Took risperidone in the past and per chart review Depakote many years ago. Denies any history of allergic or adverse reactions to psychiatric medications. He is open to trying Zyprexa to help with his appetite, as he views "jello and some food" as the best way to cure his back and ankle issues. He is adamantly opposed to IV placement as he states this will kill him and caused him to during his medical admission from which he left AMA. States it made him feel like he was underground and buried when he received the blood transfusion and he couldn't breath and "I'm , I that day". So believes all he needs now is to eat and leave. He cannot describe any risks of not following the recommended medical interventions nor any benefits. He repeatedly makes statements such as: "I'm full of tar and nicotine." "I don't eat" "What's the matter with me is it's just the tar in my backbone. I'm not bleeding from the stool. It's tar. From the tar. It's tar from my daily smoking." Allergies Allergy/AdvReac Type Severity Reaction Status Date / Time No Known Allergies Allergy Mild Verified 09/01/23 13:51 Home Medications Medication Instructions Recorded Confirmed Type hydroxyzine HCl 10 mg tablet 10 mg PO DAILY PRN Anxiety 09/18/23 09/18/23 History quetiapine 25 mg tablet See Rx Instructions .Route .COMPLEX 09/18/23 09/18/23 History quetiapine 50 mg tablet See Rx Instructions .Route .COMPLEX 09/18/23 09/18/23 History risperidone 3 mg tablet 0 mg PO QAM 09/18/23 09/18/23 History Patient History Medical History Alcohol dependence Seizure Alcohol abuse Schizophrenia Social History Smoking Status: Current every day smoker Tobacco Type: Cigars and Smokeless Tobacco (Dip or Chew) Second Hand Exposure: No; Do You Dip or Chew Tobacco: Yes; Hx Alcohol Use: Yes Alcohol type: hard liquor Hx Substance Use: No Preferred Language: Finnish Communication Ability: Effective Aircraft Pneudraulic Systems Mechanic Required: Voice Beliefs That Will Affect Care: None Current Living Situation: Alone Current Living Situation Comment: Mother lives nearby. current occupational status: disabled Other Information That Helps Us Care for You: No Feels Safe at Home: Declines to Answer Safety Concerns: Feels Safe At This Time Assistive Devices: None Physical Exam Psychiatric: Orientation: alert and oriented x 3 Apperance: appropriately dressed and + disheveled Eye Contact: good eye contact Motor Behavior: no abnormal motor movements Speech: + pressured speech and + loud speech; + abnormal rate/rhythm/volume of speech (fast and difficult to interrupt) Affect: + anxious affect and + irritable affect Mood: + anxious mood and + irritable mood Thought Process: + tangential thought process, + flight of ideas and + looseness of associations Thought Content: + preoccupation, + paranoid and + delusions Suicidal Thoughts: denies suicidal thoughts Homicidal Thoughts: denies homicidal thoughts Hallucinations: no auditory hallucinations and no visual hallucinations Cognition: language grossly intact; + attention not intact Insight: + severely impaired insight Judgment: + severely impaired judgement Vital Signs (Past 24 Hours): Last Vital Signs Temp 36.8 C 09/20/23 10:24 Pulse 90 09/20/23 13:05 Resp 19 09/20/23 13:05 BP 140/71 09/20/23 13:05 Pulse Ox 99 09/20/23 13:05 O2 Del Method Room Air 09/20/23 13:05 Results & Data (PSY) Laboratory Results low K+ Diagnostic Findings QTc 455 ms on 09/19/2023 Medications Administered Pantoprazole Sodium (Pantoprazole 40 Mg Tab) 40 mg PO BID KELLEN Stop: 10/19/23 20:59 Last Admin: 09/20/23 08:14 Dose: 40 mg Documented By: Admin: 09/19/23 22:03 Dose: 40 mg Documented By: KYMBERLY Quetiapine Fumarate (Quetiapine Fumarate 25 Mg Tablet) 50 mg PO HS KLELEN Stop: 10/19/23 21:29 Last Admin: 09/19/23 22:03 Dose: 50 mg Documented By: KYMBERLY Thiamine HCl (Thiamine Hcl 100 Mg Tab) 500 mg PO QAM KELLEN Stop: 10/20/23 08:59 Last Admin: 09/20/23 08:14 Dose: 500 mg Documented By: HUGO Coding Level of Care Code 57912 IN/OBS CONSULT LVL 5,80M Diagnoses Schizoaffective disorder F25.9 Unspecified psychosis not due to a substance or known physiological condition F29 Encounter for assessment of decision-making capacity Z00.8
[2023-09-20 13:34] LABS: Hematocrit (blood only) 25.9 % (42.0-52.0); Hemoglobin 8.6 g/dl (14.0-18.0)
[2023-09-20] MEDS ORDERED: OLANZapine 5 MG TABLET PO PRN (15:05)
[2023-09-20] MEDS: ACETAMINOPHEN 325 MG TAB PO ONE (17:28)
[2023-09-20] MEDS: OLANZapine 5 MG TABLET PO SCH (21:04)
--- NOTE | 2023-09-20 21:34 | Hospitalist Progress Note ---
Date of Service September 20, 2023 Assessment & Plan (1) Encounter for assessment of decision-making capacity: Plan: -Admit to med/tele -Currently stable but clearly lacks insight into his current medical illness and does not have the capacity to make medical decisions for himself at this time including the decision to leave against medical advice (therefore he cannot leave AMA at the current time) -Patient is currently agitated and refusing to let safely care for him or obtain necessary imaging/labs -Attempted to give the patient ODT Risperdal for his agitation and altered mental state, but he adamantly refuses -For the patient's safety and patient's safety we will have security come to bedside and will give the patient 5 mg IM Zyprexa now -Will continue to use physical and chemical restraints as needed for the safety of the patient and staff -Will call and update his Mother/POA now, when we spoke to her yesterday at the time of initial admission she was in agreement with the use of mechanical and/or chemical restraints if needed for the safety of staff and the patient -Will keep the patient NPO until labs are obtained -Will obtain STAT CBC, CMP, mag, PT/INR, and high sen trop -Will consult Psychiatry as they were involved in his care th (2) Acute gastrointestinal bleeding: Plan: -Patient was initially admitted to [facility] on 09/18/23 due to a Hgb of 4.5 and high likelihood of GI bleed -Patient states he has been having black stool as of today -Spoke with our blood bank, they believe that the Type screen/cross from yesterday should still be fine to use for today if he requires further transfusions -Will call the patient's mother to obtain another blood consent -Will follow admission labs and plan to transfuse to a Hgb of 8 or high with his elevated high sen trop yesterday on 09/19 agreeable to upper gi scope but refusing iv access will continue to monitor hemoglobin. if hemoglobin drops may need to put him on restraints. (3) Iron deficiency anemia: Plan: -See H&P from 09/18/23 (4) Alcohol abuse: Plan: -Will obtain medical alcohol level and UA with urine drug screen (5) Schizophrenia: Plan: -Continue prn IM/ODT Zyprexa for agitation/aggression -Follow Psychiatry (6) Acute blood loss anemia: Admission and Anticipated Discharge Date Admission Date: September 19, 2023 Subjective Patient refusing IV access. He states an IV line will kill him. He states he is having dark stools because of the tar from cigarettes. Review of Systems Review of Systems: All systems reviewed & are unremarkable except as noted in HPI & below Physical Exam Physical Exam: General: Agitated, stated age, very poor hygiene, non-toxic appearing not in any distress, not using accesory muscles to breath Results & Data Results & Data Vital Signs (Past 12 Hours) Vital Signs Temp Pulse Pulse Resp BP BP Pulse Ox 09/20/23 21:12 74 18 136/83 94 09/20/23 19:22 72 18 124/81 97 09/20/23 17:28 87 18 137/77 98 09/20/23 13:05 90 19 140/71 99 09/20/23 10:24 36.8 C 69 20 120/63 98 O2 Del Method 09/20/23 21:12 Room Air 09/20/23 19:22 Room Air 09/20/23 17:28 Room Air 09/20/23 13:05 Room Air 09/20/23 10:24 Room Air PG Care Time/CCT Total # of Minutes Spent Total Time Spent with Patient: Total time spent is greater than 50% in coordination of care (as documented) at patient's floor/unit and/or counseling patient: Coding Level of Care Code 76018 SUB INP/OBS CARE 3/50MIN Diagnoses Encounter for assessment of decision-making capacity Z00.8 Acute gastrointestinal bleeding K92.2 Iron deficiency anemia D50.9 Alcohol abuse F10.10 Schizophrenia F20.9 Acute blood loss anemia D62 Time Spent (min) 50
[2023-09-20] MEDS: LIDOCAINE 5% 1 PATCH TD SCH (23:00)
[2023-09-21 06:42] LABS: Basophils # (auto) 0.05 K/uL (0.00-0.20); Basophils % (auto) 0.7 %; Eosinophils # (auto) 0.05 K/uL (0.00-0.50); Eosinophils % (auto) 0.7 %; Hematocrit (blood only) 24.9 % (42.0-52.0); Hemoglobin 8.2 g/dl (14.0-18.0); Immature Granulocytes # (auto) 0.02 K/uL (0.01-0.20); Immature Granulocytes % (auto) 0.3 %; Lymphocytes # (auto) 0.75 K/uL (1.20-3.40); Lymphocytes % (auto) 10.7 %; Mean Corpuscular Hemoglobin 29.3 pg (25.0-34.0); Mean Corpuscular Hgb Conc 32.9 g/dL (32.0-36.0); Mean Corpuscular Volume 88.9 fL (80.0-100.0); Mean Platelet Volume 9.4 fL (9.4-12.4); Monocytes # (auto) 0.72 K/uL (0.11-0.59); Monocytes % (auto) 10.3 %; Neutrophils # (auto) 5.42 K/uL (1.40-6.50); Neutrophils % (auto) 77.3 %; Platelet Count 429 K/uL (130-400); RDW Coefficient of Variation 16.7 % (11.5-14.5); RDW Standard Deviation 54.4 fL (36.4-46.3); White Blood Count 7.01 K/ul (4.8-10.8)
[2023-09-21 06:56] LABS: Albumin Globulin Ratio 1.5 (0.9-2); Albumin Level 2.9 gm/dl (3.4-5.0); BUN Creatinine Ratio 10.7 (10-20); Bilirubin,Total 0.4 mg/dl (0.2-1.0); Calcium 7.8 mg/dl (8.6-10.3); Creatinine Clr Calc Pharmacy 144.6 ml/min; Est GFR (African American) 128.4 ml/min; Est GFR (Non-African American) 110.8 ml/min; Potassium 3.3 mmol/L (3.5-5.1); Total Protein 4.9 gm/dl (6.0-8.3)
--- NOTE | 2023-09-21 10:09 | Gastrointestinal Consultation ---
Date of Consultation September 21, 2023 Assessment & Plan (1) Acute gastrointestinal bleeding: This is a difficult situation. He needs EGD but will refuse. I understand he is not allowed to make his healthcare decisions but he will need IV and EGD and may become violent in his refusal of this. As this is not emergent will not attempt to address this on Friday. Will defer back to Dr. Curtis tomorrow. History of Present Illness Reason for Consultation: gi bleeding Attending Physician: Nithin Herzog History of Present Illness 43 year old man seen by Dr. Curtis last week for bleeding and plans were for EGD. Patient left the hospital AMA and then was readmitted under a 302. Patient tells me that he isn't bleeding and that the black stools are from tobacco abuse. He is not willing to be involved in a consultation or an exam. He also tells me he will refuse EGD saying he will from EGD as he almost from IV. He is still having black stools that are heme (+). H/H are stable. Allergies Allergy/AdvReac Type Severity Reaction Status Date / Time No Known Allergies Allergy Mild Verified 09/01/23 13:51 Home Medications Medication Instructions Recorded Confirmed Type hydroxyzine HCl 10 mg tablet 10 mg PO DAILY PRN Anxiety 09/18/23 09/18/23 History quetiapine 25 mg tablet See Rx Instructions .Route .COMPLEX 09/18/23 09/18/23 History quetiapine 50 mg tablet See Rx Instructions .Route .COMPLEX 09/18/23 09/18/23 History risperidone 3 mg tablet 0 mg PO QAM 09/18/23 09/18/23 History Patient History Medical History Alcohol dependence Seizure Alcohol abuse Schizophrenia Social History Smoking Status: Current every day smoker Tobacco Type: Cigars and Smokeless Tobacco (Dip or Chew) Second Hand Exposure: No; Do You Dip or Chew Tobacco: Yes; Hx Alcohol Use: Yes Alcohol type: hard liquor Hx Substance Use: No Preferred Language: Jamaican Communication Ability: Effective Sort Worker Required: Voice Beliefs That Will Affect Care: None Current Living Situation: Alone Current Living Situation Comment: Mother lives nearby. current occupational status: disabled Feels Safe at Home: Declines to Answer Assistive Devices: None Review of Systems Review of Systems: Unobtainable due to cognitive status Physical Exam Physical Exam: Agitated but looks well Constitutional: WD/WN, vitals as above Results & Data Vital Signs (Past 12 Hours) Vital Signs Temp Pulse Pulse Resp BP Pulse Ox O2 Del Method 09/21/23 08:01 59 L 09/21/23 06:57 36.4 C L 75 16 142/76 H 97 Room Air 09/21/23 02:47 36.7 C 71 17 134/73 95 Room Air Laboratory Results 09/21/23 09/21/23 09/20/23 Range/Units 07:09 06:04 12:55 WBC 7.01 (4.8-10.8) K/ul RBC 2.80 L (4.70-6.10) M/uL Hgb 8.2 L 8.6 L (14.0-18.0) g/dl Hct 24.9 L 25.9 L (42.0-52.0) % MCV 88.9 (80.0-100.0) fL MCH 29.3 (25.0-34.0) pg MCHC 32.9 (32.0-36.0) g/dL RDW Std Deviation 54.4 H (36.4-46.3) fL RDW Coeff of Federico 16.7 H (11.5-14.5) % Plt Count 429 H (130-400) K/uL MPV 9.4 (9.4-12.4) fL Immature Gran % (Auto) 0.3 % Neut % (Auto) 77.3 % Lymph % (Auto) 10.7 % Pine % (Auto) 10.3 % Eos % (Auto) 0.7 % Baso % (Auto) 0.7 % Neut # (Auto) 5.42 (1.40-6.50) K/uL Lymph # (Auto) 0.75 L (1.20-3.40) K/uL Pine # (Auto) 0.72 H (0.11-0.59) K/uL Eos # (Auto) 0.05 (0.00-0.50) K/uL Baso # (Auto) 0.05 (0.00-0.20) K/uL Immature Gran # (Auto) 0.02 (0.01-0.20) K/uL Sodium 140 (136-145) mmol/L Potassium 3.3 L (3.5-5.1) mmol/L Chloride 112 H (98-107) mmol/L Carbon Dioxide 24 (21-32) mmol/L Anion Gap 4 (3-11) BUN 8 (6-23) mg/dl Creatinine 0.75 (0.6-1.4) mg/dl Est Cr Clr Drug Dosing 144.6 ml/min Est GFR ( Amer) 128.4 ml/min Est GFR (Non-Af Amer) 110.8 ml/min BUN/Creatinine Ratio 10.7 (10-20) Glucose 92 (70-99(Fasting)) mg/dl Calcium 7.8 L (8.6-10.3) mg/dl Total Bilirubin 0.4 (0.2-1.0) mg/dl AST 34 (13-39) U/L ALT 41 (7-52) U/L Alkaline Phosphatase 80 (34-104) U/L Total Protein 4.9 L (6.0-8.3) gm/dl Albumin 2.9 L (3.4-5.0) gm/dl Globulin 2.0 L (2.5-4.0) gm/dl Albumin/Globulin Ratio 1.5 (0.9-2) Stool Occult Bld Scrn Positive A (Negative)
--- NOTE | 2023-09-21 11:39 | Psychiatric Progress Note ---
Date of Service September 21, 2023 Impression / Recommendations Impression Diagnostically consistent with unspecified psychosis-most likely acute exacerbation of schizoaffective disorder with current manic episode. Additionally concerning is that he had a seizure and suspected GI bleed for w hich he was refusing most workups and treatments due to delusions about all his health issues stemming from an old ankle injury and back pain with a belief that both are filled with tar from his cigarette use. The patient is hospitalized on a completed 302 involuntary commitment, which if not extended, will on 09/24/2023 at 1231. This patient must remain on safety precautions with a 1-on-1 and is unable to leave the hospital AMA. Overall, I spent a total of 42 minutes with this case, including review of chart, direct evaluation of the patient, coordination with nursing, and documentation. (1) Schizoaffective disorder: Plan -On a 302 commitment and requires 1-on-1 -continue olanzapine trial 5 mg hs. When clearer if will be proceeding with any procedures, would then time switch to an agent such as Invega that can be given IM for MARCIAL (if agreeable), ideally would have [facility] records -Start olanzapine 5mg HS (will start low given recent seizure as all antipsychotics can lower seizure threshold slightly) with additional 5mg po daily prn for psychosis/agitation -For behavioral emergency would use: olanzapine 10mg IM (monitor QTc if required) Interval History Identifying Information 43 yo man with a history of schizoaffective disorder admitted medically for concern for GI bleed. Psychiatry consult completed by Dr. Carreon on 09/20/23 for schizophrenia and decision making capacity. Patient currently on a 302 c ommitment to the medical floor for monitoring of his anemia. Chief Complaint "it's all that tar from the cigarette smoke". Subjective Subjective Patient was seen & assessed and interval progress reviewed with nursing. The patient remains resistant to an IV that would be necessary to proceed with sedation for EGD. He was cooperative with blood work and is taking PO meds as ordered. His Hgb remains low but stable today. He notes improvement in his eating and sleeping. He denies feeling manic. He has not been aggressive, impulsive, etc on medical floor. No signs/sx of alcohol withdrawal. Physical Exam Psychiatric Orientation: alert Apperance: appropriately groomed Eye Contact: good eye contact Motor Behavior: no abnormal motor movements Speech: normal rate/rhythm/volume of speech (fast at times but not pressured) Affect: euthymic affect Mood: no anxious mood Thought Process: + tangential thought process Thought Content: + delusions (somatic) Suicidal Thoughts: denies suicidal thoughts Homicidal Thoughts: denies homicidal thoughts Hallucinations: no auditory hallucinations and no visual hallucinations Cognition: attention grossly intact and language grossly intact Insight: + severely impaired insight Judgment: + severely impaired judgement Vital Signs (Past 24 Hours) Last Vital Signs Temp 36.5 C 09/21/23 11:06 Pulse 64 09/21/23 11:06 Resp 16 09/21/23 11:06 BP 130/88 09/21/23 11:06 Pulse Ox 100 09/21/23 11:06 O2 Del Method Room Air 09/21/23 11:06 Results & Data ([facility]) Laboratory Results Laboratory Results - last 24 hr 09/20/23 09/21/23 09/21/23 12:55 06:04 07:09 WBC 7.01 RBC 2.80 L Hgb 8.6 L 8.2 L Hct 25.9 L 24.9 L MCV 88.9 MCH 29.3 MCHC 32.9 RDW Std Deviation 54.4 H RDW Coeff of Federico 16.7 H Plt Count 429 H MPV 9.4 Immature Gran % (Auto) 0.3 Neut % (Auto) 77.3 Lymph % (Auto) 10.7 Blair % (Auto) 10.3 Eos % (Auto) 0.7 Baso % (Auto) 0.7 Neut # (Auto) 5.42 Lymph # (Auto) 0.75 L Blair # (Auto) 0.72 H Eos # (Auto) 0.05 Baso # (Auto) 0.05 Immature Gran # (Auto) 0.02 Sodium 140 Potassium 3.3 L Chloride 112 H Carbon Dioxide 24 Anion Gap 4 BUN 8 Creatinine 0.75 Est Cr Clr Drug Dosing 144.6 Est GFR ( Amer) 128.4 Est GFR (Non-Af Amer) 110.8 BUN/Creatinine Ratio 10.7 Glucose 92 Calcium 7.8 L Total Bilirubin 0.4 AST 34 ALT 41 Alkaline Phosphatase 80 Total Protein 4.9 L Albumin 2.9 L Globulin 2.0 L Albumin/Globulin Ratio 1.5 Stool Occult Bld Scrn Positive A Current Inpatient Medications Current Inpatient Medications: Current Inpatient Medications Albuterol (Albut/Ipratrop 3mg/0.5mg Neb 3 Ml Vial) 3 ml NEB Q6R PRN; Protocol PRN Reason: Shortness Of Breath Or Wheezing Stop: 10/19/23 19:14 Lidocaine (Lidocaine 5% 1 Patch) 1 patch TD HS [facility] Stop: 10/20/23 22:59 Last Admin: 09/20/23 23:00 Dose: 1 patch Miscellaneous (Remove Lidoderm Patch) 1 each N/A QAM KELLEN Stop: 10/21/23 09:59 Last Admin: 09/21/23 08:41 Dose: 1 each Olanzapine (Olanzapine 5 Mg Tablet) 5 mg PO [facility] Stop: 10/20/23 20:59 Last Admin: 09/20/23 21:04 Dose: 5 mg Olanzapine (Olanzapine 5 Mg Tablet) 5 mg PO QAM PRN PRN Reason: psychosis agitation Stop: 10/21/23 08:59 Pantoprazole Sodium (Pantoprazole 40 Mg Tab) 40 mg PO BID KELLEN Stop: 10/19/23 20:59 Last Admin: 09/21/23 08:39 Dose: 40 mg Thiamine HCl (Thiamine Hcl 100 Mg Tab) 500 mg PO QAM KELLEN Stop: 10/20/23 08:59 Last Admin: 09/21/23 08:39 Dose: 500 mg
--- NOTE | 2023-09-21 20:58 | Hospitalist Progress Note ---
Date of Service September 21, 2023 Assessment & Plan (1) Encounter for assessment of decision-making capacity: Plan: -Admit to med/tele -Currently stable but clearly lacks insight into his current medical illness and does not have the capacity to make medical decisions for himself at this time including the decision to leave against medical advice (therefore he cannot leave AMA at the current time) -Patient is currently 302'd -Patient does not understand that this is a life threatening event. Patient though is stable with a hemoglobin of 8 on oral PPI. (2) Acute gastrointestinal bleeding: Plan: -Patient was initially admitted to [facility] on 09/18/23 due to a Hgb of 4.5 and high likelihood of GI bleed -Patient states he has been having black stool as of today -Spoke with our blood bank, they believe that the Type screen/cross from yesterday should still be fine to use for today if he requires further transfusions -Will call the patient's mother to obtain another blood consent -Will follow admission labs and plan to transfuse to a Hgb of 8 or high with his elevated high sen trop yesterday on 09/19 agreeable to upper gi scope but refusing iv access will continue to monitor hemoglobin. if hemoglobin drops may need to put him on restraints. 09/20 Patient remains stable. Hopefully his bleeding has subsided. will continue to monitor (3) Iron deficiency anemia: Plan: -See H&P from 09/18/23 (4) Alcohol abuse: Plan: -Will obtain medical alcohol level and UA with urine drug screen (5) Schizophrenia: Plan: -Continue prn IM/ODT Zyprexa for agitation/aggression -Follow Psychiatry (6) Acute blood loss anemia: Admission and Anticipated Discharge Date Admission Date: September 19, 2023 Subjective Patient remains adamant that his stools are black from tar from his cigar. and that despite the stool test being positive for blood, he replies that is "the dumbest thing I have ever heard" He refuses IV access Review of Systems Review of Systems: All systems reviewed & are unremarkable except as noted in HPI & below Physical Exam Physical Exam: General: stated age, very poor hygiene, non-toxic appearing not in any distress, not using accesory muscles to breath Results & Data Results & Data Vital Signs (Past 12 Hours) Vital Signs Temp Pulse Pulse Resp BP Pulse Ox O2 Del Method 09/21/23 19:15 36.5 C 70 16 135/83 99 Room Air 09/21/23 16:03 61 09/21/23 15:36 36.6 C 74 16 130/84 97 Room Air 09/21/23 11:06 36.5 C 64 16 130/88 100 Room Air PG Care Time/CCT Total # of Minutes Spent Total Time Spent with Patient: Total time spent is greater than 50% in coordination of care (as documented) at patient's floor/unit and/or counseling patient: Coding Level of Care Code 97297 SUB INP/OBS CARE 2/35MIN Diagnoses Encounter for assessment of decision-making capacity Z00.8 Acute gastrointestinal bleeding K92.2 Iron deficiency anemia D50.9 Alcohol abuse F10.10 Schizophrenia F20.9 Acute blood loss anemia D62
[2023-09-22 05:03] LABS: Basophils # (auto) 0.07 K/uL (0.00-0.20); Basophils % (auto) 1.2 %; Eosinophils % (auto) 1.8 %; Hematocrit (blood only) 26.3 % (42.0-52.0); Hemoglobin 8.2 g/dl (14.0-18.0); Immature Granulocytes # (auto) 0.01 K/uL (0.01-0.20); Immature Granulocytes % (auto) 0.2 %; Lymphocytes # (auto) 1.04 K/uL (1.20-3.40); Lymphocytes % (auto) 18.5 %; Mean Corpuscular Hemoglobin 28.4 pg (25.0-34.0); Mean Corpuscular Hgb Conc 31.2 g/dL (32.0-36.0); Mean Platelet Volume 9.6 fL (9.4-12.4); Monocytes # (auto) 0.69 K/uL (0.11-0.59); Monocytes % (auto) 12.3 %; Platelet Count 448 K/uL (130-400); RDW Standard Deviation 53.2 fL (36.4-46.3); Red Blood Count 2.89 M/uL (4.70-6.10); White Blood Count 5.61 K/ul (4.8-10.8)
[2023-09-22 05:22] LABS: Albumin Globulin Ratio 1.4 (0.9-2); Albumin Level 2.9 gm/dl (3.4-5.0); BUN Creatinine Ratio 6.4 (10-20); Bilirubin,Total 0.4 mg/dl (0.2-1.0); Calcium 7.7 mg/dl (8.6-10.3); Est GFR (African American) 126.3 ml/min; Globulin 2.1 gm/dl (2.5-4.0); Potassium 3.4 mmol/L (3.5-5.1)
--- NOTE | 2023-09-22 12:21 | Gastroenterology Progress Note ---
Date of Service September 22, 2023 Assessment & Plan (1) Anemia: Plan: While patient should have an EGD, situation is complex as he would need an IV. He is agitated and combative at the thought of of an EGD. At present his H/H is stable at 8.2. No overt bleeding. If he develops bleeding and an EGD would become medically emergent, could consider 2 physician consent. Would advise PPI BID. Admission and Anticipated Discharge Date Admission Date: September 19, 2023 Supervising Physician Co-Signing Physician Notes Agree with ALFONZO Gray as above Abd: Soft, NT, ND, +BS Continue current therapy and supportive care No overt GI bleeding Patient refuses EGD now, and no emergent need Subjective Patient is a 43 yo male with anemia, melena. Patient is currently on a 302 admission. He has expressed that he is not wanting to do an EGD. No overt GI bleeding at present. H/H 8.2/26.3. Review of Systems Gastrointestinal: no abdominal pain, no coffee ground emesis, no melena and no problem reported Physical Exam Constitutional: well developed Respiratory: normal respiratory effort Cardiovascular: Rate/Rhythm: regular rate Gastrointestinal (Abdomen): normal bowel sounds, soft, nontender, no h epatosplenomegaly Psychiatric: Orientation: alert and oriented x 3 Results & Data Results & Data Vital Signs (Past 12 Hours) Vital Signs Temp Pulse Pulse Resp BP Pulse Ox O2 Del Method 09/22/23 08:00 55 L 09/22/23 03:30 36.5 C 78 16 139/82 98 Room Air PG Care Time/CCT Total # of Minutes Spent Total Time Spent with Patient: Total time spent is greater than 50% in coordination of care (as documented) at patient's floor/unit and/or counseling patient: Coding Level of Care Code 80457 SUB INP/OBS CARE 2/35MIN Diagnoses Anemia D64.9
--- NOTE | 2023-09-22 13:25 | Psychiatric Progress Note ---
Date of Service September 22, 2023 Impression / Recommendations Impression Diagnostically consistent with unspecified psychosis-most likely acute exacerbation of schizoaffective disorder with current manic episode. Additionally concerning is that he had a seizure and suspected GI bleed for w hich he was refusing most workups and treatments due to delusions about all his health issues stemming from an old ankle injury and back pain with a belief that both are filled with tar from his cigarette use. The patient is hospitalized on a completed 302 involuntary commitment, which if not extended, will on 09/24/2023 at 1231. This patient must remain on safety precautions with a 1-on-1 and is unable to leave the hospital AMA. Overall, I spent a total of 40 minutes with this case, including review of chart, direct evaluation of the patient, coordination with nursing and hospitalist service, and documentation. (1) Schizoaffective disorder: Plan patient to remain on 1-on-1 given 302 status, patient declines switch to agent that can be given as a MARCIAL. Agrees to continue Zyprexa though may want to resume Seroquel at home upon discharge as has supply. Reviewed with patient that I would prefer he restart here if changing. Liaison confirming status with Edilberto (prescriber). Patient continues to refuse EGD, Dr. Herzog to clarify care plan with GI given complexities of case. Interval History Identifying Information 43 yo man with a history of schizoaffective disorder admitted medically for concern for GI bleed. Psychiatry consult completed by Dr. Carreon on 09/20/23 for schizophrenia and decision making capacity. Patient currently on a 302 commitment to the medical floor for monitoring of his psychiatric cond ition/anemia. Chief Complaint "It's just all that tar from my lungs working it's way through my body." Subjective Subjective Patient was seen & assessed and interval progress reviewed with nursing and Dr. Herzog. No agitation or significant impulsivity reported on medical floor. He is taking Zyprexa as prescribed. He continues to deny need for EGD given lack of insight into his condition. Dr. Herzog reinforces need for ongoing monitoring as unclear he will be compliant with avoiding NSAIDs after discharge or taking PO psych meds. There is significant concern for UGI bleed with risk of breakthrough bleeding on PPI. The liaison spoke with patient's CM after visited patient here at hospital. CM does not report same changes noted by mother in past 2 months. CM indicated he has limited insight into condition at baseline but seemed more than typical, though MS otherwise same. Physical Exam Psychiatric Orientation: alert Apperance: appropriately groomed Eye Contact: good eye contact Motor Behavior: no abnormal motor movements Speech: no pressured speech Affect: euthymic affect Mood: no anxious mood and no irritable mood Thought Process: + concrete thought process Thought Content: + preoccupation Suicidal Thoughts: denies suicidal thoughts Homicidal Thoughts: denies homicidal thoughts Hallucinations: no auditory hallucinations and no visual hallucinations Cognition: attention grossly intact and language grossly intact Insight: + severely impaired insight Judgment: + severely impaired judgement Vital Signs (Past 24 Hours) Last Vital Signs Temp 36.5 C 09/22/23 03:30 Pulse 55 L 09/22/23 08:00 Resp 16 09/22/23 03:30 BP 139/82 09/22/23 03:30 Pulse Ox 98 09/22/23 03:30 O2 Del Method Room Air 09/22/23 03:30 Results & Data ([facility]) Laboratory Results Laboratory Results - last 24 hr 09/22/23 04:29 WBC 5.61 RBC 2.89 L Hgb 8.2 L Hct 26.3 L MCV 91.0 MCH 28.4 MCHC 31.2 L RDW Std Deviation 53.2 H RDW Coeff of Federico 16.0 H Plt Count 448 H MPV 9.6 Immature Gran % (Auto) 0.2 Neut % (Auto) 66.0 Lymph % (Auto) 18.5 Franklin % (Auto) 12.3 Eos % (Auto) 1.8 Baso % (Auto) 1.2 Neut # (Auto) 3.70 Lymph # (Auto) 1.04 L Franklin # (Auto) 0.69 H Eos # (Auto) 0.10 Baso # (Auto) 0.07 Immature Gran # (Auto) 0.01 Sodium 139 Potassium 3.4 L Chloride 114 H Carbon Dioxide 24 Anion Gap 1 L BUN 5 L Creatinine 0.78 Est Cr Clr Drug Dosing 139.0 Est GFR ( Amer) 126.3 Est GFR (Non-Af Amer) 109.0 BUN/Creatinine Ratio 6.4 L Glucose 91 Calcium 7.7 L Total Bilirubin 0.4 AST 37 ALT 38 Alkaline Phosphatase 73 Total Protein 5.0 L Albumin 2.9 L Globulin 2.1 L Albumin/Globulin Ratio 1.4 Current Inpatient Medications Current Inpatient Medications: Current Inpatient Medications Acetaminophen (Acetaminophen 325 Mg Tab) 650 mg PO Q4H PRN PRN Reason: Pain or Fever Stop: 10/22/23 06:31 Albuterol (Albut/Ipratrop 3mg/0.5mg Neb 3 Ml Vial) 3 ml NEB Q6R PRN; Protocol PRN Reason: Shortness Of Breath Or Wheezing Stop: 10/19/23 19:14 Lidocaine (Lidocaine 5% 1 Patch) 1 patch TD [facility] Stop: 10/20/23 22:59 Last Admin: 09/21/23 20:10 Dose: 1 patch Miscellaneous (Remove Lidoderm Patch) 1 each N/A QAM [facility] Stop: 10/21/23 09:59 Last Admin: 09/22/23 10:16 Dose: 1 each Olanzapine (Olanzapine 5 Mg Tablet) 5 mg PO [facility] Stop: 10/20/23 20:59 Last Admin: 09/21/23 20:10 Dose: 5 mg Olanzapine (Olanzapine 5 Mg Tablet) 5 mg PO QAM PRN PRN Reason: psychosis agitation Stop: 10/21/23 08:59 Pantoprazole Sodium (Pantoprazole 40 Mg Tab) 40 mg PO BID KELLEN Stop: 10/19/23 20:59 Last Admin: 09/22/23 07:36 Dose: 40 mg Thiamine HCl (Thiamine Hcl 100 Mg Tab) 500 mg PO QAM KELLEN Stop: 10/20/23 08:59 Last Admin: 09/22/23 07:36 Dose: 500 mg
--- NOTE | 2023-09-22 22:42 | Hospitalist Progress Note ---
Date of Service September 22, 2023 Assessment & Plan (1) Encounter for assessment of decision-making capacity: Plan: -Admit to med/tele -Currently stable but clearly lacks insight into his current medical illness and does not have the capacity to make medical decisions for himself at this time including the decision to leave against medical advice (therefore he cannot leave AMA at the current time) -Patient is currently 302'd -Patient does not understand that this is a life threatening event. Patient though is stable with a hemoglobin of 8 on oral PPI. Patient is medically stable as his hemoglobin has been stable. HOwever this is in the context that he is not taking any NSAIDs and is taking his PPI. Patient reports he will not continue taking his PPI at discharge. Patient is unable to explain why a PPI will cause him harm. Despite multiple discussions with patient, he continues to believe this is due to smoking and that he does not have a GI bleed. Will defer to psychiatry if patient has capacity and if this is considered self harm by notn taking a PPI which can prevent a life threatening event. (2) Acute gastrointestinal bleeding: Plan: -Patient was initially admitted to [facility] on 09/18/23 due to a Hgb of 4.5 and high likelihood of GI bleed -Patient states he has been having black stool as of today -Spoke with our blood bank, they believe that the Type screen/cross from yesterday should still be fine to use for today if he requires further transfusions -Will call the patient's mother to obtain another blood consent -Will follow admission labs and plan to transfuse to a Hgb of 8 or high with his elevated high sen trop yesterday on 09/19 agreeable to upper gi scope but refusing iv access will continue to monitor hemoglobin. if hemoglobin drops may need to put him on restraints. 09/20 Patient remains stable. Hopefully his bleeding has subsided. will continue to monitor 09/21 hemgolbin is stable (3) Iron deficiency anemia: Plan: -See H&P from 09/18/23 (4) Alcohol abuse: Plan: -Will obtain medical alcohol level and UA with urine drug screen (5) Schizophrenia: Plan: -Continue prn IM/ODT Zyprexa for agitation/aggression -Follow Psychiatry (6) Acute blood loss anemia: Admission and Anticipated Discharge Date Admission Date: September 19, 2023 Subjective 43 yo male reports that he still believes he does not need to be on a PPI. He reports this medication is not needed to clear the =tar from his stomach. He needs to quit smoking. He refutes the idea that this is from a GI bleed. However, he is agreeable to withholding NSAIDs and using tylenol instead. Review of Systems Review of Systems: All systems reviewed & are unremarkable except as noted in HPI & below Physical Exam Physical Exam: General: stated age, very poor hygiene, non-toxic appearing not in any distress, not using accesory muscles to breath Results & Data Results & Data Vital Signs (Past 12 Hours) Vital Signs Temp Pulse Pulse Resp BP Pulse Ox O2 Del Method 09/22/23 16:04 60 09/22/23 15:47 36.4 C L 70 18 142/87 H 97 Room Air PG Care Time/CCT Total # of Minutes Spent Total Time Spent with Patient: Total time spent is greater than 50% in coordination of care (as documented) at patient's floor/unit and/or counseling patient: Coding Level of Care Code 86849 SUB INP/OBS CARE 3/50MIN Diagnoses Encounter for assessment of decision-making capacity Z00.8 Acute gastrointestinal bleeding K92.2 Iron deficiency anemia D50.9 Alcohol abuse F10.10 Schizophrenia F20.9 Acute blood loss anemia D62 Time Spent (min) 50
[2023-09-23] MEDS: ACETAMINOPHEN 325 MG TAB PO PRN (01:12)
[2023-09-23 04:38] LABS: Hematocrit (blood only) 27.2 % (42.0-52.0); Hemoglobin 8.9 g/dl (14.0-18.0); Mean Corpuscular Hgb Conc 32.7 g/dL (32.0-36.0); Mean Corpuscular Volume 88.6 fL (80.0-100.0); Mean Platelet Volume 9.5 fL (9.4-12.4); Platelet Count 509 K/uL (130-400); RDW Coefficient of Variation 15.9 % (11.5-14.5); RDW Standard Deviation 51.2 fL (36.4-46.3); Red Blood Count 3.07 M/uL (4.70-6.10); White Blood Count 5.75 K/ul (4.8-10.8)
[2023-09-23 04:48] LABS: BUN Creatinine Ratio 4.7 (10-20); Creatinine Clr Calc Pharmacy 127.6 ml/min; Est GFR (Non-African American) 105.2 ml/min; Potassium 3.6 mmol/L (3.5-5.1)
[2023-09-23] MEDS ORDERED: OLANZapine 5 MG TABLET PO PRN (11:31)
--- NOTE | 2023-09-23 12:05 | Psychiatric Progress Note ---
Date of Service September 23, 2023 Impression / Recommendations Impression Diagnostically consistent with unspecified psychosis-most likely acute exacerbation of schizoaffective disorder with current manic episode. Additionally concerning is that he had a seizure and suspected GI bleed for w hich he was refusing most workups and treatments due to delusions about all his health issues stemming from an old ankle injury and back pain with a belief that both are filled with tar from his cigarette use. The patient is hospitalized on a completed 302 involuntary commitment, which if not extended, will on 09/24/2023 at 1231. This patient must remain on safety precautions with a 1-on-1 and is unable to leave the hospital AMA. Overall, I spent a total of 52 minutes with this case, including review of chart, direct evaluation of the patient, coordination with nursing and hospitalist service, completion of 303 paperwork and documentation. (1) Schizoaffective disorder: Plan the patient is not able to care for his life threatening medical condition at this time due to his psychotic illness. He has been deemed by multiple doctors to not have the capacity to make his own medical decisions and requires additional time in a monitored setting with antipsychotic medication to hopefully decrease delusions around food and the cause of his anemia and restore some degree of insight into his condition as information that is available from his mother is that he has been declining and per his CM he is not totally baseline. He exhibiting variable symptoms in the hospital and although his hgb is stable, the hospitalist team does not feel he is stable for discharge even to a monitored setting given risk of recurrent bleed and poor compliance with recs. will change Zyprexa prn to q6 hr prn rather than just qam and offer higher standing dose this hs. Interval History Identifying Information 43 yo man with a history of schizoaffective disorder admitted medically for concern for GI bleed. Psychiatry consult completed by Dr. Carreon on 09/20/23 for schizophrenia and decision making capacity. Patient currently on a 302 commitment to the medical floor for monitoring of his psychiatric condition/anemia. Chief Complaint "I never eat as that causes cancer." Subjective Subjective Patient was seen & assessed and interval progress reviewed with nursing and Dr. Herzog. Patient seems more disorganized today, mainly as pressed on his beliefs around cause of his illness and belief that he requires more extended hospitalization. Although there is no evidence of ongoing bleed, Hgb stable but low. He continues to refuse IV or EGD. He is taking some clears but states that he will not eat outside of the hospital. He then rambles about length of time he was homeless. Although he has not been agitated/disruptive to this point on med floor, aide today states he's been talking to himself all through the am. He is not able to engage in meaningful discussion about his self care upon discharge and refusing for us to contact his mother who is closest relative and potential surrogate decision maker. He is taking Zyprexa PO and will be offered additional prn. Physical Exam Psychiatric Orientation: alert Apperance: appropriately groomed Eye Contact: good eye contact Motor Behavior: no abnormal motor movements Speech: + loud speech and normal rate/rhythm/volume of speech (fast at times but not pressured) Affect: + anxious affect and + irritable affect Mood: + irritable mood Thought Process: + tangential thought process and + concrete thought process Thought Content: + delusions (somatic) Suicidal Thoughts: denies suicidal thoughts Homicidal Thoughts: denies homicidal thoughts Hallucinations: no auditory hallucinations and no visual hallucinations Cognition: language grossly intact; + attention not intact Insight: + severely impaired insight Judgment: + severely impaired judgement Vital Signs (Past 24 Hours) Last Vital Signs Temp 36.4 C L 09/23/23 07:40 Pulse 49 L 09/23/23 08:33 Resp 18 09/23/23 07:40 BP 151/83 H 09/23/23 07:40 Pulse Ox 96 09/23/23 07:40 O2 Del Method Room Air 09/23/23 07:40 Results & Data ([facility]) Laboratory Results Laboratory Results - last 24 hr 09/23/23 03:40 WBC 5.75 RBC 3.07 L Hgb 8.9 L Hct 27.2 L MCV 88.6 MCH 29.0 MCHC 32.7 RDW Std Deviation 51.2 H RDW Coeff of Federico 15.9 H Plt Count 509 H MPV 9.5 Sodium 141 Potassium 3.6 Chloride 111 H Carbon Dioxide 25 Anion Gap 5 BUN 4 L Creatinine 0.85 Est Cr Clr Drug Dosing 127.6 Est GFR ( Amer) 122.0 Est GFR (Non-Af Amer) 105.2 BUN/Creatinine Ratio 4.7 L Glucose 88 Calcium 8.0 L Current Inpatient Medications Current Inpatient Medications: Current Inpatient Medications Acetaminophen (Acetaminophen 325 Mg Tab) 650 mg PO Q4H PRN PRN Reason: Pain or Fever Stop: 10/22/23 06:31 Last Admin: 09/23/23 11:01 Dose: 650 mg Albuterol (Albut/Ipratrop 3mg/0.5mg Neb 3 Ml Vial) 3 ml NEB Q6R PRN; Protocol PRN Reason: Shortness Of Breath Or Wheezing Stop: 10/19/23 19:14 Lidocaine (Lidocaine 5% 1 Patch) 1 patch TD [facility] Stop: 10/20/23 22:59 Last Admin: 09/22/23 20:11 Dose: 1 patch Miscellaneous (Remove Lidoderm Patch) 1 each N/A QAM [facility] Stop: 10/21/23 09:59 Last Admin: 09/23/23 07:32 Dose: 1 each Olanzapine (Olanzapine 5 Mg Tablet) 5 mg PO Q6 PRN PRN Reason: psychosis agitation Stop: 10/20/23 15:04 Olanzapine (Olanzapine 10 Mg Tab) 10 mg PO [facility] Stop: 10/23/23 20:59 Pantoprazole Sodium (Pantoprazole 40 Mg Tab) 40 mg PO BID [facility] Stop: 10/19/23 20:59 Last Admin: 09/23/23 07:31 Dose: 40 mg Thiamine HCl (Thiamine Hcl 100 Mg Tab) [facility]: 10/20/23 08:59 Last Admin: 09/23/23 07:32 Dose: 500 mg
[2023-09-23] MEDS: OLANZapine 10 MG TAB PO SCH (20:45)
--- NOTE | 2023-09-23 22:28 | Hospitalist Progress Note ---
Date of Service September 23, 2023 Assessment & Plan (1) Encounter for assessment of decision-making capacity: Plan: -Admit to med/tele -Currently stable but clearly lacks insight into his current medical illness and does not have the capacity to make medical decisions for himself at this time including the decision to leave against medical advice (therefore he cannot leave AMA at the current time) -Patient is currently 302'd -Patient does not understand that this is a life threatening event. Patient though is stable with a hemoglobin of 8 on oral PPI. Patient is medically stable as his hemoglobin has been stable. HOwever this is in the context that he is not taking any NSAIDs and is taking his PPI. Patient reports he will not continue taking his PPI at discharge. Patient is unable to explain why a PPI will cause him harm. Despite multiple discussions with patient, he continues to believe this is due to smoking and that he does not have a GI bleed. Will defer to psychiatry if patient has capacity and if this is considered self harm by not taking a PPI which can prevent a life threatening event. Patient continues to believe his anemia is not a GI bleed. (2) Acute gastrointestinal bleeding: Plan: -Patient was initially admitted to [facility] on 09/18/23 due to a Hgb of 4.5 and high likelihood of GI bleed -Patient states he has been having black stool as of today -Spoke with our blood bank, they believe that the Type screen/cross from yesterday should still be fine to use for today if he requires further transfusions -Will call the patient's mother to obtain another blood consent -Will follow admission labs and plan to transfuse to a Hgb of 8 or high with his elevated high sen trop yesterday on 09/19 agreeable to upper gi scope but refusing iv access will continue to monitor hemoglobin. if hemoglobin drops may need to put him on restraints. 09/20 Patient remains stable. Hopefully his bleeding has subsided. will continue to monitor 09/21-09/22 hemgolbin is stable (3) Iron deficiency anemia: Plan: -See H&P from 09/18/23 (4) Alcohol abuse: Plan: -Will obtain medical alcohol level and UA with urine drug screen (5) Schizophrenia: Plan: -Continue prn IM/ODT Zyprexa for agitation/aggression -Follow Psychiatry (6) Acute blood loss anemia: Admission and Anticipated Discharge Date Admission Date: September 19, 2023 Subjective 43 yo male reports no new symptoms. Review of Systems Review of Systems: All systems reviewed & are unremarkable except as noted in HPI & below Physical Exam Physical Exam: General: stated age, very poor hygiene, non-toxic appearing not in any distress, not using accesory muscles to breath Results & Data Results & Data Vital Signs (Past 12 Hours) Vital Signs Temp Pulse Pulse Resp BP BP Pulse Ox 09/23/23 19:03 36.6 C 71 16 128/76 94 09/23/23 17:07 66 09/23/23 14:49 36.6 C 63 18 155/76 H 94 O2 Del Method 09/23/23 19:03 Room Air 09/23/23 17:07 09/23/23 14:49 Room Air PG Care Time/CCT Total # of Minutes Spent Total Time Spent with Patient: Total time spent is greater than 50% in coordination of care (as documented) at patient's floor/unit and/or counseling patient: Coding Level of Care Code 64882 SUB INP/OBS CARE 2/35MIN Diagnoses Encounter for assessment of decision-making capacity Z00.8 Acute gastrointestinal bleeding K92.2 Iron deficiency anemia D50.9 Alcohol abuse F10.10 Schizophrenia F20.9 Acute blood loss anemia D62
[2023-09-24 04:58] LABS: Hematocrit (blood only) 29.5 % (42.0-52.0); Hemoglobin 9.4 g/dl (14.0-18.0); Mean Corpuscular Hemoglobin 28.3 pg (25.0-34.0); Mean Corpuscular Hgb Conc 31.9 g/dL (32.0-36.0); Mean Corpuscular Volume 88.9 fL (80.0-100.0); Mean Platelet Volume 9.6 fL (9.4-12.4); Platelet Count 566 K/uL (130-400); RDW Coefficient of Variation 15.5 % (11.5-14.5); RDW Standard Deviation 50.6 fL (36.4-46.3); Red Blood Count 3.32 M/uL (4.70-6.10); White Blood Count 5.26 K/ul (4.8-10.8)
[2023-09-24 05:10] LABS: BUN Creatinine Ratio 4.6 (10-20); Calcium 8.4 mg/dl (8.6-10.3); Creatinine Clr Calc Pharmacy 124.7 ml/min; Est GFR (African American) 120.8 ml/min; Est GFR (Non-African American) 104.2 ml/min; Potassium 3.6 mmol/L (3.5-5.1)
[2023-09-24] MEDS ORDERED: FERROUS SULFATE 325 MG/7.4 ML UDP PO ONE (13:32)
--- NOTE | 2023-09-24 15:03 | Psychiatric Progress Note ---
Date of Service September 24, 2023 Impression / Recommendations Impression Diagnostically consistent with unspecified psychosis-most likely acute exacerbation of schizoaffective disorder with current manic episode. Additionally concerning is that he had a seizure and suspected GI bleed for which he was refusing most workups and treatments due to delusions about all his health issues stemming from an old ankle injury and back pain with a belief that both are filled with tar from his cigarette use. 09/24/2023: Participated in 303 hearing with 303 commitment granted due to concern for his inability to meet his medical needs due to ongoing somatic delusions with very limited insight into the need for ongoing medical care and potential follow-up in future for GI bleed. Now medically stable so will plan for inpatient psychiatric admission this afternoon. Overall, I spent a total of 60 minutes with this case, including review of chart, direct evaluation of the patient, coordination with nursing and hospitalist service, participation in 303 commitment hearing and documentation. (1) Schizoaffective disorder: Plan -Continue 1-on-1 -Plan for inpatient psychiatric admission this afternoon pending negative COVID test Interval History Identifying Information 43 yo man with a history of schizoaffective disorder admitted medically for concern for GI bleed. Psychiatry consult completed by Dr. Carreon on 09/20/23 for schizophrenia and decision making capacity. Patient currently on a 302 commitment to the medical floor for monitoring of his psychiatric condition/anemia. Chief Complaint "It's the tar". Subjective Subjective Patient was seen & assessed and interval progress reviewed. Pleasant this morning but remains focused on cogarette use causing tar and no insight into need to take protonix or follow-up with providers for GI bleed. Ongoing beliefs that certain food items such as jello are the only treatment he needs. Physical Exam Psychiatric Orientation: alert Apperance: appropriately groomed Eye Contact: good eye contact Motor Behavior: no abnormal motor movements Speech: + loud speech and normal rate/rhythm/volume of speech (fast at times but not pressured) Affect: euthymic affect Mood: + irritable mood Thought Process: + tangential thought process and + concrete thought process Thought Content: + delusions (somatic) Suicidal Thoughts: denies suicidal thoughts Homicidal Thoughts: denies homicidal thoughts Hallucinations: no auditory hallucinations and no visual hallucinations Cognition: language grossly intact; + attention not intact Insight: + severely impaired insight Judgment: + severely impaired judgement Vital Signs (Past 24 Hours) Last Vital Signs Temp 36.7 C 09/24/23 14:58 Pulse 62 09/24/23 14:58 Resp 18 09/24/23 14:58 BP 116/72 09/24/23 14:58 Pulse Ox 100 09/24/23 14:58 O2 Del Method Room Air 09/24/23 14:58 Results & Data ([facility]) Laboratory Results Laboratory Results - last 24 hr 09/24/23 09/24/23 03:58 Unknown WBC 5.26 RBC 3.32 L Hgb 9.4 L Hct 29.5 L MCV 88.9 MCH 28.3 MCHC 31.9 L RDW Std Deviation 50.6 H RDW Coeff of Federico 15.5 H Plt Count 566 H MPV 9.6 Sodium 143 Potassium 3.6 Chloride 112 H Carbon Dioxide 24 Anion Gap 7 BUN 4 L Creatinine 0.87 Est Cr Clr Drug Dosing 124.7 Est GFR ( Amer) 120.8 Est GFR (Non-Af Amer) 104.2 BUN/Creatinine Ratio 4.6 L Glucose 88 Calcium 8.4 L Iron 11 L TIBC 320 Unsaturated IBC 309 Transferrin % Sat 3 L Ferritin 12.0 SARS-CoV-2 (PCR) Pending Influenza Type A (PCR) Pending Influenza Type B (PCR) Pending RSV (RT-PCR) Pending Current Inpatient Medications Current Inpatient Medications: Current Inpatient Medications Acetaminophen (Acetaminophen 325 Mg Tab) 650 mg PO Q4H PRN PRN Reason: Pain or Fever Stop: 10/22/23 06:31 Last Admin: 09/23/23 11:01 Dose: 650 mg Albuterol (Albut/Ipratrop 3mg/0.5mg Neb 3 Ml Vial) 3 ml NEB Q6R PRN; Protocol PRN Reason: Shortness Of Breath Or Wheezing Stop: 10/19/23 19:14 Ferrous Sulfate (Ferrous Sulfate 325 Mg Tab) 325 mg PO [id number] [facility] Stop: 10/24/23 13:44 Lidocaine (Lidocaine 5% 1 Patch) 1 patch TD HS [facility] Stop: 10/20/23 22:59 Last Admin: 09/23/23 20:46 Dose: 1 patch Miscellaneous (Remove Lidoderm Patch) 1 each N/A QAM [facility] Stop: 10/21/23 09:59 Last Admin: 09/24/23 07:36 Dose: 1 each Olanzapine (Olanzapine 5 Mg Tablet) 5 mg PO Q6 PRN PRN Reason: psychosis agitation Stop: 10/20/23 15:04 Olanzapine (Olanzapine 10 Mg Tab) 10 mg PO HS [facility] Stop: 10/23/23 20:59 Last Admin: 09/23/23 20:45 Dose: 10 mg Pantoprazole Sodium (Pantoprazole 40 Mg Tab) 40 mg PO BID [facility] Stop: 10/19/23 20:59 Last Admin: 09/24/23 07:34 Dose: 40 mg Thiamine HCl (Thiamine Hcl 100 Mg Tab) 500 mg PO QAM [facility] Stop: 10/20/23 08:59 Last Admin: 09/24/23 07:34 Dose: 500 mg
[2023-09-24 15:08] LABS: Influenza A virus by PCR Negative (Neg); Influenza B virus by PCR Negative (Neg); RSV by PCR Negative (Neg); SARS CoV2 RNA(COVID-19) Ceph NEGATIVE (Negative)
[2023-09-24] MEDS: FERROUS SULFATE 325 MG TAB PO SCH (15:34)
--- NOTE | 2023-09-27 22:09 | Discharge Summary ---
Date of Service September 24, 2023 Admission HPI Per Admitting Provider Jules is a 43 year old male with a PMH significant for alcohol abuse, schizophrenia, smokeless tobacco abuse, and admission to [facility] on 09/18/23 for upper GI Bleed who was brought back to the [facility] ED by EMS this afternoon on a 302 after he left the Hospital AMA this am. Please see H&P from 09/18/23 for full details regarding his presentation and initial management yesterday. On arrival to the ED this afternoon he was noted to be tachycardic at 100 BPM, mildly hypotensive at 108/59, but otherwise stable. On exam the patient is anxious and with pressured speech. Before I can re-introduce myself he immediately starts saying "the tar in my stool is coming from my spine because of the cigars I smoke". When I asked why he left the hospital earlier today he states, "I couldn't stand the IV anymore, I in my hospital room'. He then tells me "if I don't get more blood I'm going to ". He states he is having difficulty breathing from his cigars, when asked, he denies recently smoking, recent alcohol use, and recent drug use. We clearly again explained that his stool is black due to his GI bleed causing digested blood to look black but he refuses to believe this. He tells me multiple times again "I'm inside". We asked him to explain to us what we are particularly concerned about with his current condition. He looked at the window and states "I'm not worried about that window". Patient received a total of 4 units PRBC's from the time of admission yesterday. His mother who is his legal guardian was involved with his care yesterday and was acutely concerned for the sharp decline in his mental health along with his acute medical issues. Principal Diagnosis upper GI bleed Discharge Exam General: stated age, very poor hygiene, non-toxic appearing not in any distress, not using accesory muscles to breath Discharge Data Allergies Allergy/AdvReac Type Severity Reaction Status Date / Time No Known Allergies Allergy Mild Verified 09/01/23 13:51 Consultations 09/19/23 14:50 Consult Psychiatry Routine 09/20/23 08:03 Consult Gastroenterology Routine Hospital Course (1) Encounter for assessment of decision-making capacity: -Admit to med/tele -Currently stable but clearly lacks insight into his current medical illness and does not have the capacity to make medical decisions for himself at this time including the decision to leave against medical advice (therefore he cannot leave AMA at the current time) -Patient is currently 302'd -Patient does not understand that this is a life threatening event. Patient though is stable with a hemoglobin of 8 on oral PPI. Patient is medically stable as his hemoglobin has been stable. HOwever this is in the context that he is not taking any NSAIDs and is taking his PPI. Patient reports he will not continue taking his PPI at discharge. Patient is unable to explain why a PPI will cause him harm. Despite multiple discussions with patient, he continues to believe this is due to smoking and that he does not have a GI bleed. Will defer to psychiatry if patient has capacity and if this is considered self harm by not taking a PPI which can prevent a life threatening event. Patient continues to believe his anemia is not a GI bleed. (2) Acute gastrointestinal bleeding: -Patient was initially admitted to [facility] on 09/18/23 due to a Hgb of 4.5 and high likelihood of GI bleed -Patient states he has been having black stool as of today -Spoke with our blood bank, they believe that the Type screen/cross from yesterday should still be fine to use for today if he requires further transfusions -Will call the patient's mother to obtain another blood consent -Will follow admission labs and plan to transfuse to a Hgb of 8 or high with his elevated high sen trop yesterday on 09/19 agreeable to upper gi scope but refusing iv access will continue to monitor hemoglobin. if hemoglobin drops may need to put him on restraints. 09/20 Patient remains stable. Hopefully his bleeding has subsided. will continue to monitor 09/21-09/22 hemgolbin is stable 09/23 will discharge to psych. check daily labs: BUN, creatinine, hemoglobin and hematocrit Consult medicine if either creatinine or BUN become elevated. Consult medicine if hemoglobin is below 8 Continue PPI BID for 4 weeks, then switch to daily. Recommend followup with GI in 4-8 weeks. Recommend followup with PCP in 1-2 weeks post discharge (3) Iron deficiency anemia: -See H&P from 09/18/23 (4) Alcohol abuse: no signs of wiithdrawal (5) Schizophrenia: -Follow Psychiatry (6) Acute blood loss anemia: stable supplement with iron MWF Total Time Total Time Spent Total Time Spent (In Minutes): 32 Discharge Plan Discharge Items Patient Disposition: Transfer [facility] Reason For Visit: CAPACITY EVALUATION, ANEMIA, UPPER GI BLEED Discharge Diagnosis: upper GI bleed Activity: Resume your previous activity Non-emergency contact: Primary Care Provider Call non-emergency contact if: you have any medication questions Follow-up/Referrals: Cristy Connell, [Primary Care Provider] - (please call to schedule follow up with PCP after discharged from [facility].) Diet: Regular Addtl Attending Provider Instructions: check daily labs BUN creatinine hemoglobin and hematocrit Consult medicine if either creatinine or BUN become elevated. Consult medicine if hemoglobin is below 8 Continue PPI BID for 4 weeks, then switch to daily. Recommend followup with GI in 4-8 weeks. Recommend followup with PCP in 1-2 weeks post discharge Pending Studies at Discharge: No Stand-Alone Forms: My [facility] Medications and DC Order Prescriptions: New acetaminophen 325 mg Tablet 650 mg PO Q4H PRNQty: 30 0RF olanzapine 10 mg Tablet 10 mg PO HS Qty: 30 0RF ferrous sulfate 325 mg (65 mg iron) Tablet,Delayed Release (Dr/Ec) 325 mg PO MoWeFr@0900 Qty: 30 0RF olanzapine 5 mg Tablet 5 mg PO Q6 PRNQty: 30 0RF pantoprazole 40 mg Tablet,Delayed Release (Dr/Ec) 40 mg PO BID Qty: 60 0RF thiamine HCl (vitamin B1) 100 mg Tablet 500 mg PO QAM Qty: 30 0RF Discontinued quetiapine 25 mg tablet See Rx Instructions .ROUTE .COMPLEX Rx Instructions: Take 25mg w/ 50mg by mouth to equal 75mg once nightly risperidone 3 mg tablet 0 mg PO QAM Rx Instructions: Per pharmacy, last filled 06/2023 x30 day supply. Original Directions: 3mg by mouth once every morning hydroxyzine HCl 10 mg tablet 10 mg PO DAILY PRN (Reason: Anxiety) quetiapine 50 mg tablet See Rx Instructions .ROUTE .COMPLEX Rx Instructions: Take 50mg w/ 25mg by mouth to equal 75mg once nightly Discharge Orders: Discharge Order (Routine); Ordered 09/24/23 Ordered By: Nithin Herzog Admission Data Admit Date/Time: 09/19/23 14:05 Attending Provider: Nithin Herzog Admit Provider: John Paul Bishop Primary Care Provider: Cristy Connell Other Providers: Osiris Carreon; Antonia Mann; Emory Hoang; Lior Braxton Jr; Alisha De Souza; Roxana Salas; Oly Mir; Josh Curtis; Aniyah Grey; Magali Garza; Jailene Lubin; Cydney Curran; Milli Leone; Yony Oscar; Galileo Dai; Airam Barlow; Funmilayo Zhao; Elzbieta Hedrick; Ann-Marie [place]; Mone Cevallos; Annemarie Mcgarry; Fior Levi; Paulo Bunch; Jacek Hemphill; Stephen Nickerson; Edna Bowers; Alber Real Jr Coding Level of Care Code 90302 INP/OBS DISCH >30 MIN Diagnoses Encounter for assessment of decision-making capacity Z00.8 Acute gastrointestinal bleeding K92.2 Iron deficiency anemia D50.9 Alcohol abuse F10.10 Schizophrenia F20.9 Acute blood loss anemia D62
== END 2023-09-24 17:35 | DRG 377 ==
LOC: ED 13:43 → EDINP 14:05 → SUATTDRO 14:05 → EDINP 09-20 14:51 → 2E 09-20 22:07 → 2W 09-21 21:41
DX: Z79.899 Other long term (current) drug therapy; D50.9 Iron deficiency anemia, unspecified; G93.41 Metabolic encephalopathy; K92.2 Gastrointestinal hemorrhage, unspecified; F17.220 Nicotine dependence, chewing tobacco, uncomplicated; F25.0 Schizoaffective disorder, bipolar type; F30.9 Manic episode, unspecified; F17.290 Nicotine dependence, other tobacco product, uncomplicated; Z11.52 Encounter for screening for COVID-19; F10.10 Alcohol abuse, uncomplicated; D62 Acute posthemorrhagic anemia; D72.829 Elevated white blood cell count, unspecified; E51.2 Wernicke's encephalopathy; I24.89 Other forms of acute ischemic heart disease

== ENCOUNTER 2023-09-24 15:52 | Inpatient (IN) ==
[2023-09-24] MEDS ORDERED: ALUMINUM/MAGNESIUM SUSP 30 ML UDC PO PRN (17:13)
[2023-09-24] MEDS ORDERED: hydrOXYzine HCl 25 MG TAB PO PRN ×2 (17:13)
[2023-09-24] MEDS ORDERED: BISMUTH SUBSALICYLATE LIQD 236 ML PO PRN (17:13)
[2023-09-24] MEDS ORDERED: SODIUM CHLORIDE 0.65% NA SOLN 45 ML (OCEAN) PRN (17:13)
[2023-09-24] MEDS ORDERED: MAGNESIUM HYDROXIDE SUSP 30 ML UDC PO PRN (17:13)
[2023-09-24] MEDS ORDERED: NICOTINE POLACRILEX 2 MG GUM MT PRN (17:13)
[2023-09-24] MEDS: OLANZapine 10 MG TAB PO SCH (21:02)
[2023-09-24] MEDS: PANTOprazole 40 MG TAB PO SCH (21:02)
[2023-09-25] MEDS: THIAMINE HCL 100 MG TAB PO SCH (08:51)
[2023-09-25] MEDS: NICOTINE 14 MG/24 HR PATCH TD SCH (08:51)
--- NOTE | 2023-09-25 09:03 | History & Physical ---
Date of Service September 25, 2023 Impression / Recommendations Impression 43 year old man with recent GI bleed requiring blood transfusions, recent ankle pain taking large quantities of NSAIDs with a history of schizoaffective disorder who was admitted for psychosis with somatic delusions affecting his ability to manage his serious medical condition. Diagnostically seems most consistent with acute exacerbation of psychosis and rufina in setting of schizoaffective disorder. Appears to be sleeping a bit better since introduction of olanzapine but still with other symptoms of rufina and delusions. He requires psychiatric hospitalization for diagnostic clarification, safety and stabiliza tion, medication management and development of further coping skills. He is on a 303 commitment. Discussed medication treatment options in detail. Discussed risks, benefits and alternatives. Patient would like to continue and consented to olanzapine for rufina/schizoaffective disorder. Reviewed side effects including but not limited to: movement (TD, NMS), cardiac (QTc prolongation), and metabolic (stroke, insulin resistance) and necessity for fasting lipid and glucose labwork and AIMS done with score of 0. Will also consider augmentation with Depakote pending review of [facility] records and trend of Hgb as it can impact platelet function. MNPR due to psychosis and rufina, inability to tolerate a roommate Overall I spent a total of 75 minutes for this admission including review of chart records, review of labwork, direct evaluation of the patient, counseling the patient, ordering medication, risk assessment, discussion with the psychiatric liason RN and documentation in the electronic health record. (1) Schizoaffective disorder: (2) Rufina: (3) Unspecified psychosis not due to a substance or known physiological condition: Plan 09/25/2023: The patient was admitted to the [facility] ([facility]) on q15 min checks (behavioral with suicide precautions) for safety. The patient will participate in group, recreational, and milieu therapies and will be offered additional individual and family sessions as clinically appropriate. * Continue olanzapine 10mg po HS which was initiated on the medical floor * Fasting labwork in AM * Daily Hemoglobin, Cr, BUN per hospitalist recommendations * Consult hospitalist service if Hgb <8 OR Cr > 1.2 OR abnormal BUN * Continue Protonix qd and Iron MWF Inventory Assets Strengths: supportive family, lives independently, intelligent Needs: medication adjustments, improved insight into new medical condition, increased medical follow-up Suicide Risk Level Suicide Risk Level: Moderate (q15 min suicide checks) (he denies SI but is experiencing psychosis and rufina with poor insight and impairment judgment, he feels safe in the hospital) Risk Factors Assessment Male: Yes : Yes Do You Have Access To A Gun?: No Health Problems: Yes Mental Health Diagnoses: Yes Substance Use Disorders: Yes (in past) Previous Attempt: No Family History of Suicide: No Previous Psychiatric Hospitalization: Yes Hopelessness: No Protective Factors Assessment Islam Beliefs: Yes : No Responsible for Young Children: No Employed: No Stable Relationships: Yes Supportive Family: Yes Good Rapport with Provider: Yes Psychiatric History Identifying Data JULES CALDERON is a 43-year-old man who currently lives in [place] alone, has a history of schizoaffective disorder, alcohol use disorder and nicotine use, and was admitted on 09/24/23 17:42 on a 303 involuntary commitment for psychosis with delusions impacting his ability to attend his medical needs including lack of insight into his recent severe GI bleed. Chief Complaint "I'm fantastic". History of Present Illness Jules presents after being hospitalized on the medical floor for a GI bleed where he was closely monitored for further bleeding after he refused full workup including EGD due to concerns that placement of an IV for the procedure would "kill me". He remains focused on belief that all of his recent issues are due to cigar use noting that his "tarry" bowel movements were not blood but tar being excreted from his lungs from the cigars. He notes the night prior to his initial medical admission he was up all night playing video games and watching all of the [employer] movies back to back. 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 He is pleased with the olanzapine noting it is "working so well, 100 times better" than his outpatient medications of Seroquel and Vistaril had been, for helping him sleep. Further recent history per my initial consult note on 09/20/2023: "Jules was brought to the hospital yesterday on a 302 warrant, after leaving AMA while being treated for a suspected GI bleed, due to concern for delusions causing him to be at high risk of or permanent disability without medical treatment. Today he seen alongside the hospitalist and psychiatric liason RN. Jules was seen & assessed, and his progress was reviewed with the treatment team. He presents with a chief complaint of back pain, which he attributes to smoking cigars. He denies any stomach pain or bleeding but reports having tarry stools twice in the past month. He believes the tarry stools are due to tar from smoking cigars and not indicative of any gastrointestinal bleeding. Jules also reports a history of broken leg, which he self-treated by smoking cigarettes. He admits to consuming alcohol approximately once a month. He reports a poor appetite and infrequent eating habits, which he attributes to his tobacco use. Jules also mentions difficulty sleeping, with a pattern of not sleeping for two or three nights a week since his 30s though agrees he has been awake "all night for days" recently. He disagrees that he could be experiencing rufina but states he is willing to adjust his psychiatric medications. Recently has been taking Seroquel and Vistaril. Took risperidone in the past and per chart review Depakote many years ago. Denies any history of allergic or adverse reactions to psychiatric medications. He is open to trying Zyprexa to help with his appetite, as he views "jello and some food" as the best way to cure his back and ankle issues. He is adamantly opposed to IV placement as he states this will kill him and caused him to during his medical admission from which he left AMA. States it made him feel like he was underground and buried when he received the blood transfusion and he couldn't breath and "I'm , I that day". So believes all he needs now is to eat and leave. He cannot describe any risks of not following the recommended medical interventions nor any benefits. He repeatedly makes statements such as: "I'm full of tar and nicotine." "I don't eat" "What's the matter with me is it's just the tar in my backbone. I'm not bleeding from the stool. It's tar. From the tar. It's tar from my daily smoking." " Past Psychiatric History Current Psychiatric Diagnosis: Scitzoeffective Disorder Outpatient Services: Psychiatric PA: Mariola Aguirre at [facility] CM: Antonio Jaffe [facility] Peer Support Rep Payee Previous Psych Admissions: none recently, in past at [facility] and residential substance use treatment many years ago Do You Have Access To A Gun?: No History of Previous Suicide Attempt: No Past Medication Trials: seroquel, Vistaril, depakote, risperidone Past Head Trauma/Neuro History History of Concussion/Seizure: Yes (possible seizure after acute blood loss leading to medical admission) Allergies Allergy/AdvReac Type Severity Reaction Status Date / Time No Known Allergies Allergy Mild Verified 09/01/23 13:51 Home Medications Medication Instructions Recorded Confirmed Type acetaminophen 325 mg tablet 650 mg (2 x 325 mg) PO Q4H PRN #30 09/24/23 Rx tabs ferrous sulfate 325 mg (65 mg 325 mg PO MoWeFr@0900 #30 tabs 09/24/23 Rx iron) tablet,delayed release olanzapine 10 mg tablet 10 mg PO HS #30 tabs 09/24/23 Rx olanzapine 5 mg tablet 5 mg PO Q6 PRN #30 tabs 09/24/23 Rx pantoprazole 40 mg tablet,delayed 40 mg PO BID #60 tabs 09/24/23 Rx release thiamine HCl (vitamin B1) 100 mg 500 mg (5 x 100 mg) PO QAM #30 tabs 09/24/23 Rx tablet Family History Family History of: Doesn't Know Alcohol History Hx of Alcohol Use Over the Past 12 Months: No AUDIT Total Score: 0 Denies any alcohol use since Jun 2021. History of significant use while carolyn eless he states to keep warm and to feel full. History of incarceration due to public intoxication many times Smoking Use Have You Smoked or Used Tobacco Products in the Last 30 Days: Yes tobacco type: cigarettes and cigars Smoking Status: Current every day smoker Smoking packs per day: 1 Substance History Hx of Prescription Med Misuse Over the Past 12 Months: No Hx of Over the Counter Med Misuse Over the Past 12 Months: No Hx of Inhalent Misuse Over the Past 12 Months: No Hx of Organic Substance Use Over the Past 12 Months: No Hx of Illegal Substances/Street Drug Use Over Past 12 Months: No Problems as a Result of Past Substance Use: None Identified Personal History Highest Grade Completed: College Employment Status: Disabled Marital Status: Beliefs That Will Affect Care: None Current Legal Problems: No Hx Legal Problems: Yes Patient History Medical History Alcohol dependence Seizure Alcohol abuse Schizophrenia Social History Smoking Status: Current every day smoker Tobacco Type: Cigars and Smokeless Tobacco (Dip or Chew) Second Hand Exposure: No; Do You Dip or Chew Tobacco: Yes; Hx Alcohol Use: Yes Alcohol type: hard liquor Hx Substance Use: No Preferred Language: German Communication Ability: Effective Customer Service And Sales Consultant Required: No Beliefs That Will Affect Care: None Current Living Situation: Alone Current Living Situation Comment: Mother lives nearby. current occupational status: disabled Feels Safe at Home: Yes Gender Identity: Male Assistive Devices: None Review of Systems Review of Systems: All systems reviewed & are unremarkable except as noted in HPI & below Physical Exam Psychiatric: Orientation: alert and oriented x 3 Apperance: appropriately dressed, appropriately groomed and + disheveled Eye Contact: good eye contact (intense) Motor Behavior: no abnormal motor movements Speech: + loud speech; + abnormal rate/rhythm/volume of speech (rapid but able to interrupt) Affect: + labile affect and + elated affect Mood: + irritable mood; no depressed mood and no anxious mood Thought Process: + tangential thought process, + flight of ideas and + looseness of associations Thought Content: + paranoid and + delusions (somatic, hyperreligious, grandiose) Suicidal Thoughts: denies suicidal thoughts Homicidal Thoughts: denies homicidal thoughts Hallucinations: no auditory hallucinations and no visual hallucinations Cognition: language grossly intact; + attention not intact Estimated Intelligence: consistent with education level Insight: + severely impaired insight Judgment: + severely impaired judgement Vital Signs (Past 24 Hours): Last Vital Signs Temp 36.7 C 09/25/23 06:36 Pulse 63 09/25/23 06:37 Resp 16 09/25/23 06:36 BP 121/74 09/25/23 06:37 Pulse Ox 99 09/24/23 17:44 O2 Del Method Room Air 09/24/23 17:44 Exam Statement: A physical exam was performed on the medical floor by Dr. Herzog for the purposes of medical clearance. I accept that physical as correct and adequate for the purposes of the inpatient physical exam. Results & Data ([facility]) Current Inpatient Medications Current Inpatient Medications: Current Inpatient Medications Acetaminophen (Acetaminophen 325 Mg Tab) 650 mg PO Q4H PRN PRN Reason: Headache or Minor Fever Stop: 10/24/23 17:12 Al Hydrox/Mg Hydrox/Simethicone (Aluminum/Magnesium Susp 30 Ml Udc) 30 ml PO Q4H PRN PRN Reason: GI Upset Stop: 10/24/23 17:12 Bismuth Subsalicylate (Bismuth Subsalicylate Liqd 236 Ml) 15 ml PO PRN PRN PRN Reason: Loose Stool Stop: 10/24/23 17:12 Ferrous Sulfate (Ferrous Sulfate 325 Mg Tab) 325 mg PO QAM [facility] Stop: 10/26/23 08:59 Hydroxyzine HCl (Hydroxyzine Hcl 25 Mg Tab) 50 mg PO HSZ PRN PRN Reason: Insomnia Stop: 10/24/23 17:12 Hydroxyzine HCl (Hydroxyzine Hcl 25 Mg Tab) 25 mg PO Q4H PRN PRN Reason: Anxiety Stop: 10/24/23 17:12 Magnesium Hydroxide (Magnesium Hydroxide Susp 30 Ml Udc) 30 ml PO DAILY PRN PRN Reason: Constipation Stop: 10/24/23 17:12 Miscellaneous (Remove Nicoderm Patch) 1 each N/A DAILY@0859 [facility] Stop: 10/25/23 08:58 Last Admin: 09/25/23 08:51 Dose: 1 each Nicotine (Nicotine 14 Mg/24 Hr Patch) 14 mg TD QAM [facility] Stop: 10/25/23 08:59 Last Admin: 09/25/23 08:51 Dose: 14 mg Nicotine Polacrilex (Nicotine Polacrilex 2 Mg Gum) 2 piece MT PRN PRN PRN Reason: Nicotine Withdrawal Symptoms Stop: 10/24/23 17:12 Olanzapine (Olanzapine 10 Mg Tab) 10 mg PO HS [facility] Stop: 10/24/23 21:59 Last Admin: 09/24/23 21:02 Dose: 10 mg Pantoprazole Sodium (Pantoprazole 40 Mg Tab) 40 mg PO BID [facility] Stop: 10/24/23 20:59 Last Admin: 09/25/23 08:51 Dose: 40 mg Sodium Chloride (Sodium Chloride 0.65% Na Soln 45 Ml ([place])) 1 - 2 sprays NA PRN PRN PRN Reason: Nasal Dryness/Congestion Stop: 10/24/23 17:12 Thiamine HCl (Thiamine Hcl 100 Mg Tab) 500 mg PO QAM [facility] Stop: 10/25/23 08:59 Last Admin: 09/25/23 08:51 Dose: 500 mg
[2023-09-25 10:56] LABS: Creatinine Clr Calc Pharmacy 113.2 ml/min; Est GFR (African American) 111.6 ml/min; Est GFR (Non-African American) 96.3 ml/min
[2023-09-25] MEDS: ACETAMINOPHEN 325 MG TAB PO PRN (15:32)
[2023-09-26] MEDS: FERROUS SULFATE 325 MG TAB PO SCH (08:05)
[2023-09-26 08:57] LABS: Creatinine Clr Calc Pharmacy 105.4 ml/min; Est GFR (African American) 102.4 ml/min; Est GFR (Non-African American) 88.4 ml/min
--- NOTE | 2023-09-26 09:14 | Psychiatric Progress Note ---
Date of Service September 26, 2023 Impression / Recommendations Impression 43 year old man with recent GI bleed requiring blood transfusions, recent ankle pain taking large quantities of NSAIDs with a history of schizoaffective disorder who was admitted for psychosis with somatic delusions affecting his ability to manage his serious medical condition. Diagnostically seems most consistent with acute exacerbation of psychosis and rufina in setting of schizoaffective disorder. Appears to be sleeping a bit better since introduction of olanzapine but still with other symptoms of rufina and delusions. He requires psychiatric hospitalization for diagnostic clarification, safety and stabiliza tion, medication management and development of further coping skills. He is on a 303 commitment. MNPR due to psychosis and rufina, inability to tolerate a roommate 09/26/2023: Slept about 6 hours, ongoing odd beliefs about what contributes to his health, no insight into recent medical issues. Will consider further titration of olanzapine tomorrow. Labwork reviewed and Hgb, BUN, Cr normal, lipid panel and glucose normal. Overall, I spent a total of 35 minutes on this case including meeting with the patient, reviewing the chart, nursing report, multidisciplinary team meeting, orders, and documentation. (1) Schizoaffective disorder: (2) Rufina: (3) Unspecified psychosis not due to a substance or known physiological condition: Plan 09/26/2023: Continue current medications and tx plan. 09/25/2023: The patient was admitted to the [facility] ([facility]) on q15 min checks (behavioral with suicide precautions) for safety. The patient will participate in group, recreational, and milieu therapies and will be offered additional individual and family sessions as clinically appropriate. * Continue olanzapine 10mg po HS which was initiated on the medical floor * Fasting labwork in AM * Daily Hemoglobin, Cr, BUN per hospitalist recommendations * Consult hospitalist service if Hgb <8 OR Cr > 1.2 OR abnormal BUN * Continue Protonix qd and Iron MWF Inventory Assets Strengths: supportive family, lives independently, intelligent Needs: medication adjustments, improved insight into new medical condition, increased medical follow-up Suicide Risk Level Suicide Risk Level: Moderate (q15 min suicide checks) (he denies SI but is experiencing psychosis and rufina with poor insight and impairment judgment, he feels safe in the hospital) Risk Factors Assessment Male: Yes : Yes Do You Have Access To A Gun?: No Health Problems: Yes Mental Health Diagnoses: Yes Substance Use Disorders: Yes (in past) Previous Attempt: No Family History of Suicide: No Previous Psychiatric Hospitalization: Yes Hopelessness: No Protective Factors Assessment Restorationist Beliefs: Yes : No Responsible for Young Children: No Employed: No Stable Relationships: Yes Supportive Family: Yes Good Rapport with Provider: Yes Interval History Identifying Information DEWAYNE CALDERON is a 43-year-old man who currently lives in [place] alone, has a history of schizoaffective disorder, alcohol use disorder and nicotine use , and was admitted on 09/24/23 17:42 on a 303 involuntary commitment for psychosis with delusions impacting his ability to attend his medical needs including lack of insight into his recent severe GI bleed. Chief Complaint "I'm great". Review of Systems Sleep Information Total Hours of Sleep: 6 Sleep Comments: Meal Information Percent Meal Consumed - Breakfast: 100 Percent Meal Consumed - Lunch: 100 Percent Meal Consumed - Dinner: 100 Subjective Subjective Patient was seen & assessed and interval progress reviewed with treatment team nursing and social work. Disorganized last evening but did shower. Allowed blood work this AM. Upbeat and pleasant. Ongoing odd beliefs about his health stating he feels he is doing well because he ate a lot of jello and this caused him to lose weight but "I regained it all as strength". Physical Exam Psychiatric Orientation: alert and oriented x 3 Apperance: appropriately dressed, appropriately groomed and + disheveled Eye Contact: good eye contact Motor Behavior: no abnormal motor movements Speech: + loud speech; + abnormal rate/rhythm/volume of speech (rapid but able to interrupt) Affect: + labile affect and + elated affect Mood: no depressed mood, no anxious mood and no irritable mood Thought Process: + tangential thought process and + looseness of associations Thought Content: + paranoid and + delusions (somatic, hyperreligious, grandiose) Suicidal Thoughts: denies suicidal thoughts Homicidal Thoughts: denies homicidal thoughts Hallucinations: no auditory hallucinations and no visual hallucinations Cognition: language grossly intact; + attention not intact Estimated Intelligence: consistent with education level Insight: + severely impaired insight Judgment: + severely impaired judgement Vital Signs (Past 24 Hours) Last Vital Signs Temp 36.5 C 09/26/23 06:36 Pulse 71 09/26/23 06:37 Resp 16 09/26/23 06:36 BP 128/86 09/26/23 06:37 Pulse Ox 99 09/24/23 17:44 O2 Del Method Room Air 09/24/23 17:44 Results & Data ([facility]) Laboratory Results Laboratory Results - last 24 hr 09/25/23 09/26/23 10:23 07:26 Hgb 10.8 L 10.5 L BUN 7 17 Creatinine 0.95 1.02 Est Cr Clr Drug Dosing 113.2 105.4 Est GFR ( Amer) 111.6 102.4 Est GFR (Non-Af Amer) 96.3 88.4 Fasting Glucose 93 Triglycerides 87 Cholesterol 139 LDL Cholesterol, Calc 76 VLDL Cholesterol, Calc 17 HDL Cholesterol 46 Cholesterol/HDL Ratio 3.0 Current Inpatient Medications Current Inpatient Medications: Current Inpatient Medications Acetaminophen (Acetaminophen 325 Mg Tab) 650 mg PO Q4H PRN PRN Reason: Headache or Minor Fever Stop: 10/24/23 17:12 Last Admin: 09/25/23 15:32 Dose: 650 mg Al Hydrox/Mg Hydrox/Simethicone (Aluminum/Magnesium Susp 30 Ml Udc) 30 ml PO Q4H PRN PRN Reason: GI Upset Stop: 10/24/23 17:12 Bismuth Subsalicylate (Bismuth Subsalicylate Liqd 236 Ml) 15 ml PO PRN PRN PRN Reason: Loose Stool Stop: 10/24/23 17:12 Ferrous Sulfate (Ferrous Sulfate 325 Mg Tab) 325 mg PO QAM [facility] Stop: 10/26/23 08:59 Last Admin: 09/26/23 08:05 Dose: 325 mg Hydroxyzine HCl (Hydroxyzine Hcl 25 Mg Tab) 50 mg PO HSZ PRN PRN Reason: Insomnia Stop: 10/24/23 17:12 Hydroxyzine HCl (Hydroxyzine Hcl 25 Mg Tab) 25 mg PO Q4H PRN PRN Reason: Anxiety Stop: 10/24/23 17:12 Magnesium Hydroxide (Magnesium Hydroxide Susp 30 Ml Udc) 30 ml PO DAILY PRN PRN Reason: Constipation Stop: 10/24/23 17:12 Miscellaneous (Remove Nicoderm Patch) 1 each N/A DAILY@0859 [facility] Stop: 10/25/23 08:58 Last Admin: 09/26/23 08:06 Dose: 1 each Nicotine (Nicotine 14 Mg/24 Hr Patch) 14 mg TD QAM [facility] Stop: 10/25/23 08:59 Last Admin: 09/26/23 08:05 Dose: 14 mg Nicotine Polacrilex (Nicotine Polacrilex 2 Mg Gum) 2 piece MT PRN PRN PRN Reason: Nicotine Withdrawal Symptoms Stop: 10/24/23 17:12 Olanzapine (Olanzapine 10 Mg Tab) 10 mg PO HS [facility] Stop: 10/24/23 21:59 Last Admin: 09/25/23 21:25 Dose: 10 mg Pantoprazole Sodium (Pantoprazole 40 Mg Tab) 40 mg PO BID [facility] Stop: 10/24/23 20:59 Last Admin: 09/26/23 08:06 Dose: 40 mg Sodium Chloride (Sodium Chloride 0.65% Na Soln 45 Ml ([place])) 1 - 2 sprays NA PRN PRN PRN Reason: Nasal Dryness/Congestion Stop: 10/24/23 17:12 Thiamine HCl (Thiamine Hcl 100 Mg Tab) 500 mg PO QAM [facility] Stop: 10/25/23 08:59 Last Admin: 09/26/23 08:06 Dose: 500 mg Mental Health & Subst Abuse Tx Hearth Feeder Name of Hearth Feeder: Bella
[2023-09-27 07:55] LABS: Est GFR (African American) 110.2 ml/min; Est GFR (Non-African American) 95.1 ml/min
--- NOTE | 2023-09-27 10:08 | Psychiatric Progress Note ---
Date of Service September 27, 2023 Impression / Recommendations Impression 43 year old man with recent GI bleed requiring blood transfusions, recent ankle pain taking large quantities of NSAIDs with a history of schizoaffective disorder who was admitted for psychosis with somatic delusions affecting his ability to manage his serious medical condition. Diagnostically seems most consistent with acute exacerbation of psychosis and rufina in setting of schizoaffective disorder. Appears to be sleeping a bit better since introduction of olanzapine but still with other symptoms of rufina and delusions. He requires psychiatric hospitalization for diagnostic clarification, safety and stabiliza tion, medication management and development of further coping skills. He is on a 303 commitment. MNPR due to psychosis and rufina, inability to tolerate a roommate 09/27/2023: Ongoing odd beliefs about what contributes to his health, with somatic delusions, periods of grandiosity. No insight into recent medical issues. He consents to olanzapine titration. Hgb trending down but still >8. BUN and Cr are normal. Overall, I spent a total of 35 minutes on this case including meeting with the patient, reviewing the chart, nursing report, multidisciplinary team meeting, orders, and documentation. (1) Schizoaffective disorder: (2) Rufina: (3) Unspecified psychosis not due to a substance or known physiological condition: Plan 09/27/2023: Increase olanzapine to 15mg HS 09/26/2023: Continue current medications and tx plan. 09/25/2023: The patient was admitted to the [facility] ([facility] health unit) on q15 min checks (behavioral with suicide precautions) for safety. The patient will participate in group, recreational, and milieu therapies and will be offered additional individual and family sessions as clinically appropriate. * Continue olanzapine 10mg po HS which was initiated on the medical floor * Fasting labwork in AM * Daily Hemoglobin, Cr, BUN per hospitalist recommendations * Consult hospitalist service if Hgb <8 OR Cr > 1.2 OR abnormal BUN * Continue Protonix qd and Iron MWF Inventory Assets Strengths: supportive family, lives independently, intelligent Needs: medication adjustments, improved insight into new medical condition, increased medical follow-up Suicide Risk Level Suicide Risk Level: Moderate (q15 min suicide checks) (he denies SI but is experiencing psychosis and rufina with poor insight and impairment judgment, he feels safe in the hospital) Risk Factors Assessment Male: Yes : Yes Do You Have Access To A Gun?: No Health Problems: Yes Mental Health Diagnoses: Yes Substance Use Disorders: Yes (in past) Previous Attempt: No Family History of Suicide: No Previous Psychiatric Hospitalization: Yes Hopelessness: No Protective Factors Assessment Jew Beliefs: Yes : No Responsible for Young Children: No Employed: No Stable Relationships: Yes Supportive Family: Yes Good Rapport with Provider: Yes Interval History Identifying Information DEWAYNE CALDERON is a 43-year-old man who currently lives in [place] alone, has a history of schizoaffective disorder, alcohol use disorder and nicotine use, and was admitted on 09/24/23 17:42 on a 303 involuntary commitment for psychosis with delusions impacting his ability to attend his medical needs including lack of insight into his recent severe GI bleed. Chief Complaint "Doing fantastic". Review of Systems Sleep Information Total Hours of Sleep: 10 Sleep Comments: Scheduled HS Zyprexa Meal Information Percent Meal Consumed - Breakfast: 100 Percent Meal Consumed - Lunch: 100 Percent Meal Consumed - Dinner: 100 Subjective Subjective Patient was seen & assessed and interval progress reviewed with treatment team nursing and social work. Still no insight about iron being needed for recent GI bleed, reports he doesn't need it because he stopped smoking. Very positive about groups on the unit. Agreeable to higher dose of olanzapine. Ongoing odd beliefs about various food items such as jello and [place] Ice. Physical Exam Psychiatric Orientation: alert and oriented x 3 Apperance: appropriately dressed, appropriately groomed and + disheveled Eye Contact: good eye contact Motor Behavior: no abnormal motor movements Speech: + loud speech; + abnormal rate/rhythm/volume of speech (rapid but able to interrupt) Affect: + labile affect and + elated affect Mood: no depressed mood, no anxious mood and no irritable mood Thought Process: + tangential thought process and + looseness of associations Thought Content: + paranoid and + delusions (somatic, hyperreligious, grandiose) Suicidal Thoughts: denies suicidal thoughts Homicidal Thoughts: denies homicidal thoughts Hallucinations: no auditory hallucinations and no visual hallucinations Cognition: language grossly intact; + attention not intact Estimated Intelligence: consistent with education level Insight: + severely impaired insight Judgment: + severely impaired judgement Vital Signs (Past 24 Hours) Last Vital Signs Temp 36.6 C 09/27/23 06:33 Pulse 52 L 04/13/24 06:33 Resp 16 09/27/23 06:33 BP 114/69 09/27/23 06:35 Pulse Ox 97 09/27/23 06:33 O2 Del Method Room Air 09/27/23 06:33 Results & Data ([facility]) Laboratory Results Laboratory Results - last 24 hr 09/27/23 07:24 Hgb 9.0 L BUN 14 Creatinine 0.96 Est Cr Clr Drug Dosing 112.0 Est GFR ( Amer) 110.2 Est GFR (Non-Af Amer) 95.1 Current Inpatient Medications Current Inpatient Medications: Current Inpatient Medications Acetaminophen (Acetaminophen 325 Mg Tab) 650 mg PO Q4H PRN PRN Reason: Headache or Minor Fever Stop: 10/24/23 17:12 Last Admin: 09/26/23 17:54 Dose: 650 mg Al Hydrox/Mg Hydrox/Simethicone (Aluminum/Magnesium Susp 30 Ml Udc) 30 ml PO Q4H PRN PRN Reason: GI Upset Stop: 10/24/23 17:12 Bismuth Subsalicylate (Bismuth Subsalicylate Liqd 236 Ml) 15 ml PO PRN PRN PRN Reason: Loose Stool Stop: 10/24/23 17:12 Ferrous Sulfate (Ferrous Sulfate 325 Mg Tab) 325 mg PO QAM [facility] Stop: 10/26/23 08:59 Last Admin: 09/26/23 08:05 Dose: 325 mg Hydroxyzine HCl (Hydroxyzine Hcl 25 Mg Tab) 50 mg PO HSZ PRN PRN Reason: Insomnia Stop: 10/24/23 17:12 Hydroxyzine HCl (Hydroxyzine Hcl 25 Mg Tab) 25 mg PO Q4H PRN PRN Reason: Anxiety Stop: 10/24/23 17:12 Magnesium Hydroxide (Magnesium Hydroxide Susp 30 Ml Udc) 30 ml PO DAILY PRN PRN Reason: Constipation Stop: 10/24/23 17:12 Miscellaneous (Remove Nicoderm Patch) 1 each N/A DAILY@0859 [facility] Stop: 10/25/23 08:58 Last Admin: 09/27/23 07:56 Dose: 1 each Nicotine (Nicotine 14 Mg/24 Hr Patch) 14 mg TD QAM [facility] Stop: 10/25/23 08:59 Last Admin: 09/27/23 08:00 Dose: 14 mg Nicotine Polacrilex (Nicotine Polacrilex 2 Mg Gum) 2 piece MT PRN PRN PRN Reason: Nicotine Withdrawal Symptoms Stop: 10/24/23 17:12 Olanzapine (Olanzapine 10 Mg Tab) 10 mg PO HS [facility] Stop: 10/24/23 21:59 Last Admin: 09/26/23 20:39 Dose: 10 mg Pantoprazole Sodium (Pantoprazole 40 Mg Tab) 40 mg PO BID [facility] Stop: 10/24/23 20:59 Last Admin: 09/27/23 08:00 Dose: 40 mg Sodium Chloride (Sodium Chloride 0.65% Na Soln 45 Ml ([place])) 1 - 2 sprays NA PRN PRN PRN Reason: Nasal Dryness/Congestion Stop: 10/24/23 17:12 Thiamine HCl (Thiamine Hcl 100 Mg Tab) 500 mg PO QAM [facility] Stop: 10/25/23 08:59 Last Admin: 09/27/23 08:00 Dose: 500 mg Mental Health & Subst Abuse Tx Electronic Scale Tester Name of Electronic Scale Tester: Bella
[2023-09-27] MEDS: OLANZapine 5 MG TABLET PO SCH (21:06)
[2023-09-28 07:49] LABS: Creatinine Clr Calc Pharmacy 126.5 ml/min; Est GFR (Non-African American) 105.2 ml/min
--- NOTE | 2023-09-28 09:13 | Psychiatric Progress Note ---
Date of Service September 28, 2023 Impression / Recommendations Impression 43 year old man with recent GI bleed requiring blood transfusions, recent ankle pain taking large quantities of NSAIDs with a history of schizoaffective disorder who was admitted for psychosis with somatic delusions affecting his ability to manage his serious medical condition. Diagnostically seems most consistent with acute exacerbation of psychosis and rufina in setting of schizoaffective disorder. Appears to be sleeping a bit better since introduction of olanzapine but still with other symptoms of rufina and delusions. He requires psychiatric hospitalization for diagnostic clarification, safety and stabiliza tion, medication management and development of further coping skills. He is on a 303 commitment. MNPR due to psychosis and rufina, inability to tolerate a roommate 09/28/2023: Slept more with increased olanzapine dose and slightly less elevated today, still with thought disorganization, loosened associations and odd beliefs about food/somatic symptoms/medical conditions. Labwork reviewed and Hgb, BUN and Cr all normal. Discussed trial of Depakote for augmentation with olanzapine, he declines at this time due to past weight gain with Depakote and he prefers olanzapine as this helps a lot with sleep. Overall, I spent a total of 36 minutes on this case including meeting with the patient, reviewing the chart, nursing report, multidisciplinary team meeting, orders, and documentation. (1) Schizoaffective disorder: (2) Rufina: (3) Unspecified psychosis not due to a substance or known physiological condition: Plan 09/28/2023: Continue current medications and tx plan. 09/27/2023: Increase olanzapine to 15mg HS 09/26/2023: Continue current medications and tx plan. 09/25/2023: The patient was admitted to the [facility] ([facility] mental health unit) on q15 min checks (behavioral with suicide precautions) for safety. The patient will participate in group, recreational, and milieu therapies and will be offered additional individual and family sessions as clinically appropriate. * Continue olanzapine 10mg po HS which was initiated on the medical floor * Fasting labwork in AM * Daily Hemoglobin, Cr, BUN per hospitalist recommendations * Consult hospitalist service if Hgb <8 OR Cr > 1.2 OR abnormal BUN * Continue Protonix qd and Iron MWF Inventory Assets Strengths: supportive family, lives independently, intelligent Needs: medication adjustments, improved insight into new medical condition, increased medical follow-up Suicide Risk Level Suicide Risk Level: Moderate (q15 min suicide checks) (he denies SI but is experiencing psychosis and rufina with poor insight and impairment judgment, he feels safe in the hospital) Risk Factors Assessment Male: Yes : Yes Do You Have Access To A Gun?: No Health Problems: Yes Mental Health Diagnoses: Yes Substance Use Disorders: Yes (in past) Previous Attempt: No Family History of Suicide: No Previous Psychiatric Hospitalization: Yes Hopelessness: No Protective Factors Assessment Yazidism Beliefs: Yes : No Responsible for Young Children: No Employed: No Stable Relationships: Yes Supportive Family: Yes Good Rapport with Provider: Yes Interval History Identifying Information DEWAYNE CALDERON is a 43-year-old man who currently lives in [place] alone, has a history of schizoaffective disorder, alcohol use disorder and nicotine use, and was admitted on 09/24/23 17:42 on a 303 involuntary commitment for psychosis with delusions impacting his ability to attend his medical needs including lack of insight into his recent severe GI bleed. Chief Complaint "I'm good". Review of Systems Sleep Information Total Hours of Sleep: 8 Sleep Comments: Scheduled Zyprexa Meal Information Percent Meal Consumed - Breakfast: 100 Percent Meal Consumed - Lunch: 100 Percent Meal Consumed - Dinner: 100 Subjective Subjective Patient was seen & assessed and interval progress reviewed with treatment team nursing and social work. Spoke with his mom briefly on the phone. Still with delusions about medical conditions and delusions related to food. Today he reports satisfaction with sleeping well with the higher dose of olanzapine. Still disorganized topics telling me about various statements he is going to focus on (later learned likely goals he identified while in the safety planning group). Continues to have odd beliefs about power of certain food items asking again about jello, [place] Ice and "clears" from his previous clear liquid diet seeming to believe these allow him to lose weight and turn it all into muscle and fix his tobacco use. Physical Exam Psychiatric Orientation: alert and oriented x 3 Apperance: appropriately dressed, appropriately groomed and + disheveled Eye Contact: good eye contact Motor Behavior: no abnormal motor movements Speech: + abnormal rate/rhythm/volume of speech (rapid but able to interrupt) Affect: + labile affect and + elated affect Mood: no depressed mood, no anxious mood and no irritable mood Thought Process: + tangential thought process and + looseness of associations Thought Content: + paranoid and + delusions (somatic, hyperreligious, grandiose) Suicidal Thoughts: denies suicidal thoughts Homicidal Thoughts: denies homicidal thoughts Hallucinations: no auditory hallucinations and no visual hallucinations Cognition: language grossly intact; + attention not intact Estimated Intelligence: consistent with education level Insight: + severely impaired insight Judgment: + limited judgement Vital Signs (Past 24 Hours) Last Vital Signs Temp 36.8 C 09/28/23 06:36 Pulse 91 H 09/28/23 06:37 Resp 16 09/28/23 06:36 BP 104/71 09/28/23 06:37 Pulse Ox 98 09/28/23 06:36 O2 Del Method Room Air 09/28/23 06:36 Results & Data ([facility]) Laboratory Results Laboratory Results - last 24 hr 09/27/23 09/28/23 07:24 06:54 Hgb 9.0 L 11.1 L BUN 12 Creatinine 0.85 Est Cr Clr Drug Dosing 126.5 Est GFR ( Amer) 122.0 Est GFR (Non-Af Amer) 105.2 Current Inpatient Medications Current Inpatient Medications: Current Inpatient Medications Acetaminophen (Acetaminophen 325 Mg Tab) 650 mg PO Q4H PRN PRN Reason: Headache or Minor Fever Stop: 10/24/23 17:12 Last Admin: 09/27/23 12:50 Dose: 650 mg Al Hydrox/Mg Hydrox/Simethicone (Aluminum/Magnesium Susp 30 Ml Udc) 30 ml PO Q4H PRN PRN Reason: GI Upset Stop: 10/24/23 17:12 Bismuth Subsalicylate (Bismuth Subsalicylate Liqd 236 Ml) 15 ml PO PRN PRN PRN Reason: Loose Stool Stop: 10/24/23 17:12 Ferrous Sulfate (Ferrous Sulfate 325 Mg Tab) 325 mg PO MoWeFr@0900 [facility] Stop: 10/29/23 08:59 Hydroxyzine HCl (Hydroxyzine Hcl 25 Mg Tab) 50 mg PO HSZ PRN PRN Reason: Insomnia Stop: 10/24/23 17:12 Hydroxyzine HCl (Hydroxyzine Hcl 25 Mg Tab) 25 mg PO Q4H PRN PRN Reason: Anxiety Stop: 10/24/23 17:12 Magnesium Hydroxide (Magnesium Hydroxide Susp 30 Ml Udc) 30 ml PO DAILY PRN PRN Reason: Constipation Stop: 10/24/23 17:12 Miscellaneous (Remove Nicoderm Patch) 1 each N/A DAILY@0859 [facility] Stop: 10/25/23 08:58 Last Admin: 09/28/23 08:21 Dose: Not Given Nicotine (Nicotine 14 Mg/24 Hr Patch) 14 mg TD QAM [facility] Stop: 10/25/23 08:59 Last Admin: 09/28/23 08:18 Dose: 14 mg Nicotine Polacrilex (Nicotine Polacrilex 2 Mg Gum) 2 piece MT PRN PRN PRN Reason: Nicotine Withdrawal Symptoms Stop: 10/24/23 17:12 Olanzapine (Olanzapine 5 Mg Tablet) 15 mg PO HS [facility] Stop: 10/27/23 21:59 Last Admin: 09/27/23 21:06 Dose: 15 mg Pantoprazole Sodium (Pantoprazole 40 Mg Tab) 40 mg PO BID [facility] Stop: 10/24/23 20:59 Last Admin: 09/28/23 08:18 Dose: 40 mg Sodium Chloride (Sodium Chloride 0.65% Na Soln 45 Ml ([place])) 1 - 2 sprays NA PRN PRN PRN Reason: Nasal Dryness/Congestion Stop: 10/24/23 17:12 Thiamine HCl (Thiamine Hcl 100 Mg Tab) 500 mg PO QAM [facility] Stop: 10/25/23 08:59 Last Admin: 09/28/23 08:18 Dose: 500 mg Mental Health & Subst Abuse Tx Wild Animal Caretaker Name of Wild Animal Caretaker: Bella
[2023-09-29] MEDS: FERROUS SULFATE 325 MG TAB PO SCH (07:43)
[2023-09-29 08:23] LABS: Creatinine Clr Calc Pharmacy 126.5 ml/min; Est GFR (Non-African American) 105.2 ml/min
--- NOTE | 2023-09-29 09:13 | Psychiatric Progress Note ---
Date of Service September 29, 2023 Impression / Recommendations Impression 43 year old man with recent GI bleed requiring blood transfusions, recent ankle pain taking large quantities of NSAIDs with a history of schizoaffective disorder who was admitted for psychosis with somatic delusions affecting his ability to manage his serious medical condition. Diagnostically seems most consistent with acute exacerbation of psychosis and rufina in setting of schizoaffective disorder. Appears to be sleeping a bit better since introduction of olanzapine but still with other symptoms of rufina and delusions. He requires psychiatric hospitalization for diagnostic clarification, safety and stabiliza tion, medication management and development of further coping skills. He is on a 303 commitment. MNPR due to psychosis and rufina, inability to tolerate a roommate 09/29/2023: Ongoing delusions, unable to reality-test these at all. Ongoing poor insight into medical issues. Remains focused on belief of food being cure for his recent issues. Some symptoms of rufina lessening with olanzapine, will start to consider option for MARCIAL. Overall, I spent a total of 42 minutes on this case including meeting with the patient, reviewing the chart, nursing report, multidisciplinary team meeting, orders, and documentation and collateral information from his mother via phone discussion. (1) Schizoaffective disorder: (2) Rufina: (3) Unspecified psychosis not due to a substance or known physiological condition: Plan 09/29/2023: Continue current medications and tx plan. 09/28/2023: Continue current medications and tx plan. 09/27/2023: Increase olanzapine to 15mg HS 09/26/2023: Continue current medications and tx plan. 09/25/2023: The patient was admitted to the [facility] ([facility]) on q15 min checks (behavioral with suicide precautions) for safety. The patient will participate in group, recreational, and milieu therapies and will be offered additional individual and family sessions as clinically appropriate. * Continue olanzapine 10mg po HS which was initiated on the medical floor * Fasting labwork in AM * Daily Hemoglobin, Cr, BUN per hospitalist recommendations * Consult hospitalist service if Hgb <8 OR Cr > 1.2 OR abnormal BUN * Continue Protonix qd and Iron MWF Inventory Assets Strengths: supportive family, lives independently, intelligent Needs: medication adjustments, improved insight into new medical condition, increased medical follow-up Suicide Risk Level Suicide Risk Level: Moderate (q15 min suicide checks) (he denies SI but is experiencing psychosis and rufina with poor insight and impairment judgment, he feels safe in the hospital) Risk Factors Assessment Male: Yes : Yes Do You Have Access To A Gun?: No Health Problems: Yes Mental Health Diagnoses: Yes Substance Use Disorders: Yes (in past) Previous Attempt: No Family History of Suicide: No Previous Psychiatric Hospitalization: Yes Hopelessness: No Protective Factors Assessment Confucianist Beliefs: Yes : No Responsible for Young Children: No Employed: No Stable Relationships: Yes Supportive Family: Yes Good Rapport with Provider: Yes Interval History Identifying Information DEWAYNE CALDERON is a 43-year-old man who currently lives in [place] alone, has a history of schizoaffective disorder, alcohol use disorder and nicotine use, and was admitted on 09/24/23 17:42 on a 303 involuntary commitment for psychosis with delusions impacting his ability to attend his medical needs including lack of insight into his recent severe GI bleed. Chief Complaint "Hopeful and enthused". Review of Systems Sleep Information Total Hours of Sleep: 9 Sleep Comments: Meal Information Percent Meal Consumed - Breakfast: 100 Percent Meal Consumed - Lunch: 100 Percent Meal Consumed - Dinner: 100 Subjective Subjective Patient was seen & assessed and interval progress reviewed with treatment team nursing and social work. Yesterday observed responding to some internal stimuli whispering to himself. Some grandiosity about making a music album while playing on the unit keyboard. Attending all the groups. He had a good visit with his mother. Today focused again on how jello and other food items "really helped" him and he believes they are the reason his blood counts improved. Denies any side effects from olanzapine, continues to like this. Spoke with his mother over the phone who reported he often stops his medication in the outpatient setting, possibly due to concerns about mixing medication and alcohol. Previously took Invega MARCIAL for a few months but then stopped. His mother recalled in the past he was focused on his ankle and at one point put ice on it for so long that he had skin breakdown and required antibiotics for a skin infection. Physical Exam Psychiatric Orientation: alert and oriented x 3 Apperance: appropriately dressed, appropriately groomed and + disheveled Eye Contact: good eye contact Motor Behavior: no abnormal motor movements Speech: + abnormal rate/rhythm/volume of speech (rapid but able to interrupt) Affect: + elated affect Mood: no depressed mood, no anxious mood and no irritable mood Thought Process: + tangential thought process and + looseness of associations Thought Content: + paranoid and + delusions (somatic, hyperreligious, grandiose) Suicidal Thoughts: denies suicidal thoughts Homicidal Thoughts: denies homicidal thoughts Hallucinations: no auditory hallucinations and no visual hallucinations Cognition: language grossly intact; + attention not intact Estimated Intelligence: consistent with education level Insight: + severely impaired insight Judgment: + limited judgement Vital Signs (Past 24 Hours) Last Vital Signs Temp 36.9 C 09/29/23 06:51 Pulse 96 H 09/29/23 06:51 Resp 16 09/29/23 06:51 BP 119/75 09/29/23 06:51 Pulse Ox 98 09/28/23 06:36 O2 Del Method Room Air 09/28/23 06:36 Results & Data ([facility]) Laboratory Results Laboratory Results - last 24 hr 09/29/23 07:27 Hgb 11.1 L BUN 12 Creatinine 0.85 Est Cr Clr Drug Dosing 126.5 Est GFR ( Amer) 122.0 Est GFR (Non-Af Amer) 105.2 Current Inpatient Medications Current Inpatient Medications: Current Inpatient Medications Acetaminophen (Acetaminophen 325 Mg Tab) 650 mg PO Q4H PRN PRN Reason: Headache or Minor Fever Stop: 10/24/23 17:12 Last Admin: 09/27/23 12:50 Dose: 650 mg Al Hydrox/Mg Hydrox/Simethicone (Aluminum/Magnesium Susp 30 Ml Udc) 30 ml PO Q4H PRN PRN Reason: GI Upset Stop: 10/24/23 17:12 Bismuth Subsalicylate (Bismuth Subsalicylate Liqd 236 Ml) 15 ml PO PRN PRN PRN Reason: Loose Stool Stop: 10/24/23 17:12 Ferrous Sulfate (Ferrous Sulfate 325 Mg Tab) 325 mg PO MoWeFr@0900 [facility] Stop: 10/29/23 08:59 Last Admin: 09/29/23 07:43 Dose: 325 mg Hydroxyzine HCl (Hydroxyzine Hcl 25 Mg Tab) 50 mg PO HSZ PRN PRN Reason: Insomnia Stop: 10/24/23 17:12 Hydroxyzine HCl (Hydroxyzine Hcl 25 Mg Tab) 25 mg PO Q4H PRN PRN Reason: Anxiety Stop: 10/24/23 17:12 Magnesium Hydroxide (Magnesium Hydroxide Susp 30 Ml Udc) 30 ml PO DAILY PRN PRN Reason: Constipation Stop: 10/24/23 17:12 Miscellaneous (Remove Nicoderm Patch) 1 each N/A DAILY@0859 [facility] Stop: 10/25/23 08:58 Last Admin: 09/29/23 07:44 Dose: Not Given Nicotine (Nicotine 14 Mg/24 Hr Patch) 14 mg TD QAM [facility] Stop: 10/25/23 08:59 Last Admin: 09/29/23 07:41 Dose: 14 mg Nicotine Polacrilex (Nicotine Polacrilex 2 Mg Gum) 2 piece MT PRN PRN PRN Reason: Nicotine Withdrawal Symptoms Stop: 10/24/23 17:12 Olanzapine (Olanzapine 5 Mg Tablet) 15 mg PO HS [facility] Stop: 10/27/23 21:59 Last Admin: 09/28/23 20:25 Dose: 15 mg Pantoprazole Sodium (Pantoprazole 40 Mg Tab) 40 mg PO BID [facility] Stop: 10/24/23 20:59 Last Admin: 09/29/23 07:42 Dose: 40 mg Sodium Chloride (Sodium Chloride 0.65% Na Soln 45 Ml ([place])) 1 - 2 sprays NA PRN PRN PRN Reason: Nasal Dryness/Congestion Stop: 10/24/23 17:12 Thiamine HCl (Thiamine Hcl 100 Mg Tab) 500 mg PO QAM [facility] Stop: 10/25/23 08:59 Last Admin: 09/29/23 07:42 Dose: 500 mg Mental Health & Subst Abuse Tx Computer Meteorologist Name of Computer Meteorologist: Bella
[2023-09-30 08:06] LABS: Creatinine Clr Calc Pharmacy 122.2 ml/min; Est GFR (African American) 120.2 ml/min; Est GFR (Non-African American) 103.7 ml/min
--- NOTE | 2023-09-30 09:06 | Psychiatric Progress Note ---
Date of Service September 30, 2023 Impression / Recommendations Impression 43 year old man with recent GI bleed requiring blood transfusions, recent ankle pain taking large quantities of NSAIDs with a history of schizoaffective disorder who was admitted for psychosis with somatic delusions affecting his ability to manage his serious medical condition. Diagnostically seems most consistent with acute exacerbation of psychosis and rufina in setting of schizoaffective disorder. Appears to be sleeping a bit better since introduction of olanzapine but still with other symptoms of rufina and delusions. He requires psychiatric hospitalization for diagnostic clarification, safety and stabiliza tion, medication management and development of further coping skills. He is on a 303 commitment. MNPR due to psychosis and rufina, inability to tolerate a roommate 09/30/2023: Ongoing delusions, unable to reality-test these at all. Increase olanzapine to continue to target delusions and manic symptoms. Overall, I spent a total of 32 minutes on this case including meeting with the patient, reviewing the chart, nursing report, multidisciplinary team meeting, orders, and documentation. (1) Schizoaffective disorder: (2) Rufina: (3) Unspecified psychosis not due to a substance or known physiological condition: Plan 09/30/2023: Increase olanzapine to 20mg HS 09/29/2023: Continue current medications and tx plan. 09/28/2023: Continue current medications and tx plan. 09/27/2023: Increase olanzapine to 15mg HS 09/26/2023: Continue current medications and tx plan. 09/25/2023: The patient was admitted to the [facility] ([facility]) on q15 min checks (behavioral with suicide precautions) for safety. The patient will participate in group, recreational, and milieu therapies and will be offered additional individual and family sessions as clinically appropriate. * Continue olanzapine 10mg po HS which was initiated on the medical floor * Fasting labwork in AM * Daily Hemoglobin, Cr, BUN per hospitalist recommendations * Consult hospitalist service if Hgb <8 OR Cr > 1.2 OR abnormal BUN * Continue Protonix qd and Iron MWF Inventory Assets Strengths: supportive family, lives independently, intelligent Needs: medication adjustments, improved insight into new medical condition, increased m edical follow-up Suicide Risk Level Suicide Risk Level: Moderate (q15 min suicide checks) (he denies SI but is experiencing psychosis and rufina with poor insight and impairment judgment, he feels safe in the hospital) Risk Factors Assessment Male: Yes : Yes Do You Have Access To A Gun?: No Health Problems: Yes Mental Health Diagnoses: Yes Substance Use Disorders: Yes (in past) Previous Attempt: No Family History of Suicide: No Previous Psychiatric Hospitalization: Yes Hopelessness: No Protective Factors Assessment Hoahaoism Beliefs: Yes : No Responsible for Young Children: No Employed: No Stable Relationships: Yes Supportive Family: Yes Good Rapport with Provider: Yes Interval History Identifying Information DEWAYNE CALDERON is a 43-year-old man who currently lives in [place] alone, has a history of schizoaffective disorder, alcohol use disorder and nicotine use, and was admitted on 09/24/23 17:42 on a 303 involuntary commitment for psychosis with delusions impacting his ability to attend his medical needs including lack of insight into his recent severe GI bleed. Chief Complaint "Really good". Review of Systems Sleep Information Total Hours of Sleep: 6.30 Meal Information Percent Meal Consumed - Breakfast: 100 Percent Meal Consumed - Lunch: 100 Percent Meal Consumed - Dinner: 100 Subjective Subjective Patient was seen & assessed and interval progress reviewed with treatment team nursing and social work. Observed responding to internal stimuli in the hallways. Reports good mood and sleeping well. No side effects from olanzapine, he is agreeable to increasing the dose. Continues to deny any recent alcohol use prior to admission. Continues to disagree with assertion that he experienced a GI bleed. Focused on his belief his seizure/syncopal event came from lack of eating (which he says he did not eat for a week due to lack of funds) and from tar from cigar use. Remains focused on food being the cure for all his physical issues and that he doesn't need any medical follow-up but pleased to hear his Hgb is improving. Physical Exam Psychiatric Orientation: alert and oriented x 3 Apperance: appropriately dressed and appropriately groomed Eye Contact: good eye contact Motor Behavior: no abnormal motor movements Speech: normal rate/rhythm/volume of speech Affect: + elated affect Mood: no depressed mood, no anxious mood and no irritable mood Thought Process: + tangential thought process and + looseness of associations Thought Content: + delusions (somatic, grandiose) Suicidal Thoughts: denies suicidal thoughts Homicidal Thoughts: denies homicidal thoughts Hallucinations: no auditory hallucinations and no visual hallucinations Cognition: language grossly intact; + attention not intact Estimated Intelligence: consistent with education level Insight: + severely impaired insight Judgment: + limited judgement Vital Signs (Past 24 Hours) Last Vital Signs Temp 36.4 C L 09/30/23 06:42 Pulse 94 H 09/30/23 06:42 Resp 16 09/30/23 06:42 BP 108/72 09/30/23 06:42 Pulse Ox 98 09/28/23 06:36 O2 Del Method Room Air 09/28/23 06:36 Results & Data ([facility]) Laboratory Results Laboratory Results - last 24 hr 09/30/23 07:21 Hgb 11.2 L BUN 12 Creatinine 0.88 Est Cr Clr Drug Dosing 122.2 Est GFR ( Amer) 120.2 Est GFR (Non-Af Amer) 103.7 Current Inpatient Medications Current Inpatient Medications: Current Inpatient Medications Acetaminophen (Acetaminophen 325 Mg Tab) 650 mg PO Q4H PRN PRN Reason: Headache or Minor Fever Stop: 10/24/23 17:12 Last Admin: 09/29/23 14:25 Dose: 650 mg Al Hydrox/Mg Hydrox/Simethicone (Aluminum/Magnesium Susp 30 Ml Udc) 30 ml PO Q4H PRN PRN Reason: GI Upset Stop: 10/24/23 17:12 Bismuth Subsalicylate (Bismuth Subsalicylate Liqd 236 Ml) 15 ml PO PRN PRN PRN Reason: Loose Stool Stop: 10/24/23 17:12 Ferrous Sulfate (Ferrous Sulfate 325 Mg Tab) 325 mg PO MoWeFr@0900 [facility] Stop: 10/29/23 08:59 Last Admin: 09/29/23 07:43 Dose: 325 mg Hydroxyzine HCl (Hydroxyzine Hcl 25 Mg Tab) 50 mg PO HSZ PRN PRN Reason: Insomnia Stop: 10/24/23 17:12 Hydroxyzine HCl (Hydroxyzine Hcl 25 Mg Tab) 25 mg PO Q4H PRN PRN Reason: Anxiety Stop: 10/24/23 17:12 Magnesium Hydroxide (Magnesium Hydroxide Susp 30 Ml Udc) 30 ml PO DAILY PRN PRN Reason: Constipation Stop: 10/24/23 17:12 Miscellaneous (Remove Nicoderm Patch) 1 each N/A DAILY@0859 [facility] Stop: 10/25/23 08:58 Last Admin: 09/30/23 08:28 Dose: 1 each Nicotine (Nicotine 14 Mg/24 Hr Patch) 14 mg TD QAM [facility] Stop: 10/25/23 08:59 Last Admin: 09/30/23 08:22 Dose: 14 mg Nicotine Polacrilex (Nicotine Polacrilex 2 Mg Gum) 2 piece MT PRN PRN PRN Reason: Nicotine Withdrawal Symptoms Stop: 10/24/23 17:12 Olanzapine (Olanzapine 5 Mg Tablet) 15 mg PO HS [facility] Stop: 10/27/23 21:59 Last Admin: 09/29/23 21:31 Dose: 15 mg Pantoprazole Sodium (Pantoprazole 40 Mg Tab) 40 mg PO BID [facility] Stop: 10/24/23 20:59 Last Admin: 09/30/23 08:22 Dose: 40 mg Sodium Chloride (Sodium Chloride 0.65% Na Soln 45 Ml ([place])) 1 - 2 sprays NA PRN PRN PRN Reason: Nasal Dryness/Congestion Stop: 10/24/23 17:12 Thiamine HCl (Thiamine Hcl 100 Mg Tab) 500 mg PO QAM [facility] Stop: 10/25/23 08:59 Last Admin: 09/30/23 08:22 Dose: 500 mg Mental Health & Subst Abuse Tx Automotive Electrical Fitter Name of Automotive Electrical Fitter: Bella
[2023-09-30] MEDS: OLANZapine 20 MG TABLET PO SCH (20:52)
[2023-10-01 08:18] LABS: Creatinine Clr Calc Pharmacy 131.1 ml/min; Est GFR (African American) 123.8 ml/min; Est GFR (Non-African American) 106.8 ml/min
--- NOTE | 2023-10-01 09:11 | Psychiatric Progress Note ---
Date of Service October 01, 2023 Impression / Recommendations Impression 43 year old man with recent GI bleed requiring blood transfusions, recent ankle pain taking large quantities of NSAIDs with a history of schizoaffective disorder who was admitted for psychosis with somatic delusions affecting his ability to manage his serious medical condition. Diagnostically seems most consistent with acute exacerbation of psychosis and rufina in setting of schizoaffective disorder. Appears to be sleeping a bit better since introduction of olanzapine but still with other symptoms of rufina and delusions. He requires psychiatric hospitalization for diagnostic clarification, safety and stabiliza tion, medication management and development of further coping skills. He is on a 303 commitment. MNPR due to psychosis and rufina, inability to tolerate a roommate 10/01/2023: Ongoing delusions, unable to reality-test these at all. Tolerating initial higher dose of olanzapine, exploring MARCIAL options, for now he is not interested in this. Overall, I spent a total of 28 minutes on this case including meeting with the patient, reviewing the chart, nursing report, multidisciplinary team meeting, orders, and documentation. (1) Schizoaffective disorder: (2) Rufina: (3) Unspecified psychosis not due to a substance or known physiological condition: Plan 10/01/2023: Continue current medications and tx plan. 09/30/2023: Increase olanzapine to 20mg HS 09/29/2023: Continue current medications and tx plan. 09/28/2023: Continue current medications and tx plan. 09/27/2023: Increase olanzapine to 15mg HS 09/26/2023: Continue current medications and tx plan. 09/25/2023: The patient was admitted to the [facility] ([facility]) on q15 min checks (behavioral with suicide precautions) for safety. The patient will participate in group, recreational, and milieu therapies and will be offered additional individual and family sessions as clinically appropriate. * Continue olanzapine 10mg po HS which was initiated on the medical floor * Fasting labwork in AM * Daily Hemoglobin, Cr, BUN per hospitalist recommendations * Consult hospitalist service if Hgb <8 OR Cr > 1.2 OR abnormal BUN * Continue Protonix qd and Iron MWF Inventory Assets Strengths: supportive family, lives independently, intelligent Needs: medication adjustments, improved insight into new medical condition, increased medical follow-up Suicide Risk Level Suicide Risk Level: Moderate (q15 min suicide checks) (he denies SI but is experiencing psychosis and rufina with poor insight and impairment judgment, he feels safe in the hospital) Risk Factors Assessment Male: Yes : Yes Do You Have Access To A Gun?: No Health Problems: Yes Mental Health Diagnoses: Yes Substance Use Disorders: Yes (in past) Previous Attempt: No Family History of Suicide: No Previous Psychiatric Hospitalization: Yes Hopelessness: No Protective Factors Assessment Nondenominational Beliefs: Yes : No Responsible for Young Children: No Employed: No Stable Relationships: Yes Supportive Family: Yes Good Rapport with Provider: Yes Interval History Identifying Information DEWAYNE CALDERON is a 43-year-old man who currently lives in [place] alone, has a history of schizoaffective disorder, alcohol use disorder and nicotine use, and was admitted on 09/24/23 17:42 on a 303 involuntary commitment for psychosis with delusions impacting his ability to attend his medical needs including lack of insight into his recent severe GI bleed. Chief Complaint "pretty good". Review of Systems Sleep Information Total Hours of Sleep: 7.25 Meal Information Percent Meal Consumed - Breakfast: 100 Percent Meal Consumed - Lunch: 100 Percent Meal Consumed - Dinner: 100 Subjective Subjective Patient was seen & assessed and interval progress reviewed with treatment team nursing and social work. Attending groups. This morning malordorus so shower was recommended, he said he would consider trying this afternoon. Reports good mood. No insight into recent GI bleed. Discussing today his belief that certain amounts of vegetables and specific foods such as eggs and fruit. Denies any medication side effects. Unsure about idea of MARCIAL. Continues to deny any recent alcohol use. Physical Exam Psychiatric Orientation: alert and oriented x 3 Apperance: appropriately dressed and appropriately groomed Eye Contact: good eye contact Motor Behavior: no abnormal motor movements Speech: normal rate/rhythm/volume of speech Affect: + elated affect Mood: no depressed mood, no anxious mood and no irritable mood Thought Process: + tangential thought process and + looseness of associations Thought Content: + delusions (somatic, grandiose) Suicidal Thoughts: denies suicidal thoughts Homicidal Thoughts: denies homicidal thoughts Hallucinations: no auditory hallucinations and no visual hallucinations Cognition: language grossly intact; + attention not intact Estimated Intelligence: consistent with education level Insight: + severely impaired insight Judgment: + limited judgement Vital Signs (Past 24 Hours) Last Vital Signs Temp 36.5 C 10/01/23 06:29 Pulse 74 10/01/23 06:30 Resp 16 10/01/23 06:29 BP 106/63 10/01/23 06:30 Pulse Ox 98 09/28/23 06:36 O2 Del Method Room Air 09/28/23 06:36 Results & Data ([facility]) Laboratory Results Laboratory Results - last 24 hr 10/01/23 07:42 Hgb 11.0 L Creatinine 0.82 Est Cr Clr Drug Dosing 131.1 Est GFR ( Amer) 123.8 Est GFR (Non-Af Amer) 106.8 Current Inpatient Medications Current Inpatient Medications: Current Inpatient Medications Acetaminophen (Acetaminophen 325 Mg Tab) 650 mg PO Q4H PRN PRN Reason: Headache or Minor Fever Stop: 10/24/23 17:12 Last Admin: 09/29/23 14:25 Dose: 650 mg Al Hydrox/Mg Hydrox/Simethicone (Aluminum/Magnesium Susp 30 Ml Udc) 30 ml PO Q4H PRN PRN Reason: GI Upset Stop: 10/24/23 17:12 Bismuth Subsalicylate (Bismuth Subsalicylate Liqd 236 Ml) 15 ml PO PRN PRN PRN Reason: Loose Stool Stop: 10/24/23 17:12 Ferrous Sulfate (Ferrous Sulfate 325 Mg Tab) 325 mg PO MoWeFr@0900 [facility] Stop: 10/29/23 08:59 Last Admin: 10/01/23 08:16 Dose: 325 mg Hydroxyzine HCl (Hydroxyzine Hcl 25 Mg Tab) 50 mg PO HSZ PRN PRN Reason: Insomnia Stop: 10/24/23 17:12 Hydroxyzine HCl (Hydroxyzine Hcl 25 Mg Tab) 25 mg PO Q4H PRN PRN Reason: Anxiety Stop: 10/24/23 17:12 Magnesium Hydroxide (Magnesium Hydroxide Susp 30 Ml Udc) 30 ml PO DAILY PRN PRN Reason: Constipation Stop: 10/24/23 17:12 Miscellaneous (Remove Nicoderm Patch) 1 each N/A DAILY@0859 [facility] Stop: 10/25/23 08:58 Last Admin: 10/01/23 08:16 Dose: 1 each Nicotine (Nicotine 14 Mg/24 Hr Patch) 14 mg TD QAM [facility] Stop: 10/25/23 08:59 Last Admin: 10/01/23 08:16 Dose: 14 mg Nicotine Polacrilex (Nicotine Polacrilex 2 Mg Gum) 2 piece MT PRN PRN PRN Reason: Nicotine Withdrawal Symptoms Stop: 10/24/23 17:12 Olanzapine (Olanzapine 20 Mg Tablet) 20 mg PO HS [facility] Stop: 10/30/23 21:59 Last Admin: 09/30/23 20:52 Dose: 20 mg Pantoprazole Sodium (Pantoprazole 40 Mg Tab) 40 mg PO BID [facility] Stop: 10/24/23 20:59 Last Admin: 10/01/23 08:16 Dose: 40 mg Sodium Chloride (Sodium Chloride 0.65% Na Soln 45 Ml ([place])) 1 - 2 sprays NA PRN PRN PRN Reason: Nasal Dryness/Congestion Stop: 10/24/23 17:12 Thiamine HCl (Thiamine Hcl 100 Mg Tab) 500 mg PO QAM [facility] Stop: 10/25/23 08:59 Last Admin: 10/01/23 08:15 Dose: 500 mg Mental Health & Subst Abuse Tx Chairman President And Chief Executive Officer Name of Chairman President And Chief Executive Officer: Bella
[2023-10-02 07:59] LABS: Creatinine Clr Calc Pharmacy 129.6 ml/min; Est GFR (African American) 123.2 ml/min; Est GFR (Non-African American) 106.3 ml/min
[2023-10-02] MEDS: NICOTINE 14 MG/24 HR PATCH TD SCH (08:49)
--- NOTE | 2023-10-02 09:13 | Psychiatric Progress Note ---
Date of Service October 02, 2023 Impression / Recommendations Impression 43 year old man with recent GI bleed requiring blood transfusions, recent ankle pain taking large quantities of NSAIDs with a history of schizoaffective disorder who was admitted for psychosis with somatic delusions affecting his ability to manage his serious medical condition. Diagnostically seems most consistent with acute exacerbation of psychosis and rufina in setting of schizoaffective disorder. Appears to be sleeping a bit better since introduction of olanzapine but still with other symptoms of rufina and delusions. He requires psychiatric hospitalization for diagnostic clarification, safety and stabiliza tion, medication management and development of further coping skills. He is on a 303 commitment. MNPR due to psychosis and rufina, inability to tolerate a roommate 10/02/2023: Ongoing somatic delusions but fewer symptoms of rufina with improved sleep and no grandiose or hyperreligious statements. Declining consideration of MARCIAL to improve outpatient adherence but encouragingly he likes olanzapine and is agreeable to continuing with this. Still very poor insight into recent medical issues and alcohol use. Overall, I spent a total of 23 minutes on this case including meeting with the patient, reviewing the chart, nursing report, multidisciplinary team meeting, orders, and documentation. (1) Schizoaffective disorder: (2) Rufina: (3) Unspecified psychosis not due to a substance or known physiological condition: Plan 10/02/2023: Continue current medications and tx plan. 10/01/2023: Continue current medications and tx plan. 09/30/2023: Increase olanzapine to 20mg HS 09/29/2023: Continue current medications and tx plan. 09/28/2023: Continue current medications and tx plan. 09/27/2023: Increase olanzapine to 15mg HS 09/26/2023: Continue current medications and tx plan. 09/25/2023: The patient was admitted to the [facility] ([facility] mental health unit) on q15 min checks (behavioral with suicide precautions) for safety. The patient will participate in group, recreational, and milieu therapies and will be offered additional individual and family sessions as clinically appropriate. * Continue olanzapine 10mg po HS which was initiated on the medical floor * Fasting labwork in AM * Daily Hemoglobin, Cr, BUN per hospitalist recommendations * Consult hospitalist service if Hgb <8 OR Cr > 1.2 OR abnormal BUN * Continue Protonix qd and Iron MWF Inventory Assets Strengths: supportive family, lives independently, intelligent Needs: medication adjustments, improved insight into new medical condition, increased medical follow-up Suicide Risk Level Suicide Risk Level: Moderate (q15 min suicide checks) (he denies SI but is experiencing psychosis and rufina with poor insight and impairment judgment, he feels safe in the hospital) Risk Factors Assessment Male: Yes : Yes Do You Have Access To A Gun?: No Health Problems: Yes Mental Health Diagnoses: Yes Substance Use Disorders: Yes (in past) Previous Attempt: No Family History of Suicide: No Previous Psychiatric Hospitalization: Yes Hopelessness: No Protective Factors Assessment Jain Beliefs: Yes : No Responsible for Young Children: No Employed: No Stable Relationships: Yes Supportive Family: Yes Good Rapport with Provider: Yes Interval History Identifying Information DEWAYNE CALDERON is a 43-year-old man who currently lives in [place] alone, has a history of schizoaffective disorder, alcohol use disorder and nicotine use, and was admitted on 09/24/23 17:42 on a 303 involuntary commitment for psychosis with delusions impacting his ability to attend his medical needs including lack of insight into his recent severe GI bleed. Chief Complaint "Good". Review of Systems Sleep Information Total Hours of Sleep: 8.5 Meal Information Percent Meal Consumed - Breakfast: 100 Percent Meal Consumed - Lunch: 100 Percent Meal Consumed - Dinner: 100 Subjective Subjective Patient was seen & assessed and interval progress reviewed with treatment team nursing and social work. Reports good mood and feels he slept well. States he is not interested in considering an MARCIAL as he did this before and believes "that is too much medication all at once, it's too much". Discussed new MARCIAL options but he is not interested, prefers being on olanzapine. Last night was discussing having a broken leg but denies any pain related to this, rather was focused on exercises he needs to do for it. Ongoing somatic beliefs about how food impacts his bones and lungs. Remains focused on desire to not use tobacco products again. Physical Exam Psychiatric Orientation: alert and oriented x 3 Apperance: appropriately dressed and appropriately groomed Eye Contact: good eye contact Motor Behavior: no abnormal motor movements Speech: normal rate/rhythm/volume of speech Affect: euthymic affect Mood: no depressed mood, no anxious mood and no irritable mood Thought Process: + circumstantial thought process and + looseness of associations Thought Content: + preoccupation (ankle and legs and specific food items like jello) and + delusions (somatic) Suicidal Thoughts: denies suicidal thoughts Homicidal Thoughts: denies homicidal thoughts Hallucinations: no auditory hallucinations and no visual hallucinations Cognition: language grossly intact; + attention not intact Estimated Intelligence: consistent with education level Insight: + severely impaired insight Judgment: + limited judgement Vital Signs (Past 24 Hours) Last Vital Signs Temp 36.9 C 10/02/23 06:23 Pulse 80 10/02/23 06:24 Resp 18 10/02/23 06:23 BP 104/69 10/02/23 06:24 Pulse Ox 98 10/02/23 06:23 O2 Del Method Room Air 10/02/23 06:23 Results & Data ([facility]) Laboratory Results Laboratory Results - last 24 hr 10/02/23 07:08 Hgb 11.0 L Creatinine 0.83 Est Cr Clr Drug Dosing 129.6 Est GFR ( Amer) 123.2 Est GFR (Non-Af Amer) 106.3 Current Inpatient Medications Current Inpatient Medications: Current Inpatient Medications Acetaminophen (Acetaminophen 325 Mg Tab) 650 mg PO Q4H PRN PRN Reason: Headache or Minor Fever Stop: 10/24/23 17:12 Last Admin: 10/02/23 07:24 Dose: 650 mg Al Hydrox/Mg Hydrox/Simethicone (Aluminum/Magnesium Susp 30 Ml Udc) 30 ml PO Q4H PRN PRN Reason: GI Upset Stop: 10/24/23 17:12 Bismuth Subsalicylate (Bismuth Subsalicylate Liqd 236 Ml) 15 ml PO PRN PRN PRN Reason: Loose Stool Stop: 10/24/23 17:12 Ferrous Sulfate (Ferrous Sulfate 325 Mg Tab) 325 mg PO MoWeFr@0900 KELLEN Stop: 10/29/23 08:59 Last Admin: 10/01/23 08:16 Dose: 325 mg Hydroxyzine HCl (Hydroxyzine Hcl 25 Mg Tab) 50 mg PO HSZ PRN PRN Reason: Insomnia Stop: 10/24/23 17:12 Hydroxyzine HCl (Hydroxyzine Hcl 25 Mg Tab) 25 mg PO Q4H PRN PRN Reason: Anxiety Stop: 10/24/23 17:12 Magnesium Hydroxide (Magnesium Hydroxide Susp 30 Ml Udc) 30 ml PO DAILY PRN PRN Reason: Constipation Stop: 10/24/23 17:12 Miscellaneous (Remove Nicoderm Patch) 1 each N/A DAILY@0859 [facility] Stop: 10/25/23 08:58 Last Admin: 10/02/23 08:49 Dose: 1 each Nicotine (Nicotine 14 Mg/24 Hr Patch) 1 patch TD QAM KELLEN Stop: 11/01/23 08:59 Last Admin: 10/02/23 08:49 Dose: 1 patch Nicotine Polacrilex (Nicotine Polacrilex 2 Mg Gum) 2 piece MT PRN PRN PRN Reason: Nicotine Withdrawal Symptoms Stop: 10/24/23 17:12 Olanzapine (Olanzapine 20 Mg Tablet) 20 mg PO HS [facility] Stop: 10/30/23 21:59 Last Admin: 10/01/23 20:58 Dose: 20 mg Pantoprazole Sodium (Pantoprazole 40 Mg Tab) 40 mg PO BID KELLEN Stop: 10/24/23 20:59 Last Admin: 10/02/23 08:49 Dose: 40 mg Sodium Chloride (Sodium Chloride 0.65% Na Soln 45 Ml ([place]eyer)) 1 - 2 sprays NA PRN PRN PRN Reason: Nasal Dryness/Congestion Stop: 10/24/23 17:12 Thiamine HCl (Thiamine Hcl 100 Mg Tab) 500 mg PO QAM [facility] Stop: 10/25/23 08:59 Last Admin: 10/02/23 08:49 Dose: 500 mg Mental Health & Subst Abuse Tx Tiler Name of Tiler: Bella
[2023-10-03 07:50] LABS: Creatinine Clr Calc Pharmacy 119.5 ml/min; Est GFR (African American) 119.1 ml/min; Est GFR (Non-African American) 102.8 ml/min
--- NOTE | 2023-10-03 09:06 | Psychiatric Progress Note ---
Date of Service October 03, 2023 Impression / Recommendations Impression 43 year old man with recent GI bleed requiring blood transfusions, recent ankle pain taking large quantities of NSAIDs with a history of schizoaffective disorder who was admitted for psychosis with somatic delusions affecting his ability to manage his serious medical condition. Diagnostically seems most consistent with acute exacerbation of psychosis and rufina in setting of schizoaffective disorder. Appears to be sleeping a bit better since introduction of olanzapine but still with other symptoms of rufina and delusions. He requires psychiatric hospitalization for diagnostic clarification, safety and stabiliza tion, medication management and development of further coping skills. He is on a 303 commitment. MNPR due to psychosis and rufina, inability to tolerate a roommate 10/03/2023: Superficially appropriate but ongoing poor insight with any type of conversation about his health or recent medical issues or concerns about his outpatient adherence with appointments/follow-up. Still very poor insight into recent medical issues and alcohol use. Overall, I spent a total of 26 minutes on this case including meeting with the patient, reviewing the chart, nursing report, multidisciplinary team meeting, orders, and documentation. (1) Schizoaffective disorder: (2) Rufina: (3) Unspecified psychosis not due to a substance or known physiological condition: Plan 10/03/2023: Continue current medications and tx plan. 10/02/2023: Continue current medications and tx plan. 10/01/2023: Continue current medications and tx plan. 09/30/2023: Increase olanzapine to 20mg HS 09/29/2023: Continue current medications and tx plan. 09/28/2023: Continue current medications and tx plan. 09/27/2023: Increase olanzapine to 15mg HS 09/26/2023: Continue current medications and tx plan. 09/25/2023: The patient was admitted to the [facility] ([facility] mental health unit) on q15 min checks (behavioral with suicide precautions) for safety. The patient will participate in group, recreational, and milieu therapies and will be offered additional individual and family sessions as clinically appropriate. * Continue olanzapine 10mg po HS which was initiated on the medical floor * Fasting labwork in AM * Daily Hemoglobin, Cr, BUN per hospitalist recommendations * Consult hospitalist service if Hgb <8 OR Cr > 1.2 OR abnormal BUN * Continue Protonix qd and Iron MWF Inventory Assets Strengths: supportive family, lives independently, intelligent Needs: medication adjustments, improved insight into new medical condition, increased medical follow-up Suicide Risk Level Suicide Risk Level: Moderate (q15 min suicide checks) (he denies SI but is experiencing psychosis and rufina with poor insight and impairment judgment, he feels safe in the hospital) Risk Factors Assessment Male: Yes : Yes Do You Have Access To A Gun?: No Health Problems: Yes Mental Health Diagnoses: Yes Substance Use Disorders: Yes (in past) Previous Attempt: No Family History of Suicide: No Previous Psychiatric Hospitalization: Yes Hopelessness: No Protective Factors Assessment Confucianist Beliefs: Yes : No Responsible for Young Children: No Employed: No Stable Relationships: Yes Supportive Family: Yes Good Rapport with Provider: Yes Interval History Identifying Information DEWAYNE CALDERON is a 43-year-old man who currently lives in [place] alone, has a history of schizoaffective disorder, alcohol use disorder and nicotine use, and was admitted on 09/24/23 17:42 on a 303 involuntary commitment for psychosis with delusions impacting his ability to attend his medical needs including lack of insight into his recent severe GI bleed. Chief Complaint "doing great". Review of Systems Sleep Information Total Hours of Sleep: 8.15 Meal Information Percent Meal Consumed - Breakfast: 100 Percent Meal Consumed - Lunch: 100 Percent Meal Consumed - Dinner: 100 Subjective Subjective Patient was seen & assessed and interval progress reviewed with treatment team nursing and social work.Reports good mood and enjoys attending groups. Asked about his willingness to attend outpatient medical appointments he is adamantly opposed. Speaks of delusions related to how his hemoglobin is low due to his past cigar use. When challenged further on his tarry stools he states his esophagus is connected to his lungs and therefore any tarry stools came from his lungs. At one point starts discussing "seizure is in between buy and going to buy" and repeats this multiple times. Makes a comment about having "too much weight inside" and that "No eating for 10 days". Physical Exam Psychiatric Orientation: alert and oriented x 3 Apperance: appropriately dressed and appropriately groomed Eye Contact: good eye contact Motor Behavior: no abnormal motor movements Speech: normal rate/rhythm/volume of speech Affect: euthymic affect Mood: no depressed mood, no anxious mood and no irritable mood Thought Process: + circumstantial thought process and + looseness of associations Thought Content: + preoccupation (ankle and legs and specific food items like jello) and + delusions (somatic) Suicidal Thoughts: denies suicidal thoughts Homicidal Thoughts: denies homicidal thoughts Hallucinations: no auditory hallucinations and no visual hallucinations Cognition: language grossly intact; + attention not intact Estimated Intelligence: consistent with education level Insight: + severely impaired insight Judgment: + limited judgement Vital Signs (Past 24 Hours) Last Vital Signs Temp 36.2 C L 10/03/23 06:00 Pulse 98 H 10/03/23 06:35 Resp 16 10/03/23 06:00 BP 114/56 L 10/03/23 06:35 Pulse Ox 98 10/02/23 06:23 O2 Del Method Room Air 10/02/23 06:23 Results & Data ([facility]) Laboratory Results Laboratory Results - last 24 hr 10/03/23 07:08 Hgb 12.0 L Creatinine 0.90 Est Cr Clr Drug Dosing 119.5 Est GFR ( Amer) 119.1 Est GFR (Non-Af Amer) 102.8 Current Inpatient Medications Current Inpatient Medications: Current Inpatient Medications Acetaminophen (Acetaminophen 325 Mg Tab) 650 mg PO Q4H PRN PRN Reason: Headache or Minor Fever Stop: 10/24/23 17:12 Last Admin: 10/02/23 15:54 Dose: 650 mg Al Hydrox/Mg Hydrox/Simethicone (Aluminum/Magnesium Susp 30 Ml Udc) 30 ml PO Q4H PRN PRN Reason: GI Upset Stop: 10/24/23 17:12 Bismuth Subsalicylate (Bismuth Subsalicylate Liqd 236 Ml) 15 ml PO PRN PRN PRN Reason: Loose Stool Stop: 10/24/23 17:12 Ferrous Sulfate (Ferrous Sulfate 325 Mg Tab) 325 mg PO MoWeFr@0900 KELLEN Stop: 10/29/23 08:59 Last Admin: 10/03/23 08:10 Dose: 325 mg Hydroxyzine HCl (Hydroxyzine Hcl 25 Mg Tab) 50 mg PO HSZ PRN PRN Reason: Insomnia Stop: 10/24/23 17:12 Hydroxyzine HCl (Hydroxyzine Hcl 25 Mg Tab) 25 mg PO Q4H PRN PRN Reason: Anxiety Stop: 10/24/23 17:12 Magnesium Hydroxide (Magnesium Hydroxide Susp 30 Ml Udc) 30 ml PO DAILY PRN PRN Reason: Constipation Stop: 10/24/23 17:12 Miscellaneous (Remove Nicoderm Patch) 1 each N/A DAILY@0859 [facility] Stop: 10/25/23 08:58 Last Admin: 10/03/23 08:09 Dose: 1 each Nicotine (Nicotine 14 Mg/24 Hr Patch) 1 patch TD QAM [facility] Stop: 11/01/23 08:59 Last Admin: 10/03/23 08:09 Dose: 1 patch Nicotine Polacrilex (Nicotine Polacrilex 2 Mg Gum) 2 piece MT PRN PRN PRN Reason: Nicotine Withdrawal Symptoms Stop: 10/24/23 17:12 Olanzapine (Olanzapine 20 Mg Tablet) 20 mg PO HS [facility] Stop: 10/30/23 21:59 Last Admin: 10/02/23 20:41 Dose: 20 mg Pantoprazole Sodium (Pantoprazole 40 Mg Tab) 40 mg PO BID KELLEN Stop: 10/24/23 20:59 Last Admin: 10/03/23 08:09 Dose: 40 mg Sodium Chloride (Sodium Chloride 0.65% Na Soln 45 Ml ([place])) 1 - 2 sprays NA PRN PRN PRN Reason: Nasal Dryness/Congestion Stop: 10/24/23 17:12 Thiamine HCl (Thiamine Hcl 100 Mg Tab) 500 mg PO QAM [facility] Stop: 10/25/23 08:59 Last Admin: 10/03/23 08:09 Dose: 500 mg Mental Health & Subst Abuse Tx Copier Operator Name of Copier Operator: Bella
[2023-10-04 07:40] LABS: Creatinine Clr Calc Pharmacy 109.7 ml/min; Est GFR (African American) 107.5 ml/min; Est GFR (Non-African American) 92.7 ml/min
--- NOTE | 2023-10-04 13:24 | Psychiatric Progress Note ---
Date of Service October 04, 2023 Impression / Recommendations Impression 43 year old man with schizoaffective disorder and recent GI bleed requiring blood transfusions. Appears to be responding well to the recent changes in his medications. Somatic delusions appear to be fixed/crystalized. He is sleeping a bit better. He requires psychiatric hospitalization for diagnostic clarification, safety and stabilization, medication management and development of further coping skills. He is on a 303 commitment. MNPR due to psychosis and rufina, inability to tolerate a roommate 10/03/2023: Superficially appropriate but ongoing poor insight with any type of conversation about his health or recent medical issues or concerns about his outpatient adherence with appointments/follow-up. Still very poor insight into recent medical issues and alcohol use. Overall, I spent a total of 28 minutes on this case including meeting with the patient, reviewing the chart, nursing report, multidisciplinary team meeting, orders, and documentation. (1) Schizoaffective disorder: Plan 10/04/2023: -Continued inpatient hospitalization is medically necessary for ongoing monitoring and safety. -Continue medications without changes. -Monitor mood and delusions. 10/02/2023: Continue current medications and tx plan. 10/01/2023: Continue current medications and tx plan. 09/30/2023: Increase olanzapine to 20mg HS 09/29/2023: Continue current medications and tx plan. 09/28/2023: Continue current medications and tx plan. 09/27/2023: Increase olanzapine to 15mg HS 09/26/2023: Continue current medications and tx plan. 09/25/2023: The patient was admitted to the [facility] ([facility] mental health unit) on q15 min checks (behavioral with suicide precautions) for safety. The patient will participate in group, recreational, and milieu therapies and will be offered additional individual and family sessions as clinically appropriate. * Continue olanzapine 10mg po HS which was initiated on the medical floor * Fasting labwork in AM * Daily Hemoglobin, Cr, BUN per hospitalist recommendations * Consult hospitalist service if Hgb <8 OR Cr > 1.2 OR abnormal BUN * Continue Protonix qd and Iron MWF Inventory Assets Strengths: supportive family, lives independently, intelligent Needs: medication adjustments, improved insight into new medical condition, increased medical follow-up Suicide Risk Level Suicide Risk Level: Moderate (q15 min suicide checks) (he denies SI but is experiencing psychosis and rufina with poor insight and impairment judgment, he feels safe in the hospital) Risk Factors Assessment Male: Yes : Yes Do You Have Access To A Gun?: No Health Problems: Yes Mental Health Diagnoses: Yes Substance Use Disorders: Yes (in past) Previous Attempt: No Family History of Suicide: No Previous Psychiatric Hospitalization: Yes Hopelessness: No Protective Factors Assessment Anabaptism Beliefs: Yes : No Responsible for Young Children: No Employed: No Stable Relationships: Yes Supportive Family: Yes Good Rapport with Provider: Yes Interval History Identifying Information JULES CALDERON is a 43-year-old man who currently lives in [place] alone, has a history of schizoaffective disorder, alcohol use disorder and nicotine use, and was admitted on 09/24/23 17:42 on a 303 involuntary commitment for psychosis with delusions impacting his ability to attend his medical needs including lack of insight into his recent severe GI bleed. Chief Complaint "Everything is great". Review of Systems Notes Constitutional: Denies fatigue Cardiovascular: Denies palpitations denies, chest pain Gastrointestinal: Reported the most recent bowel movement was yesterday "everything was normal" denies active bleeding. Neurological: Denies dizziness Sleep Information Total Hours of Sleep: 8 Meal Information Percent Meal Consumed - Breakfast: 100 Percent Meal Consumed - Lunch: 100 Percent Meal Consumed - Dinner: 100 Subjective Subjective Patient was seen & assessed and interval progress reviewed with nursing and social work. During our session today Jules reported that he has been feeling well. He stated that his current medications are helpful in improving his sleep and his level of comfort. He denied daytime sedation. When asked about his appetite he stated "my appetite is perfect" When discussing the reasons for his admission, Jules explained "all I had was tar in the stool I do not have anything like a bleed I just came in for a seizure 1 day. My levels are back up. I was smoking a lot." Physical Exam Psychiatric Orientation: alert, oriented to person, oriented to place and cooperative Apperance: appropriately dressed Evasive Motor Behavior: steady gait and station Speech: normal rate/rhythm/volume of speech Affect: euthymic affect Mood: no depressed mood, no anxious mood and no irritable mood Thought Process: + circumstantial thought process, + looseness of associations and + confabulations Thought Content: + delusions Suicidal Thoughts: denies suicidal thoughts Homicidal Thoughts: denies homicidal thoughts Hallucinations: no auditory hallucinations and no visual hallucinations Cognition: language grossly intact Estimated Intelligence: consistent with education level Insight: + severely impaired insight Judgment: + limited judgement Jules is agreeable to continue treatment after his release from the hospital and has expressed interest in continuing working with his embedded case manager and mobile psychiatric team. Vital Signs (Past 24 Hours) Last Vital Signs Temp 36.6 C 10/04/23 06:33 Pulse 85 10/04/23 06:34 Resp 16 10/04/23 06:33 BP 105/67 10/04/23 06:34 Pulse Ox 98 10/02/23 06:23 O2 Del Method Room Air 10/02/23 06:23 Results & Data ([facility]) Laboratory Results Laboratory Results - last 24 hr 10/04/23 06:59 Hgb 11.6 L Creatinine 0.98 Est Cr Clr Drug Dosing 109.7 Est GFR ( Amer) 107.5 Est GFR (Non-Af Amer) 92.7 Current Inpatient Medications Current Inpatient Medications: Current Inpatient Medications Acetaminophen (Acetaminophen 325 Mg Tab) 650 mg PO Q4H PRN PRN Reason: Headache or Minor Fever Stop: 10/24/23 17:12 Last Admin: 10/04/23 08:57 Dose: 650 mg Al Hydrox/Mg Hydrox/Simethicone (Aluminum/Magnesium Susp 30 Ml Udc) 30 ml PO Q4H PRN PRN Reason: GI Upset Stop: 10/24/23 17:12 Bismuth Subsalicylate (Bismuth Subsalicylate Liqd 236 Ml) 15 ml PO PRN PRN PRN Reason: Loose Stool Stop: 10/24/23 17:12 Ferrous Sulfate (Ferrous Sulfate 325 Mg Tab) 325 mg PO MoWeFr@0900 KELLEN Stop: 10/29/23 08:59 Last Admin: 10/03/23 08:10 Dose: 325 mg Hydroxyzine HCl (Hydroxyzine Hcl 25 Mg Tab) 50 mg PO HSZ PRN PRN Reason: Insomnia Stop: 10/24/23 17:12 Hydroxyzine HCl (Hydroxyzine Hcl 25 Mg Tab) 25 mg PO Q4H PRN PRN Reason: Anxiety Stop: 10/24/23 17:12 Magnesium Hydroxide (Magnesium Hydroxide Susp 30 Ml Udc) 30 ml PO DAILY PRN PRN Reason: Constipation Stop: 10/24/23 17:12 Miscellaneous (Remove Nicoderm Patch) 1 each N/A DAILY@0859 [facility] Stop: 10/25/23 08:58 Last Admin: 10/04/23 08:27 Dose: 1 each Nicotine (Nicotine 14 Mg/24 Hr Patch) 1 patch TD QAM [facility] Stop: 11/01/23 08:59 Last Admin: 10/04/23 07:08 Dose: 1 patch Nicotine Polacrilex (Nicotine Polacrilex 2 Mg Gum) 2 piece MT PRN PRN PRN Reason: Nicotine Withdrawal Symptoms Stop: 10/24/23 17:12 Olanzapine (Olanzapine 20 Mg Tablet) 20 mg PO HS [facility] Stop: 10/30/23 21:59 Last Admin: 10/03/23 20:40 Dose: 20 mg Pantoprazole Sodium (Pantoprazole 40 Mg Tab) 40 mg PO BID [facility] Stop: 10/24/23 20:59 Last Admin: 10/04/23 07:08 Dose: 40 mg Sodium Chloride (Sodium Chloride 0.65% Na Soln 45 Ml ([place])) 1 - 2 sprays NA PRN PRN PRN Reason: Nasal Dryness/Congestion Stop: 10/24/23 17:12 Thiamine HCl (Thiamine Hcl 100 Mg Tab) 500 mg PO QAM [facility] Stop: 10/25/23 08:59 Last Admin: 10/04/23 07:08 Dose: 500 mg Mental Health & Subst Abuse Tx [employer] Name of [employer]: Bella (1) Schizoaffective disorder Schizoaffective disorder type: unspecified Qualified Code(s): F25.9 - Schizoaffective disorder, unspecified
--- NOTE | 2023-10-05 15:45 | Psychiatric Progress Note ---
Date of Service October 05, 2023 Impression / Recommendations Impression 43 year old man with schizoaffective disorder and recent GI bleed requiring blood transfusions. Appears to be responding well to the recent changes in his medications. Somatic delusions appear to be fixed/crystalized. He is sleeping a bit better. He requires psychiatric hospitalization for diagnostic clarification, safety and stabilization, medication management and development of further coping skills. He is on a 303 commitment. Remains delusional with slightly improved in terms of openness to treatment recommendations. Overall, I spent a total of 25minutes on this case including meeting with the patient, reviewing the chart, nursing report, multidisciplinary team meeting, orders, and documentation. (1) Schizoaffective disorder: Plan 10/05/2023: -Continued inpatient hospitalization is medically necessary for ongoing monitoring and safety. -Continue OLZ 20mg po HS -Monitor mood and delusions. -Continue monitoring Hb level 10/04/2023: -Continued inpatient hospitalization is medically necessary for ongoing monitoring and safety. -Continue medications without changes. -Monitor mood and delusions. 10/03/2023: Superficially appropriate but ongoing poor insight with any type of conversation about his health or recent medical issues or concerns about his outpatient adherence with appointments/follow-up. Still very poor insight into recent medical issues and alcohol use. 10/02/2023: Continue current medications and tx plan. 10/01/2023: Continue current medications and tx plan. 09/30/2023: Increase olanzapine to 20mg HS 09/29/2023: Continue current medications and tx plan. 09/28/2023: Continue current medications and tx plan. 09/27/2023: Increase olanzapine to 15mg HS 09/26/2023: Continue current medications and tx plan. 09/25/2023: The patient was admitted to the [facility] ([facility] unit) on q15 min checks (behavioral with suicide precautions) for safety. The patient will participate in group, recreational, and milieu therapies and will be offered additional individual and family sessions as clinically appropriate. * Continue olanzapine 10mg po HS which was initiated on the medical floor * Fasting labwork in AM * Daily Hemoglobin, Cr, BUN per hospitalist recommendations * Consult hospitalist service if Hgb <8 OR Cr > 1.2 OR abnormal BUN * Continue Protonix qd and Iron MWF Inventory Assets Strengths: supportive family, lives independently, intelligent Needs: medication adjustments, improved insight into new medical condition, increased medical follow-up Suicide Risk Level Suicide Risk Level: Moderate (q15 min suicide checks) (he denies SI but is experiencing psychosis and rufina with poor insight and impairment judgment, he feels safe in the hospital) Risk Factors Assessment Male: Yes : Yes Do You Have Access To A Gun?: No Health Problems: Yes Mental Health Diagnoses: Yes Substance Use Disorders: Yes (in past) Previous Attempt: No Family History of Suicide: No Previous Psychiatric Hospitalization: Yes Hopelessness: No Protective Factors Assessment Christianity Beliefs: Yes : No Responsible for Young Children: No Employed: No Stable Relationships: Yes Supportive Family: Yes Good Rapport with Provider: Yes Interval History Identifying Information DEWAYNE CALDERON is a 43-year-old man who currently lives in [place] alone, has a history of schizoaffective disorder, alcohol use disorder and nicotine use, and was admitted on 09/24/23 17:42 on a 303 involuntary commitment for psychosis with delusions impacting his ability to attend his medical needs including lack of insight into his recent severe GI bleed. Chief Complaint "I am doing pretty good" Review of Systems Sleep Information Total Hours of Sleep: 6.5 Meal Information Percent Meal Consumed - Breakfast: 100 Percent Meal Consumed - Lunch: 75 Percent Meal Consumed - Dinner: 100 Subjective Subjective Patient was seen & assessed and interval progress reviewed with nursing. Patient was interview well pacing around the unit he did not want to stop for the conversation. Stated that he is feeling "pretty good" and declined to have an extended conversation. Patient informed me that the medication (olanzapine) is working well and denied side effects. He continues to express fixed delusions regarding the origin of his anemia but is aware of the need of CBC follow-up to monitor the hemoglobin level and is agreeable to have serial labs for this purpose. On exam he is dressed appropriately but malodorous. There is no evidence of agitation or aggressive behavior. Physical Exam Psychiatric Orientation: alert, oriented x 3, oriented to person, oriented to place and cooperative Apperance: appropriately dressed, appropriately groomed and + disheveled Eye Contact: good eye contact Motor Behavior: steady gait and station and no abnormal motor movements Speech: + loud speech and normal rate/rhythm/volume of speech Affect: euthymic affect Mood: no depressed mood, no anxious mood and no irritable mood Thought Process: + circumstantial thought process, + tangential thought process, + flight of ideas, + looseness of associations and + confabulations Thought Content: + preoccupation (ankle and legs and specific food items like jello), + paranoid and + delusions Suicidal Thoughts: denies suicidal thoughts Homicidal Thoughts: denies homicidal thoughts Hallucinations: no auditory hallucinations and no visual hallucinations Cognition: language grossly intact; + attention not intact Estimated Intelligence: consistent with education level Insight: + severely impaired insight Judgment: + limited judgement Vital Signs (Past 24 Hours) Last Vital Signs Temp 36.4 C L 10/05/23 06:34 Pulse 88 10/05/23 06:35 Resp 16 10/05/23 06:34 BP 102/70 10/05/23 06:35 Pulse Ox 98 10/02/23 06:23 O2 Del Method Room Air 10/02/23 06:23 Results & Data ([facility]) Laboratory Results Laboratory Results - last 24 hr 10/05/23 11:21 Hgb 11.9 L Current Inpatient Medications Current Inpatient Medications: Current Inpatient Medications Acetaminophen (Acetaminophen 325 Mg Tab) 650 mg PO Q4H PRN PRN Reason: Headache or Minor Fever Stop: 10/24/23 17:12 Last Admin: 10/05/23 15:15 Dose: 650 mg Al Hydrox/Mg Hydrox/Simethicone (Aluminum/Magnesium Susp 30 Ml Udc) 30 ml PO Q4H PRN PRN Reason: GI Upset Stop: 10/24/23 17:12 Bismuth Subsalicylate (Bismuth Subsalicylate Liqd 236 Ml) 15 ml PO PRN PRN PRN Reason: Loose Stool Stop: 10/24/23 17:12 Ferrous Sulfate (Ferrous Sulfate 325 Mg Tab) 325 mg PO MoWeFr@0900 KELL[facility] Stop: 10/29/23 08:59 Last Admin: 10/03/23 08:10 Dose: 325 mg Hydroxyzine HCl (Hydroxyzine Hcl 25 Mg Tab) 50 mg PO HSZ PRN PRN Reason: Insomnia Stop: 10/24/23 17:12 Hydroxyzine HCl (Hydroxyzine Hcl 25 Mg Tab) 25 mg PO Q4H PRN PRN Reason: Anxiety Stop: 10/24/23 17:12 Magnesium Hydroxide (Magnesium Hydroxide Susp 30 Ml Udc) 30 ml PO DAILY PRN PRN Reason: Constipation Stop: 10/24/23 17:12 Miscellaneous (Remove Nicoderm Patch) 1 each N/A DAILY@0859 [facility] Stop: 10/25/23 08:58 Last Admin: 10/05/23 09:13 Dose: Not Given Nicotine (Nicotine 14 Mg/24 Hr Patch) 1 patch TD QAM [facility] Stop: 11/01/23 08:59 Last Admin: 10/05/23 09:07 Dose: 1 patch Nicotine Polacrilex (Nicotine Polacrilex 2 Mg Gum) 2 piece MT PRN PRN PRN Reason: Nicotine Withdrawal Symptoms Stop: 10/24/23 17:12 Olanzapine (Olanzapine 20 Mg Tablet) 20 mg PO HS [facility] Stop: 10/30/23 21:59 Last Admin: 10/04/23 21:02 Dose: 20 mg Pantoprazole Sodium (Pantoprazole 40 Mg Tab) 40 mg PO BID [facility] Stop: 10/24/23 20:59 Last Admin: 10/05/23 09:02 Dose: 40 mg Sodium Chloride (Sodium Chloride 0.65% Na Soln 45 Ml ([place])) 1 - 2 sprays NA PRN PRN PRN Reason: Nasal Dryness/Congestion Stop: 10/24/23 17:12 Thiamine HCl (Thiamine Hcl 100 Mg Tab) 500 mg PO QAM [facility] Stop: 10/25/23 08:59 Last Admin: 10/05/23 09:02 Dose: 500 mg Mental Health & Subst Abuse Tx Hotel [employer]creational Facilities Manager Name of Hotel [employer]creational Facilities Manager: Bella (1) Schizoaffective disorder Schizoaffective disorder type: unspecified Qualified Code(s): F25.9 - Schizoaffective disorder, unspecified
--- NOTE | 2023-10-06 14:33 | Psychiatric Progress Note ---
Date of Service October 06, 2023 Impression / Recommendations Impression 43 year old man with schizoaffective disorder and recent GI bleed requiring blood transfusions. Appears to be responding well to the recent changes in his medications. Somatic delusions appear to be fixed/crystalized. He is sleeping a bit better. He requires psychiatric hospitalization for diagnostic clarification, safety and stabilization, medication management and development of further coping skills. He is on a 303 commitment. Appears to be approaching baseline. Overall, I spent a total of 28 minutes on this case including meeting with the patient, reviewing the chart, nursing report, multidisciplinary team meeting, orders, and documentation. (1) Schizoaffective disorder: Plan 10/06/2023: -Continued inpatient hospitalization is medically necessary for ongoing monitoring and safety. -Encourage daily shower -Continue OLZ 20mg po HS -Monitor mood and delusions. -Continue monitoring Hb level 10/05/2023: -Continued inpatient hospitalization is medically necessary for ongoing monitoring and safety. -Continue OLZ 20mg po HS -Monitor mood and delusions. -Continue monitoring Hb level 10/04/2023: -Continued inpatient hospitalization is medically necessary for ongoing monitoring and safety. -Continue medications without changes. -Monitor mood and delusions. 10/03/2023: Superficially appropriate but ongoing poor insight with any type of conversation about his health or recent medical issues or concerns about his outpatient adherence with appointments/follow-up. Still very poor insight into recent medical issues and alcohol use. 10/02/2023: Continue current medications and tx plan. 10/01/2023: Continue current medications and tx plan. 09/30/2023: Increase olanzapine to 20mg HS 09/29/2023: Continue current medications and tx plan. 09/28/2023: Continue current medications and tx plan. 09/27/2023: Increase olanzapine to 15mg HS 09/26/2023: Continue current medications and tx plan. 09/25/2023: The patient was admitted to the [facility] ([facility] mental health unit) on q15 min checks (behavioral with suicide precautions) for safety. The patient will participate in group, recreational, and milieu therapies and will be offered additional individual and family sessions as clinically appropriate. * Continue olanzapine 10mg po HS which was initiated on the medical floor * Fasting labwork in AM * Daily Hemoglobin, Cr, BUN per hospitalist recommendations * Consult hospitalist service if Hgb <8 OR Cr > 1.2 OR abnormal BUN * Continue Protonix qd and Iron MWF Inventory Assets Strengths: supportive family, lives independently, intelligent Needs: medication adjustments, improved insight into new medical condition, increased medical follow-up Suicide Risk Level Suicide Risk Level: Moderate (q15 min suicide checks) (he denies SI but is experiencing psychosis and rufina with poor insight and impairment judgment, he feels safe in the hospital) Risk Factors Assessment Male: Yes : Yes Do You Have Access To A Gun?: No Health Problems: Yes Mental Health Diagnoses: Yes Substance Use Disorders: Yes (in past) Previous Attempt: No Family History of Suicide: No Previous Psychiatric Hospitalization: Yes Hopelessness: No Protective Factors Assessment Jewish Beliefs: Yes : No Responsible for Young Children: No Employed: No Stable Relationships: Yes Supportive Family: Yes Good Rapport with Provider: Yes Interval History Identifying Information DEWAYNE CALDERON is a 43-year-old man who currently lives in [place] alone, has a history of schizoaffective disorder, alcohol use disorder and nicotine use, and was admitted on 09/24/23 17:42 on a 303 involuntary commitment for psychosis with delusions impacting his ability to attend his medical needs including lack of insight into his recent severe GI bleed. Chief Complaint "I am great". Review of Systems Sleep Information Total Hours of Sleep: 6.5 Meal Information Percent Meal Consumed - Breakfast: 100 Percent Meal Consumed - Lunch: 100 Percent Meal Consumed - Dinner: 100 Subjective Subjective Patient was seen & assessed and interval progress reviewed with nursing and treatment team. Patient evaluated at the MD office in [facility]. He was extremely malodorous but appropriately dressed. Patient indicated he is committed to stop smoking (continues to believe that heavy smoking because the excretion of lady through the feces and that this was "confused" with blood/GI bleeding). Patient reported, feeling rested upon awakening, good mood, normal appetite, normal level of energy. Hemoglobin level stable. Denied bleeding. Physical Exam Psychiatric Orientation: alert, oriented x 3, oriented to person, oriented to place and cooperative Apperance: appropriately dressed, appropriately groomed and + disheveled Eye Contact: good eye contact Motor Behavior: steady gait and station and no abnormal motor movements Speech: normal rate/rhythm/volume of speech Affect: euthymic affect, + labile affect and + elated affect Mood: no depressed mood, no anxious mood and no irritable mood Thought Process: + circumstantial thought process and + confabulations Thought Content: + preoccupation and + delusions Suicidal Thoughts: denies suicidal thoughts Homicidal Thoughts: denies homicidal thoughts Hallucinations: no auditory hallucinations and no visual hallucinations Cognition: language grossly intact Estimated Intelligence: consistent with education level Insight: + severely impaired insight Judgment: + limited judgement Vital Signs (Past 24 Hours) Last Vital Signs Temp 36.5 C 10/06/23 06:35 Pulse 85 10/06/23 06:36 Resp 16 10/06/23 06:35 BP 108/72 10/06/23 06:36 Pulse Ox 98 10/02/23 06:23 O2 Del Method Room Air 10/02/23 06:23 Results & Data ([facility]) Laboratory Results Laboratory Results - last 24 hr 10/06/23 11:31 Hgb 11.7 L Current Inpatient Medications Current Inpatient Medications: Current Inpatient Medications Acetaminophen (Acetaminophen 325 Mg Tab) 650 mg PO Q4H PRN PRN Reason: Headache or Minor Fever Stop: 10/24/23 17:12 Last Admin: 10/05/23 15:15 Dose: 650 mg Al Hydrox/Mg Hydrox/Simethicone (Aluminum/Magnesium Susp 30 Ml Udc) 30 ml PO Q4H PRN PRN Reason: GI Upset Stop: 10/24/23 17:12 Bismuth Subsalicylate (Bismuth Subsalicylate Liqd 236 Ml) 15 ml PO PRN PRN PRN Reason: Loose Stool Stop: 10/24/23 17:12 Ferrous Sulfate (Ferrous Sulfate 325 Mg Tab) 325 mg PO MoWeFr@0900 [facility] Stop: 10/29/23 08:59 Last Admin: 10/06/23 08:38 Dose: 325 mg Hydroxyzine HCl (Hydroxyzine Hcl 25 Mg Tab) 50 mg PO HSZ PRN PRN Reason: Insomnia Stop: 10/24/23 17:12 Hydroxyzine HCl (Hydroxyzine Hcl 25 Mg Tab) 25 mg PO Q4H PRN PRN Reason: Anxiety Stop: 10/24/23 17:12 Magnesium Hydroxide (Magnesium Hydroxide Susp 30 Ml Udc) 30 ml PO DAILY PRN PRN Reason: Constipation Stop: 10/24/23 17:12 Miscellaneous (Remove Nicoderm Patch) 1 each N/A DAILY@0859 [facility] Stop: 10/25/23 08:58 Last Admin: 10/06/23 09:12 Dose: 1 each Nicotine (Nicotine 14 Mg/24 Hr Patch) 1 patch TD QAM [facility] Stop: 11/01/23 08:59 Last Admin: 10/06/23 09:12 Dose: 1 patch Nicotine Polacrilex (Nicotine Polacrilex 2 Mg Gum) 2 piece MT PRN PRN PRN Reason: Nicotine Withdrawal Symptoms Stop: 10/24/23 17:12 Olanzapine (Olanzapine 20 Mg Tablet) 20 mg PO HS [facility] Stop: 10/30/23 21:59 Last Admin: 10/05/23 21:02 Dose: 20 mg Pantoprazole Sodium (Pantoprazole 40 Mg Tab) 40 mg PO BID [facility] Stop: 10/24/23 20:59 Last Admin: 10/06/23 08:39 Dose: 40 mg Sodium Chloride (Sodium Chloride 0.65% Na Soln 45 Ml ([place])) 1 - 2 sprays NA PRN PRN PRN Reason: Nasal Dryness/Congestion Stop: 10/24/23 17:12 Thiamine HCl (Thiamine Hcl 100 Mg Tab) 500 mg PO QAM [facility] Stop: 10/25/23 08:59 Last Admin: 10/06/23 08:39 Dose: 500 mg Mental Health & Subst Abuse Tx Psychiatrist Name of Psychiatrist: Edilberto Aguirre Psychiatrist's Date Of Appointment With Psychiatric Provider: 10/15/2023 Time of Appointment with Psychiatrist: 10:30am Psychiatric Appointment Comment: [address] [place] [address] Lumber Handler Name of Lumber Handler: Bella Phone Number for Lumber Handler: [phone] Case Management Appointment Comment: [facility]CM will meet you at your home Post Discharge Appointments Primary Care Physician Name Of Family Doctor/PCP: Edilberto Connell Primary Care Date of Future Appointment with PCP: 10/15/2023 Time of Appointment with PCP: 8:40am Provider Appointment Comment: [address] [place] [address] Partial or Psych Rehab Name of Partial or Psych Rehab: [facility]- [facility] (1) Schizoaffective disorder Schizoaffective disorder type: unspecified Qualified Code(s): F25.9 - Schizoaffective disorder, unspecified
--- NOTE | 2023-10-07 17:50 | Psychiatric Progress Note ---
Date of Service October 07, 2023 Impression / Recommendations Impression 43 year old man with schizoaffective disorder and recent GI bleed requiring blood transfusions. Appears to be responding well to the recent changes in his medications. Somatic delusions appear to be fixed/crystalized. He is sleeping a bit better. He requires psychiatric hospitalization for diagnostic clarification, safety and stabilization, medication management and development of further coping skills. He is on a 303 commitment. Is showing improvement in self-care. Appears to be approaching baseline. Overall, I spent a total of 28 minutes on this case including meeting with the patient, reviewing the chart, nursing report, multidisciplinary team meeting, orders, and documentation. (1) Schizoaffective disorder: Plan 10/07/2023: -Appears to be approaching baseline. Coordination of care to transition to the community is being done. Continued inpatient hospitalization is medically necessary for ongoing monitoring and safety. Preparing for discharge soon. -Continue OLZ 20mg po HS -Monitor mood and delusions. -Continue monitoring Hb level 10/06/2023: -Continued inpatient hospitalization is medically necessary for ongoing monitoring and safety. -Encourage daily shower -Continue OLZ 20mg po HS -Monitor mood and delusions. -Continue monitoring Hb level 10/05/2023: -Continued inpatient hospitalization is medically necessary for ongoing monit oring and safety. -Continue OLZ 20mg po HS -Monitor mood and delusions. -Continue monitoring Hb level 10/04/2023: -Continued inpatient hospitalization is medically necessary for ongoing monitoring and safety. -Continue medications without changes. -Monitor mood and delusions. 10/03/2023: Superficially appropriate but ongoing poor insight with any type of conversation about his health or recent medical issues or concerns about his outpatient adherence with appointments/follow-up. Still very poor insight into recent medical issues and alcohol use. 10/02/2023: Continue current medications and tx plan. 10/01/2023: Continue current medications and tx plan. 09/30/2023: Increase olanzapine to 20mg HS 09/29/2023: Continue current medications and tx plan. 09/28/2023: Continue current medications and tx plan. 09/27/2023: Increase olanzapine to 15mg HS 09/26/2023: Continue current medications and tx plan. 09/25/2023: The patient was admitted to the [facility] (locked inpatient mental healt h unit) on q15 min checks (behavioral with suicide precautions) for safety. The patient will participate in group, recreational, and milieu therapies and will be offered additional individual and family sessions as clinically appropriate. * Continue olanzapine 10mg po HS which was initiated on the medical floor * Fasting labwork in AM * Daily Hemoglobin, Cr, BUN per hospitalist recommendations * Consult hospitalist service if Hgb <8 OR Cr > 1.2 OR abnormal BUN * Continue Protonix qd and Iron MWF Inventory Assets Strengths: supportive family, lives independently, intelligent Needs: medication adjustments, improved insight into new medical condition, increased medical follow-up Suicide Risk Level Suicide Risk Level: Moderate (q15 min suicide checks) (he denies SI but is experiencing psychosis and rufina with poor insight and impairment judgment, he feels safe in the hospital) Risk Factors Assessment Male: Yes : Yes Do You Have Access To A Gun?: No Health Problems: Yes Mental Health Diagnoses: Yes Substance Use Disorders: Yes (in past) Previous Attempt: No Family History of Suicide: No Previous Psychiatric Hospitalization: Yes Hopelessness: No Protective Factors Assessment Orthodoxy Beliefs: Yes : No Responsible for Young Children: No Employed: No Stable Relationships: Yes Supportive Family: Yes Good Rapport with Provider: Yes Interval History Identifying Information DEWAYNE CALDERON is a 43-year-old man who currently lives in [place] alone, has a history of schizoaffective disorder, alcohol use disorder and nicotine use, and was admitted on 09/24/23 17:42 on a 303 involuntary commitment for psychosis with delusions impacting his ability to attend his medical needs including lack of insight into his recent severe GI bleed. Chief Complaint "I feel pretty great". Review of Systems Sleep Information Total Hours of Sleep: 6 Sleep Comments: Scheduled HS Zyprexa Meal Information Percent Meal Consumed - Breakfast: 100 Percent Meal Consumed - Lunch: 100 Percent Meal Consumed - Dinner: 100 Subjective Subjective Patient was seen & assessed and interval progress reviewed with treatment team,nursing and social work. Patient has been showing improvement in self-care. He is showering. Today appears clean and neat. Reported he is sleeping well and has good appetite. He has been attentive at getting the monitoring labs for his hemoglobin. He is less prone to bringing up spontaneously the delusions about the cigarettes lady in connection to the previous GI bleeding. The thoughts are still present if asked directly about that. Patient is aware that a family meeting will be conducted tomorrow with his mother. Physical Exam Psychiatric Orientation: alert, oriented x 3, oriented to person, oriented to place and co operative Apperance: appropriately dressed and appropriately groomed (freshly showered) Eye Contact: good eye contact Motor Behavior: steady gait and station and no abnormal motor movements Speech: normal rate/rhythm/volume of speech Affect: euthymic affect Mood: no depressed mood, no anxious mood and no irritable mood Thought Process: + circumstantial thought process Thought Content: + delusions (fixed false belief related to his health) Suicidal Thoughts: denies suicidal thoughts Homicidal Thoughts: denies homicidal thoughts Hallucinations: no auditory hallucinations and no visual hallucinations Cognition: language grossly intact Estimated Intelligence: consistent with education level Insight: + severely impaired insight Judgment: + limited judgement Vital Signs (Past 24 Hours) Last Vital Signs Temp 36.4 C L 10/07/23 06:40 Pulse 83 10/07/23 06:40 Resp 16 10/07/23 06:40 BP 102/70 10/07/23 06:40 Pulse Ox 98 10/02/23 06:23 O2 Del Method Room Air 10/02/23 06:23 Results & Data ([facility]) Laboratory Results Laboratory Results - last 24 hr 10/07/23 11:33 Hgb 11.9 L Current Inpatient Medications Current Inpatient Medications: Current Inpatient Medications Acetaminophen (Acetaminophen 325 Mg Tab) 650 mg PO Q4H PRN PRN Reason: Headache or Minor Fever Stop: 10/24/23 17:12 Last Admin: 10/07/23 09:08 Dose: 650 mg Al Hydrox/Mg Hydrox/Simethicone (Aluminum/Magnesium Susp 30 Ml Udc) 30 ml PO Q4H PRN PRN Reason: GI Upset Stop: 10/24/23 17:12 Bismuth Subsalicylate (Bismuth Subsalicylate Liqd 236 Ml) 15 ml PO PRN PRN PRN Reason: Loose Stool Stop: 10/24/23 17:12 Ferrous Sulfate (Ferrous Sulfate 325 Mg Tab) 325 mg PO MoWeFr@0900 [facility] Stop: 10/29/23 08:59 Last Admin: 10/06/23 08:38 Dose: 325 mg Hydroxyzine HCl (Hydroxyzine Hcl 25 Mg Tab) 50 mg PO HSZ PRN PRN Reason: Insomnia Stop: 10/24/23 17:12 Hydroxyzine HCl (Hydroxyzine Hcl 25 Mg Tab) 25 mg PO Q4H PRN PRN Reason: Anxiety Stop: 10/24/23 17:12 Magnesium Hydroxide (Magnesium Hydroxide Susp 30 Ml Udc) 30 ml PO DAILY PRN PRN Reason: Constipation Stop: 10/24/23 17:12 Miscellaneous (Remove Nicoderm Patch) 1 each N/A DAILY@0859 [facility] Stop: 10/25/23 08:58 Last Admin: 10/07/23 08:50 Dose: 1 each Nicotine (Nicotine 14 Mg/24 Hr Patch) 1 patch TD QAM [facility] Stop: 11/01/23 08:59 Last Admin: 10/07/23 08:56 Dose: 1 patch Nicotine Polacrilex (Nicotine Polacrilex 2 Mg Gum) 2 piece MT PRN PRN PRN Reason: Nicotine Withdrawal Symptoms Stop: 10/24/23 17:12 Olanzapine (Olanzapine 20 Mg Tablet) 20 mg PO HS [facility] Stop: 10/30/23 21:59 Last Admin: 10/06/23 20:33 Dose: 20 mg Pantoprazole Sodium (Pantoprazole 40 Mg Tab) 40 mg PO BID [facility] Stop: 10/24/23 20:59 Last Admin: 10/07/23 08:51 Dose: 40 mg Sodium Chloride (Sodium Chloride 0.65% Na Soln 45 Ml ([place])) 1 - 2 sprays NA PRN PRN PRN Reason: Nasal Dryness/Congestion Stop: 10/24/23 17:12 Thiamine HCl (Thiamine Hcl 100 Mg Tab) 500 mg PO QAM [facility] Stop: 10/25/23 08:59 Last Admin: 10/07/23 08:52 Dose: 500 mg Mental Health & Subst Abuse Tx Psychiatrist Name of Psychiatrist: Edilberto Aguirre Psychiatrist's Date Of Appointment With Psychiatric Provider: 10/15/2023 Time of Appointment with Psychiatrist: 10:30am Psychiatric Appointment Comment: [address] [place] [address] Ring Sorter Name of Ring Sorter: Bella Phone Number for Ring Sorter: [phone] Date of Appointment with Ring Sorter: 10/10/23 Time of Appointment with Ring Sorter: 10:30am Case Management Appointment Comment: [facility]CM will meet you at your home Post Discharge Appointments Primary Care Physician Name Of Family Doctor/PCP: Edilberto Ang- Cristy Connell Primary Care Date of Future Appointment with PCP: 10/15/2023 Time of Appointment with PCP: 8:40am Provider Appointment Comment: [address] [place] [address] Partial or Psych Rehab Name of Partial or Psych Rehab: [facility]- [facility] Partial or Psych Rehab Appointment Comment: please follow up as normal (1) Schizoaffective disorder Schizoaffective disorder type: unspecified Qualified Code(s): F25.9 - Schizoaffective disorder, unspecified
--- NOTE | 2023-10-08 09:46 | Psychiatric Progress Note ---
Date of Service October 08, 2023 Impression / Recommendations Impression 43 year old man with schizoaffective disorder and recent GI bleed requiring blood transfusions. Appears to be responding well to the recent changes in his medications. Somatic delusions appear to be fixed/crystalized. He is sleeping a bit better. He requires psychiatric hospitalization for diagnostic clarification, safety and stabilization, medication management and development of further coping skills. He is on a 303 commitment. Is showing improvement in self-care. Appears to be approaching baseline. Overall, I spent a total of 28 minutes on this case including meeting with the patient, reviewing the chart, nursing report, multidisciplinary team meeting, orders, and documentation. (1) Schizoaffective disorder: Plan 10/07/2023: -Appears to be approaching baseline. Coordination of care to transition to the community is being done. Continued inpatient hospitalization is medically necessary for ongoing monitoring and safety. Preparing for discharge soon. -Continue OLZ 20mg po HS -Monitor mood and delusions. -Continue monitoring Hb level 10/06/2023: -Continued inpatient hospitalization is medically necessary for ongoing monitoring and safety. -Encourage daily shower -Continue OLZ 20mg po HS -Monitor mood and delusions. -Continue monitoring Hb level 10/05/2023: -Continued inpatient hospitalization is medically necessary for ongoing monit oring and safety. -Continue OLZ 20mg po HS -Monitor mood and delusions. -Continue monitoring Hb level 10/04/2023: -Continued inpatient hospitalization is medically necessary for ongoing monitoring and safety. -Continue medications without changes. -Monitor mood and delusions. 10/03/2023: Superficially appropriate but ongoing poor insight with any type of conversation about his health or recent medical issues or concerns about his outpatient adherence with appointments/follow-up. Still very poor insight into recent medical issues and alcohol use. 10/02/2023: Continue current medications and tx plan. 10/01/2023: Continue current medications and tx plan. 09/30/2023: Increase olanzapine to 20mg HS 09/29/2023: Continue current medications and tx plan. 09/28/2023: Continue current medications and tx plan. 09/27/2023: Increase olanzapine to 15mg HS 09/26/2023: Continue current medications and tx plan. 09/25/2023: The patient was admitted to the [facility] (locked inpatient mental healt h unit) on q15 min checks (behavioral with suicide precautions) for safety. The patient will participate in group, recreational, and milieu therapies and will be offered additional individual and family sessions as clinically appropriate. * Continue olanzapine 10mg po HS which was initiated on the medical floor * Fasting labwork in AM * Daily Hemoglobin, Cr, BUN per hospitalist recommendations * Consult hospitalist service if Hgb <8 OR Cr > 1.2 OR abnormal BUN * Continue Protonix qd and Iron MWF Inventory Assets Strengths: supportive family, lives independently, intelligent Needs: medication adjustments, improved insight into new medical condition, increased medical follow-up Suicide Risk Level Suicide Risk Level: Moderate (q15 min suicide checks) (he denies SI but is experiencing psychosis and rufina with poor insight and impairment judgment, he feels safe in the hospital) Risk Factors Assessment Male: Yes : Yes Do You Have Access To A Gun?: No Health Problems: Yes Mental Health Diagnoses: Yes Substance Use Disorders: Yes (in past) Previous Attempt: No Family History of Suicide: No Previous Psychiatric Hospitalization: Yes Hopelessness: No Protective Factors Assessment Congregation Beliefs: Yes : No Responsible for Young Children: No Employed: No Stable Relationships: Yes Supportive Family: Yes Good Rapport with Provider: Yes Interval History Identifying Information DEWAYNE CALDERON is a 43-year-old man who currently lives in [place] alone, has a history of schizoaffective disorder, alcohol use disorder and nicotine use, and was admitted on 09/24/23 17:42 on a 303 involuntary commitment for psychosis with delusions impacting his ability to attend his medical needs including lack of insight into his recent severe GI bleed. Chief Complaint "[]". Review of Systems Sleep Information Total Hours of Sleep: 8 Sleep Comments: Scheduled HS Zyprexa Meal Information Percent Meal Consumed - Breakfast: 100 Percent Meal Consumed - Lunch: 100 Percent Meal Consumed - Dinner: 100 Subjective Subjective Patient was seen & assessed and interval progress reviewed with [treatment team] [nursing and social work] Physical Exam Psychiatric Orientation: alert, oriented x 3, oriented to person, oriented to place and cooperative Apperance: appropriately dressed, appropriately groomed (freshly showered) and + disheveled Eye Contact: good eye contact Motor Behavior: steady gait and station and no abnormal motor movements Speech: + loud speech and normal rate/rhythm/volume of speech Affect: euthymic affect, + labile affect and + elated affect Mood: no depressed mood, no anxious mood and no irritable mood Thought Process: + circumstantial thought process, + tangential thought process, + flight of ideas, + looseness of associations and + confabulations Thought Content: + preoccupation, + paranoid and + delusions (fixed false belief related to his health) Suicidal Thoughts: denies suicidal thoughts Homicidal Thoughts: denies homicidal thoughts Hallucinations: no auditory hallucinations and no visual hallucinations Cognition: language grossly intact; + attention not intact Estimated Intelligence: consistent with education level Insight: + severely impaired insight Judgment: + limited judgement and + severely impaired judgement Vital Signs (Past 24 Hours) Last Vital Signs Temp 36.5 C 10/08/23 06:31 Pulse 86 10/08/23 06:31 Resp 16 10/08/23 06:31 BP 108/74 10/08/23 06:31 Pulse Ox 98 10/02/23 06:23 O2 Del Method Room Air 10/02/23 06:23 Results & Data ([facility]) Laboratory Results Laboratory Results - last 24 hr 10/07/23 11:33 Hgb 11.9 L Current Inpatient Medications Current Inpatient Medications: Current Inpatient Medications Acetaminophen (Acetaminophen 325 Mg Tab) 650 mg PO Q4H PRN PRN Reason: Headache or Minor Fever Stop: 10/24/23 17:12 Last Admin: 10/07/23 09:08 Dose: 650 mg Al Hydrox/Mg Hydrox/Simethicone (Aluminum/Magnesium Susp 30 Ml Udc) 30 ml PO Q4H PRN PRN Reason: GI Upset Stop: 10/24/23 17:12 Bismuth Subsalicylate (Bismuth Subsalicylate Liqd 236 Ml) 15 ml PO PRN PRN PRN Reason: Loose Stool Stop: 10/24/23 17:12 Ferrous Sulfate (Ferrous Sulfate 325 Mg Tab) 325 mg PO MoWeFr@0900 KELLEN Stop: 10/29/23 08:59 Last Admin: 10/08/23 08:05 Dose: 325 mg Hydroxyzine HCl (Hydroxyzine Hcl 25 Mg Tab) 50 mg PO HSZ PRN PRN Reason: Insomnia Stop: 10/24/23 17:12 Hydroxyzine HCl (Hydroxyzine Hcl 25 Mg Tab) 25 mg PO Q4H PRN PRN Reason: Anxiety Stop: 10/24/23 17:12 Magnesium Hydroxide (Magnesium Hydroxide Susp 30 Ml Udc) 30 ml PO DAILY PRN PRN Reason: Constipation Stop: 10/24/23 17:12 Miscellaneous (Remove Nicoderm Patch) 1 each N/A DAILY@0859 [facility] Stop: 10/25/23 08:58 Last Admin: 10/08/23 08:05 Dose: 1 each Nicotine (Nicotine 14 Mg/24 Hr Patch) 1 patch TD QAM [facility] Stop: 11/01/23 08:59 Last Admin: 10/08/23 08:06 Dose: 1 patch Nicotine Polacrilex (Nicotine Polacrilex 2 Mg Gum) 2 piece MT PRN PRN PRN Reason: Nicotine Withdrawal Symptoms Stop: 10/24/23 17:12 Olanzapine (Olanzapine 20 Mg Tablet) 20 mg PO HS [facility] Stop: 10/30/23 21:59 Last Admin: 10/07/23 20:59 Dose: 20 mg Pantoprazole Sodium (Pantoprazole 40 Mg Tab) 40 mg PO BID KELLEN Stop: 10/24/23 20:59 Last Admin: 10/08/23 08:06 Dose: 40 mg Sodium Chloride (Sodium Chloride 0.65% Na Soln 45 Ml (Chase)) 1 - 2 sprays NA PRN PRN PRN Reason: Nasal Dryness/Congestion Stop: 10/24/23 17:12 Thiamine HCl (Thiamine Hcl 100 Mg Tab) 500 mg PO QAM [facility] Stop: 10/25/23 08:59 Last Admin: 10/08/23 08:06 Dose: 500 mg Mental Health & Subst Abuse Tx Psychiatrist Name of Psychiatrist: Edilberto Aguirre Psychiatrist's Date Of Appointment With Psychiatric Provider: 10/15/2023 Time of Appointment with Psychiatrist: 10:30am Psychiatric Appointment Comment: [address] [place] [address] Personnel Clerk Name of Personnel Clerk: Bella Phone Number for Personnel Clerk: [phone] Date of Appointment with Personnel Clerk: 10/10/23 Time of Appointment with Personnel Clerk: 10:30am Case Management Appointment Comment: BCM will meet you at your home Post Discharge Appointments Primary Care Physician Name Of Family Doctor/PCP: Edilberto Connell Primary Care Date of Future Appointment with PCP: 10/15/2023 Time of Appointment with PCP: 8:40am Provider Appointment Comment: [address] [place] [address] Partial or Psych Rehab Name of Partial or Psych Rehab: [facility] mobile psych- [facility] Partial or Psych Rehab Appointment Comment: please follow up as normal (1) Schizoaffective disorder Schizoaffective disorder type: unspecified Qualified Code(s): F25.9 - Schizoaffective disorder, unspecified
--- NOTE | 2023-10-08 15:05 | Discharge Summary ---
Date of Service October 08, 2023 History of Present Illness Per the admitting psychiatrist: Jules presents after being hospitalized on the medical floor for a GI bleed where he was closely monitored for further bleeding after he refused full workup including EGD due to concerns that placement of an IV for the procedure would "kill me". He remains focused on belief that all of his recent issues are due to cigar use noting that his "tarry" bowel movements were not blood but tar being excreted from his lungs from the cigars. He notes the night prior to his initial medical admission he was up all night playing video games and watching all of the [employer] back to back. 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 He is pleased with the olanzapine noting it is "working so well, 100 times better" than his outpatient medications of Seroquel and Vistaril had been, for helping him sleep. Further recent history per my initial consult note on 09/20/2023: "Jules was brought to the hospital yesterday on a 302 warrant, after leaving AMA while being treated for a suspected GI bleed, due to concern for delusions causing him to be at high risk of or permanent disability without medical treatment. Today he seen alongside the hospitalist and psychiatric liason RN. Jules was seen & assessed, and his progress was reviewed with the treatment team. He presents with a chief complaint of back pain, which he attributes to smoking cigars. He denies any stomach pain or bleeding but reports having tarry stools twice in the past month. He believes the tarry stools are due to tar from smoking cigars and not indicative of any gastrointestinal bleeding. Jules also reports a history of broken leg, which he self-treated by smoking cigarettes. He admits to consuming alcohol approximately once a month. He reports a poor appetite and infrequent eating habits, which he attributes to his tobacco use. Jules also mentions difficulty sleeping, with a pattern of not sleeping for two or three nights a week since his 30s though agrees he has been awake "all night for days" recently. He disagrees that he could be experiencing rufina but states he is willing to adjust his psychiatric medications. Recently has been taking Seroquel and Vistaril. Took risperidone in the past and per chart review Depakote many years ago. Denies any history of allergic or adverse reactions to psychiatric medications. He is open to trying Zyprexa to help with his appetite, as he views "jello and some food" as the best way to cure his back and ankle issues. He is adamantly opposed to IV placement as he states this will kill him and caused him to during his medical admission from which he left AMA. States it made him feel like he was underground and buried when he received the blood transfusion and he couldn't breath and "I'm , I that day". So believes all he needs now is to eat and leave. He cannot describe any risks of not following the recommended medical interventions nor any benefits. He repeatedly makes statements such as: "I'm full of tar and nicotine." "I don't eat" "What's the matter with me is it's just the tar in my backbone. I'm not bleeding from the stool. It's tar. From the tar. It's tar from my daily smoking." " Physical Exam Vital Signs (Past 24 Hours) Last Vital Signs Temp 36.5 C 10/08/23 06:31 Pulse 86 10/08/23 06:31 Resp 16 10/08/23 06:31 BP 108/74 10/08/23 06:31 Pulse Ox 98 10/02/23 06:23 O2 Del Method Room Air 10/02/23 06:23 Principal Diagnosis Schizoaffective disorder Psychiatric Data See daily stay summary. In short, safety was maintained and the patient was cooperative with care. Medication changes included titrating olanzapine from 10 mg to 15 and later to 20 mg. He tolerated this well. A family session was on 10/08/23 and safety plan was completed prior to discharge. Day of Discharge Assessment Today the patient voices readiness for discharge. They note improvement in mood and deny thoughts to harm self or others. Thoughts remain organized and they are improved from admission. There is no evidence of psychosis. They agree to take mediations as prescribed and keep follow-up appointments. They are stable for discharge to outpatient level of care. Transition of Care Transition Of Care Record: was reviewed with the patient Advance Directives Advance Directives Information Provided: Yes Advance Directives: No Mental Health Advance Directive: No Advance Directives on File: No Living Will: No Power of Senior [employer] Sql Developer: No Advance Directives Reason:: Declines as Mental Health Visit. Suicide Risk Level Suicide Risk Level Comments: Suicide risk at discharge is deemed low as the patient is no longer requiring 24-hr monitoring, has a safety plan, and is free of suicidal ideation at discharge. Risk Factors Assessment Male: Yes : Yes Do You Have Access To A Gun?: No Health Problems: Yes Mental Health Diagnoses: Yes Substance Use Disorders: Yes (in past) Previous Attempt: No Family History of Suicide: No Previous Psychiatric Hospitalization: Yes Hopelessness: No Protective Factors Assessment Restoration Beliefs: Yes : No Responsible for Young Children: No Employed: No Stable Relationships: Yes Supportive Family: Yes Good Rapport with Provider: Yes Discharge Data Lab Results 09/25/23 09/26/23 09/27/23 10:23 07:26 07:24 Hgb 10.8 L 10.5 L 9.0 L BUN 7 17 14 Creatinine 0.95 1.02 0.96 Est Cr Clr Drug Dosing 113.2 105.4 112.0 Est GFR ( Amer) 111.6 102.4 110.2 Est GFR (Non-Af Amer) 96.3 88.4 95.1 Fasting Glucose 93 Triglycerides 87 Cholesterol 139 LDL Cholesterol, Calc 76 VLDL Cholesterol, Calc 17 HDL Cholesterol 46 Cholesterol/HDL Ratio 3.0 09/28/23 09/29/23 09/30/23 06:54 07:27 07:21 Hgb 11.1 L 11.1 L 11.2 L BUN 12 12 12 Creatinine 0.85 0.85 0.88 Est Cr Clr Drug Dosing 126.5 126.5 122.2 Est GFR ( Amer) 122.0 122.0 120.2 Est GFR (Non-Af Amer) 105.2 105.2 103.7 Fasting Glucose Triglycerides Cholesterol LDL Cholesterol, Calc VLDL Cholesterol, Calc HDL Cholesterol Cholesterol/HDL Ratio 10/01/23 10/02/23 10/03/23 07:42 07:08 07:08 Hgb 11.0 L 11.0 L 12.0 L BUN Creatinine 0.82 0.83 0.90 Est Cr Clr Drug Dosing 131.1 129.6 119.5 Est GFR ( Amer) 123.8 123.2 119.1 Est GFR (Non-Af Amer) 106.8 106.3 102.8 Fasting Glucose Triglycerides Cholesterol LDL Cholesterol, Calc VLDL Cholesterol, Calc HDL Cholesterol Cholesterol/HDL Ratio 10/04/23 10/05/23 10/06/23 06:59 11:21 11:31 Hgb 11.6 L 11.9 L 11.7 L BUN Creatinine 0.98 Est Cr Clr Drug Dosing 109.7 Est GFR ( Amer) 107.5 Est GFR (Non-Af Amer) 92.7 Fasting Glucose Triglycerides Cholesterol LDL Cholesterol, Calc VLDL Cholesterol, Calc HDL Cholesterol Cholesterol/HDL Ratio 10/07/23 10/08/23 11:33 11:15 Hgb 11.9 L 11.7 L BUN Creatinine Est Cr Clr Drug Dosing Est GFR ( Amer) Est GFR (Non-Af Amer) Fasting Glucose Triglycerides Cholesterol LDL Cholesterol, Calc VLDL Cholesterol, Calc HDL Cholesterol Cholesterol/HDL Ratio Hospital Course (1) Schizoaffective disorder: Plan Today the patient voices readiness for discharge. They note improvement in mood and deny thoughts to harm self or others. Thoughts remain organized and they are improved from admission. There is no evidence of overt psychosis. They agree to take mediations as prescribed and keep follow-up appointments. They are stable for discharge to outpatient level of care.Suicide risk is low. He had 2 normal BM (one yesterday and one today), denied feeling dizzy. HB remains stable. Ready for discharge Recommended to monitor BM and do contact his PCP in case of dark stools. Mental Health & Subst Abuse Tx Psychiatrist Name of Psychiatrist: Edilberto Aguirre Psychiatrist's Date Of Appointment With Psychiatric Provider: 10/15/2023 Time of Appointment with Psychiatrist: 10:30am Psychiatric Appointment Comment: [address] [place] [address] Superintendent Institution Name of Superintendent Institution: [facility] Phone Number for Superintendent Institution: [phone] Date of Appointment with Superintendent Institution: 10/10/23 Time of Appointment with Superintendent Institution: 10:30am Case Management Appointment Comment: BCM will meet you at your home Post Discharge Appointments Primary Care Physician Name Of Family Doctor/PCP: Edilberto Connell Primary Care Date of Future Appointment with PCP: 10/15/2023 Time of Appointment with PCP: 8:40am Provider Appointment Comment: [address] [place] [address] Partial or Psych Rehab Name of Partial or Psych Rehab: [facility] mobile psych- [place] Partial or Psych Rehab Appointment Comment: please follow up as normal Discharge Plan Discharge Items Patient Disposition: Home - Self-Care Reason For Visit: SCHIZOAFFECTIVE DISORDER Discharge Diagnosis: Schizoaffective disorder Activity: Resume your previous activity Non-emergency contact: Primary Care Provider, Psychiatrist and Therapist Call non-emergency contact if: you have any medication questions and your symptoms worsen Follow-up/Referrals: Cristy Connell, [Primary Care Provider] - Diet: Regular Addtl Attending Provider Instructions: SPECIAL CARE INSTRUCTIONS: 1. Follow through with your scheduled aftercare appointments. If unable to keep an appointment, please call to reschedule. 2. Take your medication only as prescribed. Medication should not be changed or stopped without the approval of your doctor. In the event of worsening symptoms or concerns about side effects, contact your doctor immediately. 3. Utilize new healthy coping skills, anger management skills, and stress management skills learned during your hospitalization. Journal feelings and process them with a support person. Identify stressors or situations that may result in relapse, deterioration or inappropriate behaviors and develop a plan to deal with those issues. 4. If your coping skills are ineffective and you are in crisis, contact your outpatient providers for direction. If unable to reach your providers, please call the [facility] CRISIS LINE AT , go to the [facility] walk-in center at [address], [place], or go to the closest Emergency Room. 5. Avoid alcohol and un-prescribed drugs. 6. You have been provided with the Mental Health Advance Directives Pamphlet for your review. 7. Your condition is stable for discharge to outpatient level of care, but recovery is an ongoing process. Ifthoughts to harm yourself or others return, follow the safety plan developed during your stay. Planning for a safe return home includes securing weapons. Our treatment team recommends weaponsbe removed from the home until your outpatient provider reassesses your progress. In rare cases where the items themselvescannot be removed, guns and ammunitionshould be secured separatelyand keys stored by a reliable personoutside of the home. If you were admitted on an involuntary commitment, the police or other legal authorities may be involved in this process. AFTERCARE APPOINTMENTS: * Please call your insurance company prior to your scheduled appointment to confirm your aftercare providers are covered. Take your insurance information to your appointments. WHO TO CALL AND WHEN: Medical Emergencies: For questions or emergencies related to your hospital stay, please contact the Inpatient Behavioral Health Unit at [phone]. A ladle car operator is on-call 06/01 for the Behavioral Health Unit for emergencies At any time you feel your situation is an emergency, you may also call 911 immediately. Pending Studies at Discharge: Yes Studies:: Monitoring of hemoglobin by PCP Stand-Alone Forms: My [facility], Smoking Cessation Medications and DC Order Prescriptions: New pantoprazole 40 mg Tablet,Delayed Release (Dr/Ec) 40 mg PO BID 30 Days Qty: 60 0RF olanzapine [Zyprexa] 20 mg Tablet 20 mg PO HS 30 Days Qty: 30 0RF Continued ferrous sulfate 325 mg (65 mg iron) Tablet,Delayed Release (Dr/Ec) 325 mg PO MoWeFr@0900 Qty: 30 0RF pantoprazole 40 mg Tablet,Delayed Release (Dr/Ec) 40 mg PO BID Qty: 60 0RF thiamine HCl (vitamin B1) 100 mg Tablet 500 mg PO QAM Qty: 30 0RF Discontinued acetaminophen 325 mg Tablet 650 mg PO Q4H PRNQty: 30 0RF olanzapine 10 mg Tablet 10 mg PO HS Qty: 30 0RF olanzapine 5 mg Tablet 5 mg PO Q6 PRNQty: 30 0RF Discharge Orders: Discharge Order (Routine); Ordered 10/08/23 Ordered By: Roxana Grace Admission Data Admit Date/Time: 09/24/23 17:42 Attending Provider: Osiris Carreon Admit Provider: Osiris Carreon Primary Care Provider: Cristy Connell Other Interventions: Discharge Summary Assessment (RN) Last Done: 10/08/23 15:21 PSY Interdisciplinary Discharge Planning Last Done: 10/08/23 15:21 [place] [address] D/C day mgmt > 30 min Patient Type Established History Expanded Problem Focused Exam Expanded Problem Focused Medical Decision Making Moderate Complexity Diagnoses Schizoaffective disorder, unspecified type F25.9 Schizoaffective disorder type: unspecified Time Spent (min) 45
== END 2023-10-08 17:05 | disposition home or self-care (01) | DRG 885 ==
LOC: 3S 17:42

== ENCOUNTER 2024-01-19 23:08 | Observation (INO) ==
--- NOTE | 2024-01-19 23:22 | Emergency Department Note ---
Impression & Plan Alcohol withdrawal, Delirium tremens, Alcohol dependence ED Provider Note NAME: DEWAYNE CALDERON AGE: 43 SEX: M : 1980 ARRIVES VIA: Ambulance INFORMANT: Patient ED PROVIDER(S): Marcel Gonzales MD CHIEF COMPLAINT: AMS PLAN: Disposition: Admit MEDICAL DECISION MAKING: The patient is a 43-year-old gentleman with past medical history of alcohol abuse who presents to the emergency department via EMS after the patient was reportedly found down on the ground in the mulch in his underwear. He had a bottle of Listerine nearby. On arrival the patient is afebrile with heart rate in the 100s and blood pressure 150s/90s and otherwise vital signs stable. He is intoxicated appearing, with moderate dysarthria and is a poor historian. He is moving all extremities equally without focal weakness. There is a minor abrasion to the bridge of his nose without gross deformity or contusion. Otherwise head is atraumatic. CT of the C-spine was performed and was negative for acute normalities. CT of the head had been ordered however the patient was unable to be still/redirected to comply and so was deferred until a later time. EKG without overt acute ischemia. WBC 4K without neutrophilia or left shift, nonspecific. H/H similar to prior. Platelets within normal limits. Chemistry without metabolic acidosis. Potassium 3.3 magnesium 1.9 and electrolytes otherwise unremarkable. AST is 42, similar to prior values in setting of chronic alcoholism. LFTs otherwise unremarkable. Medical alcohol was 143. Patient was observed in the emergency department assessing for clinical sobriety for safe discharge. However the patient progressed quickly to symptoms of withdrawal which persisted despite initial treatment with 2 mg of oral Ativan and 100 mg of Librium. Patient was then given 2 mg of IV Ativan with some improvement but still restless, tremulous and confused. Thus, he was treated with IM phenobarbital due to concern for severe alcohol withdrawal/delirium tremens. Initial dose of 130 mg did have reasonable effect however still the patient was easily agitated and so a supplemental dose of 65 mg was administered where the patient ultimately was able to have CT of the head completed which per my preliminary independent interpretation shows no overt ICH. Final radiology report also was negative for ICH. Case was [place] Jacobs, [facility] [place] who will evaluate the patient for admission. Further management per admitting team. Triage Nursing notes reviewed and agree them. Prior/external medical records reviewed Vital Signs: reviewed Differential diagnosis: Alcohol intoxication, toxicologic, infection, hypoglycemia, electrolyte abnormalities, cardiac sources, intracerebral event, neurologic, trauma, as well as other pathologies. ER treatment provided: See below. Diagnostics interpreted by me: ECG: Sinus tachycardia, 102 bpm, no ectopy, no overt ST ovation or depression, QTc 450, QRS 98. Cardiac Monitoring: An order for continuous cardiac monitoring was placed and demonstrated sinus tachycardia, 102 bpm, no ectopy. Laboratory studies: See below Imaging studies: See below Consultation(s): [place]. Jacobs, [facility] [place], HPI: The patient is a 43-year-old gentleman with past medical history of alcohol abuse who presents to the emergency department via EMS after the patient was reportedly found down on the ground in the mulch in his underwear. He had a bottle of Listerine nearby. ROS: See above HPI for pertinent positives & negatives. A total of 10 systems reviewed and were otherwise negative. VITALS:See Below PHYSICAL EXAMINATION: GENERAL: Awake, alert, intoxicated-appearing, in no distress HENT: Normocephalic, minor abrasion to the bridge of his nose without gross deformity or contusion otherwise atraumatic. Oropharynx with dry mucous membranes and otherwise unremarkable. EYES: Normal conjunctiva. Sclera non-icteric. Bilateral horizontal nystagmus. NECK: Supple. No nuchal rigidity. FROM. No JVD. RESPIRATORY: Clear to auscultation. CARDIAC: Tachycardic rate, normal rhythm. Extremities warm and well perfused. Pulses equal. ABDOMEN: Soft, non-distended. No tenderness to palpation. No rebound or guarding. No masses. MUSCULOSKELETAL: Chest examination reveals no tenderness. The back is symmetrical on inspection without obvious abnormality. There is no CVA tenderness to palpation. No joint edema. LOWER EXTREMITIES: Calves are equal size bilaterally and non-tender. No edema. No discoloration. NEURO: Slurred speech. Confused but follows commands. Poor attention but redirectable. Moving all extremities equally without focal weakness. SKIN: No rash or jaundice noted. ED COURSE: Critical Care: I have personally spent greater than 75 minutes of critical care time in the direct management of this patient. This includes bedside care, interpretation of diagnostic studies, and testing, discussion with consultants, patient, and family members, and other required patient management activities. This 75 minutes is in excess of all separately billable procedures. Marcel Gonzales MD Past Med/Surg History Problem List (Updated 01/20/24 @ 09:32 by Marcel Gonzales MD) Alcohol dependence (Acute) Delirium tremens (Acute) Alcohol withdrawal (Acute) Schizoaffective disorder Encounter for assessment of decision-making capacity Acute gastrointestinal bleeding (Acute) Acute blood loss anemia Symptomatic anemia Encephalopathy Elevated troponin (Acute) AMS (altered mental status) (Acute) Anemia (Acute) Syncope (Acute) Seizure (Acute) Primary osteoarthritis, left ankle and foot Alcohol abuse (Acute) Alcohol abuse (Acute) Alcohol intoxication (Acute) Fall (Acute) [id number] (Acute) Medical History Janiya Unspecified psychosis not due to a substance or known physiological condition Iron deficiency anemia Alcohol dependence Alcohol abuse Schizophrenia Social History Smoking Status: Unknown if ever smoked Tobacco Type: Smokeless Tobacco (Dip or Chew) Second Hand Exposure: No; Do You Dip or Chew Tobacco: Yes; Hx Alcohol Use: Yes Alcohol type: hard liquor Hx Substance Use: No Preferred Language: Scottish 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 current occupational status: disabled Feels Safe at Home: Yes Gender Identity: Male Assistive Devices: None Allergies Allergies Allergy/AdvReac Type Severity Reaction Status Date / Time No Known Allergies Allergy Mild Verified 12/17/23 23:57 Home Meds Home Medications Medication Instructions Recorded Confirmed hydroxyzine HCl 10 mg tablet 10 mg PO DAILY PRN Anxiety 12/08/23 12/17/23 olanzapine 20 mg tablet 20 mg PO HS 12/08/23 12/17/23 ferrous sulfate 325 mg (65 mg 325 mg PO 3XWK 12/17/23 12/17/23 iron) tablet,delayed release Previous Rx's Medication Instructions Recorded pantoprazole 40 mg tablet,delayed 40 mg PO BID #60 tabs 09/24/23 release thiamine HCl (vitamin B1) 100 mg 500 mg (5 x 100 mg) PO QAM #30 tabs 09/24/23 tablet Results & Data (ED) Vital Signs Vital Signs - 24 hr 01/19/24 23:19 01/19/24 23:24 01/19/24 23:24 Temperature 36.7 C Temperature Source Oral Pulse Rate 107 H 100 H Pulse Rate [Apical] Pulse Rate from SpO2 Sensor Respiratory Rate 16 Respiratory Effort / Characteristics Respiratory Depth Respiratory Pattern Blood Pressure 150/94 H Blood Pressure [Right Arm] Blood Pressure Mean 112 Blood Pressure Mean [Right Arm] Pulse Oximetry 96 96 Oxygen Delivery Method Room Air Room Air Sepsis Recent Fever Within 48 Hours No Sepsis New/Unexplained Change in Mental Status No Sepsis Action Taken by Nursing No Action Required End-Tidal CO2 01/19/24 23:32 01/20/24 01:24 01/20/24 03:01 Temperature Temperature Source Pulse Rate 90 Pulse Rate [Apical] 97 H Pulse Rate from SpO2 Sensor 80 Respiratory Rate 18 24 Respiratory Effort / Characteristics Respiratory Depth Respiratory Pattern Blood Pressure 135/78 Blood Pressure [Right Arm] 167/109 H Blood Pressure Mean 97 Blood Pressure Mean [Right Arm] 128 Pulse Oximetry 96 99 95 Oxygen Delivery Method Room Air Room Air Sepsis Recent Fever Within 48 Hours Sepsis New/Unexplained Change in Mental Status Sepsis Action Taken by Nursing End-Tidal CO2 33 01/20/24 03:13 01/20/24 03:17 01/20/24 03:59 Temperature Temperature Source Pulse Rate 103 H 72 96 H Pulse Rate [Apical] Pulse Rate from SpO2 Sensor Respiratory Rate 28 H 16 Respiratory Effort / Characteristics Respiratory Depth Respiratory Pattern Blood Pressure 135/78 135/78 Blood Pressure [Right Arm] Blood Pressure Mean Blood Pressure Mean [Right Arm] Pulse Oximetry Oxygen Delivery Method Sepsis Recent Fever Within 48 Hours Sepsis New/Unexplained Change in Mental Status Sepsis Action Taken by Nursing End-Tidal CO2 01/20/24 04:38 01/20/24 05:00 01/20/24 07:46 Temperature Temperature Source Pulse Rate 63 Pulse Rate [Apical] 69 Pulse Rate from SpO2 Sensor 70 Respiratory Rate 14 14 19 Respiratory Effort / Characteristics Non-Labored Respiratory Depth Normal Respiratory Pattern Regular Blood Pressure 138/94 136/91 Blood Pressure [Right Arm] 146/86 H Blood Pressure Mean 113 102 Blood Pressure Mean [Right Arm] 106 Pulse Oximetry 99 99 98 Oxygen Delivery Method Room Air Room Air Room Air Sepsis Recent Fever Within 48 Hours Sepsis New/Unexplained Change in Mental Status Sepsis Action Taken by Nursing End-Tidal CO2 25 33 01/20/24 07:58 Temperature Temperature Source Pulse Rate 77 Pulse Rate [Apical] Pulse Rate from SpO2 Sensor Respiratory Rate Respiratory Effort / Characteristics Respiratory Depth Respiratory Pattern Blood Pressure Blood Pressure [Right Arm] Blood Pressure Mean Blood Pressure Mean [Right Arm] Pulse Oximetry Oxygen Delivery Method Sepsis Recent Fever Within 48 Hours Sepsis New/Unexplained Change in Mental Status Sepsis Action Taken by Nursing End-Tidal CO2 Laboratory Data Attestation: I reviewed the patient's lab results. 01/19/24 23:20 01/20/24 08:11 Lab Results 01/19/24 01/20/24 Range/Units 23:20 08:11 WBC 4.12 L (4.8-10.8) K/ul RBC 4.36 L (4.70-6.10) M/uL Hgb 11.8 L (14.0-18.0) g/dl Hct 35.8 L (42.0-52.0) % MCV 82.1 (80.0-100.0) fL MCH 27.1 (25.0-34.0) pg MCHC 33.0 (32.0-36.0) g/dL RDW Std Deviation 53.4 H (36.4-46.3) fL RDW Coeff of Federico 17.9 H (11.5-14.5) % Plt Count 298 (130-400) K/uL MPV 9.3 L (9.4-12.4) fL Immature Gran % (Auto) 0.2 % Neut % (Auto) 74.1 % Lymph % (Auto) 18.4 % Cascade % (Auto) 5.8 % Eos % (Auto) 0.5 % Baso % (Auto) 1.0 % Neut # (Auto) 3.05 (1.40-6.50) K/uL Lymph # (Auto) 0.76 L (1.20-3.40) K/uL Cascade # (Auto) 0.24 (0.11-0.59) K/uL Eos # (Auto) 0.02 (0.00-0.50) K/uL Baso # (Auto) 0.04 (0.00-0.20) K/uL Immature Gran # (Auto) 0.01 (0.01-0.20) K/uL PT 11.9 (9.0-12.0) Seconds INR 1.1 (0.9-1.1) Sodium 142 139 (136-145) mmol/L Potassium 3.3 L 3.9 (3.5-5.1) mmol/L Chloride 108 H 107 (98-107) mmol/L Carbon Dioxide 23 24 (21-32) mmol/L Anion Gap 11 8 (3-11) BUN 9 7 (6-23) mg/dl Creatinine 0.92 0.73 (0.6-1.4) mg/dl Est Cr Clr Drug Dosing 104.7 131.9 ml/min Est GFR ( Amer) 116.0 129.8 ml/min Est GFR (Non-Af Amer) 100.1 112.0 ml/min BUN/Creatinine Ratio 9.8 L 9.6 L (10-20) Glucose 99 93 (70-99(Fasting)) mg/dl Osmolality 296 (280-300) mOsm/kg Calcium 9.0 8.8 (8.6-10.3) mg/dl Magnesium 1.9 (1.7-2.4) mg/dl Total Bilirubin 0.4 0.5 (0.2-1.0) mg/dl AST 42 H 41 H (13-39) U/L ALT 43 38 (7-52) U/L Alkaline Phosphatase 65 61 (34-104) U/L Total Protein 7.2 6.9 (6.0-8.3) gm/dl Albumin 4.4 4.2 (3.4-5.0) gm/dl Globulin 2.8 2.7 (2.5-4.0) gm/dl Albumin/Globulin Ratio 1.6 1.6 (0.9-2) Ethyl Alcohol mg/dL 143.7 H < 10.0 (<10.0) mg/dl Administered Medications Folic Acid (Folic Acid 1 Mg Tab) 1 mg PO [facility] Stop: 02/19/24 08:59 Last Admin: 01/20/24 09:13 Dose: Not Given Documented By: SHANTELLE Thiamine HCl (Thiamine Hcl 100 Mg Tab) 100 mg PO [facility] Stop: 02/19/24 08:59 Last Admin: 01/20/24 09:13 Dose: Not Given Documented By: SHANTELLE Discontinued Medications Chlordiazepoxide HCl (Chlordiazepoxide Hcl 25 Mg Cap) 100 mg PO NOW ONE Stop: 01/20/24 01:51 Last Admin: 01/20/24 01:55 Dose: 100 mg Documented By: JESUSITA Multivitamins 10 ml/ Thiamine HCl 100 mg/ Folic Acid 1 mg/Sodium Chloride 1,011.2 mls @ 500 mls/hr IV .Q2H2M ONE Stop: 01/20/24 01:30 Last Infusion: 01/20/24 02:19 Dose: Infused Documented By: Admin: 01/20/24 00:14 Dose: 500 mls/hr Documented By: JESUSITA Thiamine HCl 200 mg/ Sodium (Chloride) 52 mls @ 210 mls/hr IV NOW STA Stop: 01/19/24 23:43 Last Infusion: 01/20/24 00:38 Dose: Infused Documented By: Admin: 01/20/24 00:14 Dose: 210 mls/hr Documented By: JESUSITA Magnesium Sulfate/Dextrose (Magnesium Sulfate / D5w) 1 gm in 100 mls @ 100 mls/hr IV NOW STA Stop: 01/20/24 04:18 Last Infusion: 01/20/24 07:40 Dose: Infused Documented By: Admin: 01/20/24 06:27 Dose: 100 mls/hr Documented By: EVELIN Potassium Chloride (K Enzo / Wtr) 10 meq in 100 mls @ 100 mls/hr IV Q1H KELLEN Stop: 01/20/24 05:29 Last Infusion: 01/20/24 08:46 Dose: Infused Documented By: Admin: 01/20/24 07:22 Dose: 100 mls/hr Documented By: Infusion: 01/20/24 07:22 Dose: Infused Documented By: Admin: 01/20/24 06:29 Dose: 100 mls/hr Documented By: EVELIN Lorazepam (Lorazepam 1 Mg Tab) 2 mg SL NOW STA Stop: 01/20/24 01:51 Last Admin: 01/20/24 02:02 Dose: 2 mg Documented By: JESUSITA Lorazepam (Lorazepam 1 Mg/1 Ml Syr Ed Inj Use) 2 mg IV ONE STA Stop: 01/20/24 02:30 Last Admin: 01/20/24 02:35 Dose: 2 mg Documented By: JESUSITA Lorazepam (Lorazepam 1 Mg/1 Ml Syr Ed Inj Use) Confirm Administered Dose 2 mg .ROUTE .STK-MED ONE Stop: 01/20/24 04:44 Last Admin: 01/20/24 05:00 Dose: Not Given Documented By: JENNIFER Lorazepam (Lorazepam 1 Mg/1 Ml Syr Ed Inj Use) 2 mg IV ONE STA Stop: 01/20/24 04:44 Last Admin: 01/20/24 05:00 Dose: 1 mg Documented By: JENNIFER Phenobarbital Sodium (Phenobarbital Sodium 130 Mg/Ml Vial) 130 mg IM NOW STA Stop: 01/20/24 03:04 Last Admin: 01/20/24 03:13 Dose: 130 mg Documented By: JESUSITA Phenobarbital Sodium (Phenobarbital Sodium 65 Mg/Ml Vial) 65 mg IM NOW STA Stop: 01/20/24 03:53 Last Admin: 01/20/24 03:59 Dose: 65 mg Documented By: EVELIN Imaging Data Radiologist's Impression: Cervical Spine CT 01/19/24 23:27 Exam(s): CT C SPINE EXAM: CT Cervical Spine Without Intravenous Contrast CLINICAL HISTORY: Reason for exam: found down, ams/etoh. TECHNIQUE: Axial computed tomography images of the cervical spine without intravenous contrast. CTDI is 21.34 mGy and DLP is 435.11 mGy-cm. Automated exposure control was utilized for the study. A dose lowering technique was utilized adhering to the principles of ALARA. COMPARISON: No relevant prior studies available. FINDINGS: Vertebrae: No evidence of acutely displaced fracture or dislocation within the cervical spine. Consider MRI if there is further concern. Degenerative changes in the cervical spine noted including loss of disc space height, osteophyte formation, uncovertebral hypertrophy, and facet arthropathy. Soft tissues: Unremarkable. IMPRESSION: 1. No evidence of acutely displaced fracture or dislocation within the cervical spine. Consider MRI if there is further concern. 2. Degenerative changes. Electronically signed by: Blu Munoz MD 01/20/24 06:[address] 01/19/24 23:27 Exam(s): CT HEAD Without Contrast EXAM: CT Head Without Intravenous Contrast CLINICAL HISTORY: Reason for exam: found down, ams/etoh. TECHNIQUE: Axial computed tomography images of the head/brain without intravenous contrast. CTDI is 36.9 mGy and DLP is 702.46 mGy-cm. Automated exposure control was utilized for the study. A dose lowering technique was utilized adhering to the principles of ALARA. COMPARISON: CT Head dated nov 07 2023 FINDINGS: Brain: Unremarkable. No hemorrhage. No significant white matter disease. No edema. Ventricles: Unremarkable. No ventriculomegaly. Bones/joints: Unremarkable. No acute fracture. Soft tissues: Unremarkable. Sinuses: Unremarkable as visualized. Mastoid air cells: Unremarkable as visualized. No mastoid effusion. IMPRESSION: No acute intracranial abnormality. Consider MRI if there is further concern. Electronically signed by: Blu Munoz MD 01/20/24 06:44 AM Discharge Plan Visit Data Chief Complaint: Alcohol Intoxication Stated Complaint: ALCOHOL OVERDOSE ED Provider: Marcel Gonzales Discharge Problem: Alcohol withdrawal, Delirium tremens, Alcohol dependence Forms Stand Alone Forms: [employer] Prescriptions Prescriptions: No Action ferrous sulfate 325 mg (65 mg iron) tablet,delayed release (DR/EC) 325 mg PO 3XWK Rx Instructions: MON, WED, & FRI. pantoprazole 40 mg Tablet,Delayed Release (Dr/Ec) 40 mg PO BID Qty: 60 0RF Rx Instructions: LAST FILLED 10/08/23 FOR 30 DAYS. thiamine HCl (vitamin B1) 100 mg Tablet 500 mg PO QAM Qty: 30 0RF hydroxyzine HCl 10 mg tablet 10 mg PO DAILY PRN (Reason: Anxiety) olanzapine 20 mg tablet 20 mg PO HS Referrals Referrals: Cristy Connell DO [Primary Care Provider] - Discharge Problem: Alcohol withdrawal Qualifiers: Complication of substance-induced condition: with delirium Qualified Code(s): F 10931 - Alcohol use, unspecified with withdrawal delirium Alcohol dependence Qualifiers: Substance use status: unspecified alcohol-induced disorder Qualified Code(s): F 10.29 - Alcohol dependence with unspecified alcohol-induced disorder
[2024-01-19 23:32] VITALS: TEMP 98.1
[2024-01-19 23:53] LABS: Basophils # (auto) 0.04 K/uL (0.00-0.20); Eosinophils # (auto) 0.02 K/uL (0.00-0.50); Eosinophils % (auto) 0.5 %; Hematocrit (blood only) 35.8 % (42.0-52.0); Hemoglobin 11.8 g/dl (14.0-18.0); Immature Granulocytes # (auto) 0.01 K/uL (0.01-0.20); Immature Granulocytes % (auto) 0.2 %; Lymphocytes # (auto) 0.76 K/uL (1.20-3.40); Lymphocytes % (auto) 18.4 %; Mean Corpuscular Hemoglobin 27.1 pg (25.0-34.0); Mean Corpuscular Volume 82.1 fL (80.0-100.0); Mean Platelet Volume 9.3 fL (9.4-12.4); Monocytes # (auto) 0.24 K/uL (0.11-0.59); Monocytes % (auto) 5.8 %; Neutrophils # (auto) 3.05 K/uL (1.40-6.50); Neutrophils % (auto) 74.1 %; Platelet Count 298 K/uL (130-400); RDW Coefficient of Variation 17.9 % (11.5-14.5); RDW Standard Deviation 53.4 fL (36.4-46.3); Red Blood Count 4.36 M/uL (4.70-6.10); White Blood Count 4.12 K/ul (4.8-10.8)
[2024-01-20 00:06] LABS: BUN Creatinine Ratio 9.8 (10-20); Creatinine Clr Calc Pharmacy 104.7 ml/min; Est GFR (Non-African American) 100.1 ml/min; Potassium 3.3 mmol/L (3.5-5.1)
[2024-01-20 00:07] LABS: Albumin Globulin Ratio 1.6 (0.9-2); Albumin Level 4.4 gm/dl (3.4-5.0); Bilirubin,Total 0.4 mg/dl (0.2-1.0); Globulin 2.8 gm/dl (2.5-4.0); Magnesium 1.9 mg/dl (1.7-2.4); Total Protein 7.2 gm/dl (6.0-8.3)
[2024-01-20] MEDS: MULTI-VITAMIN INFUSION 10 ML, THIAMINE HCL 100 MG, FOLIC ACID 1 MG in SODIUM CHLORIDE 0... IV ONE (00:14)
[2024-01-20] MEDS: THIAMINE HCL 200 MG in SODIUM CHLORIDE 0.9% 50 ML IV STA (00:14)
[2024-01-20 00:24] LABS: INR 1.1 (0.9-1.1); Prothrombin Time 11.9 Seconds (9.0-12.0)
[2024-01-20] MEDS: chlordiazePOXIDE HCl 25 MG CAP PO ONE (01:55)
[2024-01-20] MEDS: LORazepam 1 MG TAB SL STA (02:02)
[2024-01-20] MEDS: LORazepam 1 MG/1 ML SYR ED Inj Use IV STA ×2 (02:35→05:00)
[2024-01-20] MEDS: PHENobarbital sodium 130 MG/ML VIAL IM STA (03:13)
[2024-01-20] MEDS: PHENobarbital sodium 65 MG/ML VIAL IM STA (03:59)
[2024-01-20] MEDS: LORazepam 1 MG/1 ML SYR ED Inj Use ONE (05:00)
[2024-01-20] MEDS: MAGNESIUM SULFATE / D5W 1 GM/100 ML BAG IV STA (06:27)
[2024-01-20] MEDS: POTASSIUM CHLORIDE / WTR 10 MEQ/100 ML PLCT IV SCH (06:29)
--- NOTE | 2024-01-20 06:44 | CT Scan Report ---
Exam(s): CT C SPINE EXAM: CT Cervical Spine Without Intravenous Contrast CLINICAL HISTORY: Reason for exam: found down, ams/etoh. TECHNIQUE: Axial computed tomography images of the cervical spine without intravenous contrast. CTDI is 21.34 mGy and DLP is 435.11 mGy-cm. Automated exposure control was utilized for the study. A dose lowering technique was utilized adhering to the principles of ALARA. COMPARISON: No relevant prior studies available. FINDINGS: Vertebrae: No evidence of acutely displaced fracture or dislocation within the cervical spine. Consider MRI if there is further concern. Degenerative changes in the cervical spine noted including loss of disc space height, osteophyte formation, uncovertebral hypertrophy, and facet arthropathy. Soft tissues: Unremarkable. IMPRESSION: 1. No evidence of acutely displaced fracture or dislocation within the cervical spine. Consider MRI if there is further concern. 2. Degenerative changes. Electronically signed by: Blu Munoz MD 01/20/24 06:42 AM
--- NOTE | 2024-01-20 06:45 | CT Scan Report ---
Exam(s): CT HEAD Without Contrast EXAM: CT Head Without Intravenous Contrast CLINICAL HISTORY: Reason for exam: found down, ams/etoh. TECHNIQUE: Axial computed tomography images of the head/brain without intravenous contrast. CTDI is 36.9 mGy and DLP is 702.46 mGy-cm. Automated exposure control was utilized for the study. A dose lowering technique was utilized adhering to the principles of ALARA. COMPARISON: CT Head dated nov 07 2023 FINDINGS: Brain: Unremarkable. No hemorrhage. No significant white matter disease. No edema. Ventricles: Unremarkable. No ventriculomegaly. Bones/joints: Unremarkable. No acute fracture. Soft tissues: Unremarkable. Sinuses: Unremarkable as visualized. Mastoid air cells: Unremarkable as visualized. No mastoid effusion. IMPRESSION: No acute intracranial abnormality. Consider MRI if there is further concern. Electronically signed by: Blu Munoz MD 01/20/24 06:44 AM
[2024-01-20 08:46] LABS: Albumin Globulin Ratio 1.6 (0.9-2); Albumin Level 4.2 gm/dl (3.4-5.0); BUN Creatinine Ratio 9.6 (10-20); Bilirubin,Total 0.5 mg/dl (0.2-1.0); Calcium 8.8 mg/dl (8.6-10.3); Creatinine Clr Calc Pharmacy 131.9 ml/min; Est GFR (African American) 129.8 ml/min; Globulin 2.7 gm/dl (2.5-4.0); Potassium 3.9 mmol/L (3.5-5.1); Total Protein 6.9 gm/dl (6.0-8.3)
[2024-01-20] MEDS: FOLIC ACID 1 MG TAB PO SCH (09:13)
[2024-01-20] MEDS: THIAMINE HCL 100 MG TAB PO SCH (09:13)
[2024-01-20] MEDS: PANTOprazole 40 MG TAB PO SCH (11:46)
--- NOTE | 2024-01-20 12:37 | History & Physical Report ---
Date of Service January 20, 2024 Assessment & Plan (1) Alcohol dependence: Plan: Presents with acute alcohol intoxication, was found down in mulch with a strain bottle nearby Was agitated in the ER. Received Librium 100, lorazepam 2 mg x 3, and phenobarbital 130 mg IM x 1, phenobarbital 65 mg IM x 1 preadmission CThead, CTC-spine without acute findings or evidence of fracture Patient somnolent, falls back asleep and does not offer history at time of assessment however is guarding airway and lungs are clear Continue end-tidal CO2. Do not use PPV due to sedation. Does not require intubation at time of admitting assessment Patient has received the phenobarbital and Librium 100 in the ER. Will defer AARON S pharmacologic standing orders due to risk of respiratory suppression. If patient is with increasing agitation/sedating than would favor phenobarbital given his history we will reassess at the bedside as needed. indication for additional dosing or intubation at time of admitting assessment. Afebrile, no leukocytosis. Bicytopenia likely from alcohol suppression. No LILO. Repeat alcohol level is clear, osmolality is normal, and patient does not have an anion or osmolar gap Admitted to PCU for monitoring (2) Schizoaffective disorder: Plan: Continue olanzapine once alert enough to take medications. May resume hydroxyzine 10 mg as needed as needed for anxiety when alert enough to take medication Plan DVT prophylaxis: SCDs, patient with history of severe GI bleeds on Protonix twice daily and continued alcohol use Diet: N.p.o. until mentation improved Disposition: PCU CODE STATUS: Full code Admission and Anticipated Discharge Date Admission Date: January 20, 2024 History of Present Illness Primary Care Provider: Cristy Connell DO Patient seen in the ER. History is limited by sedation, and intoxication. Per history patient was brought in with elevated alcohol, extremely agitated. Received Librium, Ativan x 3, and phenobarbital x 2 while in the ER. Positive alcohol. Prior admissions for GI bleed, because affective disorder, psychosis with somatic delusions. Further history from patient is not available due to sedation/intoxication. He is guarding his airway at time of bedside assessment, saturating normally on room air, end-tidal CO2 in place. Allergies Allergy/AdvReac Type Severity Reaction Status Date / Time No Known Allergies Allergy Mild Verified 12/17/23 23:57 Home Medications Medication Instructions Recorded Confirmed Type pantoprazole 40 mg tablet,delayed 40 mg PO BID #60 tabs 09/24/23 12/17/23 Rx release thiamine HCl (vitamin B1) 100 mg 500 mg (5 x 100 mg) PO QAM #30 tabs 09/24/23 12/17/23 Rx tablet hydroxyzine HCl 10 mg tablet 10 mg PO DAILY PRN Anxiety 12/08/23 12/17/23 History olanzapine 20 mg tablet 20 mg PO HS 12/08/23 12/17/23 History ferrous sulfate 325 mg (65 mg 325 mg PO 3XWK 12/17/23 12/17/23 History iron) tablet,delayed release Past Med/Surg History Problem List (Updated 01/20/24 @ 09:32 by Marcel Gonzales MD) Alcohol dependence (Acute) Delirium tremens (Acute) Alcohol withdrawal (Acute) Schizoaffective disorder Encounter for assessment of decision-making capacity Acute gastrointestinal bleeding (Acute) Acute blood loss anemia Symptomatic anemia Encephalopathy Elevated troponin (Acute) AMS (altered mental status) (Acute) Anemia (Acute) Syncope (Acute) Seizure (Acute) Primary osteoarthritis, left ankle and foot Alcohol abuse (Acute) Alcohol abuse (Acute) Alcohol intoxication (Acute) Fall (Acute) [id number] (Acute) Medical History Janiya Unspecified psychosis not due to a substance or known physiological condition Iron deficiency anemia Alcohol dependence Alcohol abuse Schizophrenia Social History Smoking Status: Unknown if ever smoked Tobacco Type: Smokeless Tobacco (Dip or Chew) Second Hand Exposure: No; Do You Dip or Chew Tobacco: Yes; Hx Alcohol Use: Yes Alcohol type: hard liquor Hx Substance Use: No Preferred Language: Turkmen Communication Ability: Effective Commercial Director Required: No Beliefs That Will Affect Care: None Current Living Situation: Alone Current Living Situation Comment: Mother lives nearby. current occupational status: disabled Feels Safe at Home: Yes Gender Identity: Male Assistive Devices: None Physical Exam Physical Exam: General: Sedated, arouses transiently to sternal rub and voice but falls back asleep easily. HEENT: Atraumatic, normocephalic. Guarding airway Pulm: CTAB A&P. -wheezes, -rales, -rhonchi. Symmetrical chest rise. No increase in work of breathing. No respiratory distress. Cardiac: Regular, tachycardic radial pulses intact and symmetrical. Abdominal: Soft Results & Data Results & Data Vital Signs (Past 12 Hours) Vital Signs Pulse Pulse Resp BP BP Pulse Ox O2 Del Method 01/20/24 10:23 92 H 19 134/78 98 Room Air 01/20/24 07:58 77 01/20/24 07:46 69 19 146/86 H 98 Room Air 01/20/24 05:00 63 14 136/91 99 Room Air 01/20/24 04:38 14 138/94 99 Room Air 01/20/24 03:59 96 H 16 135/78 01/20/24 03:17 72 01/20/24 03:13 103 H 28 H 135/78 01/20/24 03:01 90 24 135/78 95 Room Air 01/20/24 01:24 97 H 18 167/109 H 99 Room Air Code Status & VTE Plan VTE Prophylaxis Plan VTE Prophylaxis will be ordered: Yes PG Care Time/CCT Total # of Minutes Spent Total Time Spent with Patient: Total time spent is greater than 50% in coordination of care (as documented) at patient's floor/unit and/or counseling patient: Coding Level of Care Code 92343 INT INP/OBS CARE 2MIN Diagnoses Alcohol dependence F10.29 Substance use status: unspecified alcohol-induced disorder Schizoaffective disorder, unspecified type F25.9 Schizoaffective disorder type: unspecified (1) Alcohol dependence Substance use status: unspecified alcohol-induced disorder Qualified Code(s): F10.29 - Alcohol dependence with unspecified alcohol-induced disorder (2) Schizoaffective disorder Schizoaffective disorder type: unspecified Qualified Code(s): F25.9 - Schizoaffective disorder, unspecified
[2024-01-20 17:07] VITALS: BP 180/102; PULSE 74; RESP 16; O2SAT 99
--- NOTE | 2024-01-20 17:11 | Discharge Summary ---
Date of Service January 20, 2024 Admission HPI Per Admitting Provider Patient seen in the ER. History is limited by sedation, and intoxication. Per history patient was brought in with elevated alcohol, extremely agitated. Received Librium, Ativan x 3, and phenobarbital x 2 while in the ER. Positive alcohol. Prior admissions for GI bleed, because affective disorder, psychosis with somatic delusions. Further history from patient is not available due to sedation/intoxication. He is guarding his airway at time of bedside assessment, saturating normally on room air, end-tidal CO2 in place. Discharge Data Consultations 01/20/24 03:17 ED Decision to Admit Stat Hospital Course (1) Alcohol dependence: Seen at bedside on reevaluation. On late afternoon evaluation he is awake and oriented to name, place, day month and year, and is able to recount the events of the previous night. He reports he went to a concert and drink much more than normal got sleepy and laid down on the grass to take a nap but passed out. He reports he drinks 3 to 4 days a week around 440s at a time. Denies history of severe withdrawal, reports that he is not interested in any resources to reduce or limit his drinking at this time. Discussed that he received a large amount of medication for agitation including phenobarbital, Librium, lorazepam which can sedate breathing which can lead to permanent damage including coma and . Patient voices understanding of this, and that any additional alcohol is likely to compound this effect which may be life-threatening or fatal and that both Librium and phenobarbital will stay in his system for up to several days. He reports that he understands this, and is able to elicit the risks of discharge however does wish to leave AMA. He denies anxiety/depression, hallucinations, suicidal ideation, and homicidal ideation and is not 302 above. Respiration unlabored and guarding airway at time of conversation. he expresses an understanding of the risks of signing out AMA but continues to wish to do so, paperwork was supplied and patient subsequently signed out AMA. (2) Schizoaffective disorder: Coding Level of Care Code None Diagnoses Alcohol dependence F10.29 Substance use status: unspecified alcohol-induced disorder Schizoaffective disorder, unspecified type F25.9 Schizoaffective disorder type: unspecified
[2024-01-20] MEDS ORDERED: OLANZapine 20 MG TABLET PO SCH (21:00)
== END 2024-01-20 17:38 | disposition left against medical advice (07) ==
LOC: SUATTDRO → EDINP 23:08 → ED 23:08 → EDINP 01-20 11:28